=== PATIENT | male | born 1985 | race Caucasian/White ===

== ENCOUNTER 2020-06-20 20:59 | Emergency (ER) | payer SELFPAY ==
--- NOTE | 2020-06-20 21:01 | XR_ITS ---
WS: [id number] CHEST XRAY TECHNIQUE: Portable chest. CLINICAL INFORMATION: cough COMPARISON: FINDINGS: Heart: Normal cardiac silhouette. Lungs: Lungs are clear. No consolidation or pleural effusion. Bones: Normal visualized bony structures. XR/XR chest 1V portable [id number] IMPRESSION: Normal chest
[2020-06-20 21:07] VITALS: BP 110/68; PULSE 74; RESP 18; TEMP 36.8; O2SAT 99; BMI 20.3
--- NOTE | 2020-06-20 21:31 | W.ED.FEVER ---
HPI - Fever General: Chief Complaint: Fever Stated Complaint: covid symptoms Time Seen by Provider: 06/20/20 21:15 History of Present Illness: HPI Narrative: Patient started with fever and chills and muscle aches today. No known COVID exposure. Does have a nonproductive cough MD elicited complaint: fever Onset (ago): hour(s) Measured temperature: 100.2 F Exacerbating factors: nothing Relieving factors: nothing Associated symptoms: Reports chills, cough and nasal congestion; Deny abdominal pain, chest pain, extremity pain, headache(s), nausea or vomiting Review of Systems Const: Reports: fever(s), chills and body aches Eyes: Denies: change in vision or blurry vision ENMT: Reports: nasal congestion Card: Denies: chest pain or dyspnea on exertion Resp: Reports: non-productive cough; Denies: dyspnea or productive cough GI: Denies: abdominal pain, nausea or vomiting : Denies: difficulty urinating Musc: Denies: extremity pain Skin/Breast: Denies: rash Neuro: Denies: headache(s) Psych: Denies: anxiety or depression Rogerio/Lymph: Denies: easy bruising Physical Exam Const: COMMON NORMALS: no acute distress, average body habitus and patient oriented x3 HENMT: COMMON NORMALS: normocephalic HEAD & SCALP: normal to inspection and normocephalic FACE & SINUS: normal facial exam Eye: COMMON NORMALS: conjunctivae normal GENERAL EYE: appearance normal, both eyes and all related structures CONJUNCTIVA: Yes conjunctivae normal Neck/C-Spine: COMMON NORMALS: no JVD Chest: COMMONS NORMALS: normal inspection of the chest Resp: COMMON NORMALS: normal respiratory effort Cardio: COMMON NORMALS: no JVD, regular rate and regular rhythm RATE: regular rate RHYTHM: regular rhythm Extremity: COMMON NORMALS: normal to inspection and full ROM Neuro: COMMON NORMALS: patient oriented x3 Course Vital Signs: Vital signs: Vital Signs Temperature 98.3 F 06/20/20 21:07 Pulse Rate 73 06/20/20 22:06 Respiratory Rate 18 06/20/20 22:06 Blood Pressure 113/65 06/20/20 22:06 Pulse Oximetry 98 06/20/20 22:06 Discharge Plan Discharge Patient Disposition: Home Clinical Impression: Viral infection Condition: Stable Discharge Orders: Discharge Order (Routine); Ordered 06/20/20 Ordered By: Donnie Neal Discharge Diet: Usual diet Discharge Activity: Increase activity as tolerated Patient Instructions: Viral Syndrome (ED) Activity Restrictions/Additional Instructions: Follow-up with medical provider as directed. Take Tylenol and/or ibuprofen for discomfort and fever. Return to the ER or your medical provider if condition worsens. Please read and understand discharge instructions. If any questions ask please. Self quarantine until test results are back which should be about 3 to 4 days Discharge Date/Time: 06/20/20 22:08 Coding Level of Care Code ED Sales Service Executive for Maria L Fwd Exam Comprehensive
[2020-06-20 22:06] VITALS: BP 113/65; PULSE 73; RESP 18; O2SAT 98
[2020-06-22 15:28] LABS: Quest SARS-CoV-2 RNA NOT DETECTED (NOT DETECTED)
--- NOTE | 2020-06-22 16:42 | PC.NURSE ---
PT CONTACTED AND INFORMED OF HIS NEG COVID RESULTS.
== END 2020-06-20 22:08 | disposition home or self-care (01) ==
PROVIDERS: Emergency Provider Nurse Practitioner Family
DX: R50.9 Fever, unspecified (principal)
CPT/HCPCS: 12345; 71045; 87635; 99281; 99283

== ENCOUNTER 2020-09-06 11:56 | Emergency (ER) | payer SELFPAY ==
[2020-09-06 12:04] VITALS: BP 135/99; PULSE 102; RESP 18; TEMP 36.6; O2SAT 100; BMI 20.9
--- NOTE | 2020-09-06 12:19 | XRR_ITS ---
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 COMPARISON: [place] wo [place]* [id number] 11/05/2013 1:15 PM FINDINGS: Bones/joints: Normal. No acute fracture. Normal alignment. Soft tissues: Unremarkable. XR/XR thoracic spine 3V* [id number] IMPRESSION: No acute findings.
--- NOTE | 2020-09-06 12:23 | W.ED.BACK ---
HPI - Back Pain/Injury General: Chief Complaint: Back Pain/Injury Stated Complaint: BACK PAIN/SOB Time Seen by Provider: 09/06/20 12:18 Source: patient Mode of arrival: ambulatory Limitations: no limitations History of Present Illness: HPI Narrative: Pleasant 35-year-old male patient presents to the emergency department with 2-day history of thoracic back pain. He reports lifting cross ties yesterday, reports pain started with activity, worsened throughout the day and is much worse this morning. He reports pain is located between his shoulder blades, medicated with Tylenol and ibuprofen without much relief. He reports pain when taking a deep breath, pain reproduced to the back. Denies fever chills or weakness of the upper or lower extremities. MD elicited complaint: back pain and back injury Onset (ago): day(s) (2) Timing: constant and progressively worsening Severity: moderate Quality: sharp and aching Location: thoracic spine Radiation: none Exacerbating factors: movement and deep breaths Relieving factors: immobilization and supine Context: while lifting Associated symptoms: Reports no associated symptoms; Deny abdominal pain, chills, dysuria, fatigue, fever(s), nausea, urinary urgency or vomiting Treatments prior to arrival: NSAIDS and acetaminophen Review of Systems General: Reports: 10 or more systems reviewed and unremarkable except in HPI and below Const: Denies: fever(s), chills, body aches, fatigue, malaise or diaphoresis Eyes: Denies: blurry vision, eye discomfort or eye redness ENMT: Denies: throat pain, uvular edema, hoarseness, dental pain, disequilibrium or nasal discharge Card: Denies: chest pain, palpitations, irregular heart rhythm or dyspnea on exertion Resp: Denies: dyspnea, productive cough, non-productive cough or wheezing GI: Denies: abdominal pain, nausea or vomiting : Denies: dysuria, urinary urgency, difficulty starting urination or urinary incontinence Musc: Reports: back pain and limited range of motion (upper back); Denies: neck pain, joint stiffness, muscle cramps or muscle weakness Skin/Breast: Denies: rash or pruritus Neuro: Denies: headache(s), weakness in extremities or behavioral changes Rogerio/Lymph: Denies: easy bruising Physical Exam Const: COMMON NORMALS: no acute distress, patient oriented x3, healthy appearing and alert GENERAL APPEARANCE: cooperative, comfortable, well kempt and well hydrated ORIENTATION/CONSCIOUSNESS: Yes awake, Yes oriented to person, Yes oriented to place and Yes oriented to time HENMT: COMMON NORMALS: normocephalic, atraumatic, Normal external nose present and moist oral mucous membranes HEAD & SCALP: normal to inspection, normocephalic and atraumatic FACE & SINUS: normal facial exam NOSE: Normal external nose present MOUTH: Normal oral and palatal mucosa present THROAT: no uvular edema Eye: COMMON NORMALS: Equal, round and reactive pupils present and EOMs intact bilaterally GENERAL EYE: appearance normal, both eyes and all related structures PUPIL: Yes Equal, round and reactive pupils present Neck/C-Spine: COMMON NORMALS: full ROM and no lymphadenopathy GENERAL: Yes normal visual inspection, Yes trachea midline and No anterior neck swelling CERVICAL SPINE: Yes cervical ROM normal, No pain with cervical ROM, No Cervical spine tenderness, No Paracervical muscle tenderness, No Paracervical spasm and No Trapezius muscle tenderness Lymph: LYMPHATIC: no lymphadenopathy noted Chest: COMMONS NORMALS: normal inspection of the chest and normal palpation of entire chest wall CHEST: Yes localized rib tenderness with anteroposterior compression Resp: COMMON NORMALS: normal respiratory effort, No retractions, No use of accessory muscles and clear to auscultation bilaterally EFFORT & INSPECTION: Yes able to speak in complete sentences AUSCULTATION: clear to auscultation bilaterally Cardio: COMMON NORMALS: regular rhythm, S1 normal heart sound present, S2 normal heart sound present and Peripheral pulses 2+ throughout RHYTHM: regular rhythm HEART SOUNDS: S1 normal heart sound present and S2 normal heart sound present PERIPHERAL PULSES: Peripheral pulses 2+ throughout GI: COMMON NORMALS: Soft to palpation and non-tender INSPECTION: Yes normal to inspection PALPATION: Yes Soft to palpation : COMMON NORMALS: Yes no CVA tenderness BLADDER/KIDNEY EXAM: Yes no CVA tenderness and No CVA tenderness Back/Pelvis: COMMON NORMALS: no CVA tenderness and thoracic and lumbar spine normal to inspection GENERAL BACK: No CVA tenderness THORACIC SPINE/UPPER BACK: Yes ROM limited, Yes pain with ROM, Yes thoracic spinal tenderness T-spine tenderness location: T5, T6, T7 and T8, No paraspinal muscle tenderness and No paraspinal muscle spasm LUMBAR SPINE/LOWER BACK: Yes normal to inspection, Yes lumbar ROM normal, No pain with ROM, No lumbar spinal tenderness, No paraspinal muscle tenderness and No paraspinal muscle spasm PELVIS: Yes buttocks normal SACROILIAC JOINTS: Yes SI joints normal SACRUM: no ecchymosis COCCYX: no swelling Extremity: COMMON NORMALS: normal to inspection and capillary refill normal Neuro: JCARLOS COMA SCALE: document GCS findings Jcarlos coma scale eye opening: Spontaneous Jcarlos coma scale verbal response: Orientated [place] coma scale motor response: Obey commands Jcarlos coma scale total score: 15 COMMON NORMALS: patient oriented x3 and no focal motor deficits SENSORIUM/ORIENTATION: Yes alert, Yes oriented to person, Yes oriented to place and Yes oriented to time SPEECH: speech normal GAIT: Yes Normal gait present MOTOR EXAM: 5/5 motor strength present throughout Psych: COMMON NORMALS: mental status grossly normal, Normal thought process present and cooperative APPEARANCE: Yes well kempt ACTIVITY/MOTOR BEHAVIOR: Yes appropriate eye contact THOUGHT PROCESS: Normal thought process present Skin: COMMON NORMALS: no rashes or lesions noted and turgor normal GENERAL SKIN EXAM: no rashes or lesions noted and turgor normal Course Vital Signs: Vital signs: Vital Signs Temperature 97.8 F 09/06/20 12:04 Pulse Rate 102 H 09/06/20 12:04 Respiratory Rate 18 09/06/20 12:04 Blood Pressure 135/99 09/06/20 12:04 Pulse Oximetry 100 09/06/20 12:04 MDM - Back Pain/Injury Imaging Data^: Xray Ortho: Radiologist's impression: [address] [address] XRay Report Signed Patient: Rinku Mora Unit #: [id number] : 1985 Age/Sex: 35 / M ADM Date: 09/06/20 Loc: ER Room/Bed: Attending Dr: Ordering Provider/Ordering MD: Sandra Sylvester Date of Service: 09/06/20 Procedure(s): XR thoracic spine 3V* [id number] Accession Number(s): [id number] Report Number: [id number] PROCEDURE INFORMATION: Exam: XR Thoracic Spine, 3 Views Exam date and time: 09/06/2020 12:30 PM Age: 35 years old Clinical indication: Pain in thoracic spine; Patient HX: 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 COMPARISON: [place]* [id number] 11/05/2013 1:15 PM FINDINGS: Bones/joints: Normal. No acute fracture. Normal alignment. Soft tissues: Unremarkable. XR/XR thoracic spine 3V* [id number] IMPRESSION: No acute findings. Dictated By: Robin eBavers Signed By: Robin Beavers Signed Date/Time: 09/06/201357 DD/ 56 Discharge Plan Discharge Patient Disposition: Home Clinical Impression: Thoracic back sprain Qualifiers: Encounter type: initial encounter Qualified Code(s): S23.9XXA - Sprain of unspecified parts of thorax, initial encounter Thoracic back pain Qualifiers: Chronicity: acute Back pain laterality: midline Qualified Code(s): M54.6 - Pain in thoracic spine Condition: Stable Prescriptions: New cyclobenzaprine 10 mg tablet 10 mg PO TID PRN (Reason: muscle spasm) Qty: 15 RF: 0 IBU 800 mg tablet 800 mg PO TID PRN (Reason: pain) Qty: 30 RF: 0 Discharge Orders: Discharge Order (Routine); Ordered 09/06/20 Ordered By: Sandra Sylvester Discharge Diet: Usual diet Discharge Activity: Limit activity as instructed Patient Instructions: Muscle Strain (ED), Back Pain (ED) Activity Restrictions/Additional Instructions: Do not drive while taking cyclobenzaprine, do not operate heavy machinery as medication will cause drowsiness Do not take [id number] ibuprofen Aleve or naproxen as duplication of therapy can occur with use of prescribed ibuprofen Warm compresses alternate with cool compresses, apply to area as needed for pain Return to the emergency department if you develop upper extremity weakness, difficulty walking or fever/chills No heavy lifting for the next 48 to 72 hours Follow up with your PCP next week if not improved Stand Alone Forms: Work/School Release Coding Level of Care Code ED Gas Furnace Installer for Maria L Fwghazala Exam Comprehensive
[2020-09-06] MEDS: acetaminophen 500 mg Tablet 1000 MG PO (14:20)
== END 2020-09-06 14:23 | disposition home or self-care (01) ==
PROVIDERS: Emergency Provider Nurse Practitioner Family
DX: S23.9XXA Sprain of unspecified parts of thorax, initial encounter (principal); X50.0XXA Overexertion from strenuous movement or load, initial encounter
CPT/HCPCS: 12345; 72072; 99281; 99283

== ENCOUNTER 2022-01-10 11:36 | Emergency (ER) | payer SELFPAY ==
[2022-01-10 12:11] VITALS: BP 104/63; PULSE 67; RESP 15; TEMP 36.6; O2SAT 96; BMI 20.3
--- NOTE | 2022-01-10 13:02 | ED_ITS ---
HPI - Ear Problem General: Chief complaint: Ear Stated complaint: right ear pain Time Seen by Provider: 01/10/22 12:26 History of Present Illness: Patient is a 36-year-old male comes to the ED with right ear pain. Symptoms started yesterday. denies any injury to head. Denies any clear, bloody or purulent drainage from right ear. He says the ear feels full and he has trouble hearing out of the right ear. He rates the pain a 7 out of 10. Denies getting any water in ear recently. Associated symptoms: Reports ear or mastoid pain (right ear pain); Denies fever(s), headache(s) or neck pain Review of Systems Const: Denies: fever(s), chills or fatigue Eyes: Denies: change in vision or eye discomfort ENMT: Reports: ear or mastoid pain (right ear pain); Denies: throat pain, odynophagia, nasal discharge or nasal congestion Card: Denies: chest pain, palpitations, edema, swelling of feet/ankles, dyspnea on exertion or orthopnea Resp: Denies: dyspnea, productive cough or non-productive cough GI: Denies: abdominal pain, nausea, vomiting, diarrhea, constipation or hematochezia : Denies: flank pain, difficulty urinating, dysuria or hematuria Musc: Denies: neck pain, back pain or extremity swelling Skin/Breast: Denies: rash or new lesions Neuro: Denies: headache(s), numbness in extremities or weakness in extremities PFS ED PFSH: Medical History No pertinent family history Surgical History No pertinent past surgical history Physical Exam Const: COMMON NORMALS: no acute distress, patient oriented x3 and alert GENERAL APPEARANCE: cooperative and comfortable HENMT: COMMON NORMALS: normocephalic HEAD & SCALP: normocephalic EXTERNAL AUDITORY CANAL: Abnormal EAC present EAC laterality: right Details: erythema, edema and EAC tenderness TYMPANIC MEMBRANE: TM normal on the left and unable to visualize TM (Could not see left TM due to EAC swelling) MOUTH: Normal oral and palatal mucosa present THROAT: posterior oropharynx normal a nd uvula midline Neck/C-Spine: COMMON NORMALS: supple GENERAL: Yes normal visual inspection Resp: COMMON NORMALS: normal respiratory effort, No retractions, No use of accessory muscles and clear to auscultation bilaterally AUSCULTATION: clear to auscultation bilaterally Cardio: COMMON NORMALS: regular rate, regular rhythm, S1 normal heart sound present, S2 normal heart sound present, No gallops present (Cardio), No clicks present (Cardio), No murmurs present (Cardio) and Peripheral pulses 2+ throughout RATE: regular rate RHYTHM: regular rhythm HEART SOUNDS: S1 normal heart sound present and S2 normal heart sound present PERIPHERAL PULSES: Peripheral pulses 2+ throughout GI: COMMON NORMALS: Normal to inspection, nondistended, normoactive bowel sounds present, Soft to palpation, non-tender and no masses PALPATION: Yes Soft to palpation : COMMON NORMALS: Yes no CVA tenderness BLADDER/KIDNEY EXAM: Yes no CVA tenderness Back/Pelvis: COMMON NORMALS: no CVA tenderness Extremity: COMMON NORMALS: normal to inspection Neuro: COMMON NORMALS: patient oriented x3 SENSORIUM/ORIENTATION: Yes alert Skin: GENERAL SKIN EXAM: dry skin Course Vital Signs: Vital signs: Vital Signs Temperature 97.8 F 01/10/22 12:11 Pulse Rate 67 01/10/22 12:11 Respiratory Rate 15 01/10/22 12:11 Blood Pressure 104/63 01/10/22 12:11 Pulse Oximetry 96 01/10/22 12:11 MDM - Ear Medical Decision Making Patient is a 36-year-old male comes to the ED with right ear pain. Vitals are stable. Exam of right ear shows a swollen erythemic and tender external auditory canal. I was unable to visualize TM due to EAC swelling. Patient diagnosed with otitis externa and was discharged home with Ciprodex and some cefdinir to cover possible inner ear infection since I was unable to visualize TM. He was told to follow-up with PCP in the next 5 to 7 days reevaluation. Return ED precautions given. Patient understood agree with plan. Discharge Plan Discharge Patient Disposition: Home Clinical Impression: Otitis externa Qualifiers: Otitis externa type: unspecified type Chronicity: acute Laterality: right Qualified Code(s): H60.501 - Unspecified acute noninfective otitis externa, right ear Condition: Stable Prescriptions: New Ciprodex 0.3-0.1 % drops,suspension 4 drp otic (ear) BID 7 Days Qty: 7.5 0RF cefdinir 300 mg capsule 300 mg PO BID 10 Days Qty: 20 0RF No Action cyclobenzaprine 10 mg tablet 10 mg PO TID PRN (Reason: muscle spasm) Qty: 15 0RF IBU 800 mg tablet 800 mg PO TID PRN (Reason: pain) Qty: 30 0RF Rx Instructions: take 1 PO TID PRN pain - take with food to avoid stomach upset Discharge Orders: Discharge ED (Routine); Ordered 01/10/22 Ordered By: Priyank Ledezma Discharge Diet: Regular Discharge Activity: Increase activity as tolerated Activity Restrictions/Additional Instructions: Follow-up with medical provider as directed in the next 5 to 7 days for reevaluation. Take medications as prescribed. Return to the ER or your medical provider if condition worsens. Please read and understand discharge instructions. Thank you for choosing [facility] for your healthcare needs today. Please realize this is an emergency room and that we are providing you with a medical screening exam and this may not be complete and all inclusive of all the testing and or work up that you may need to determine your ailment or severity of your illness. It is very important that you follow up as instructed or that you return to the Emergency Department should you have concerns or if your condition changes or worsens in any way. Coding Level of Care Code ED Market Research Associate for Maria L Bradshaw Exam Comprehensive
[2022-01-10] MEDS: carbamide peroxide Otic 15 mL Btl 5 DROP EAR-RIGHT (14:07)
== END 2022-01-10 15:00 | disposition home or self-care (01) ==
PROVIDERS: Emergency Provider Physician Assistant
DX: H60.501 Unspecified acute noninfective otitis externa, right ear (principal)
CPT/HCPCS: 99282

== ENCOUNTER 2022-01-17 08:54 | Emergency (ER) | payer SELFPAY ==
[2022-01-17 09:04] VITALS: BP 112/54; PULSE 73; RESP 15; TEMP 36.5; O2SAT 100; BMI 20.3
--- NOTE | 2022-01-17 09:25 | ED_ITS ---
HPI - Ear Problem General: Chief complaint: Ear Stated complaint: R Ear pain Time Seen by Provider: 01/17/22 09:05 History of Present Illness: Patient is a 36-year-old male comes to the ED with right ear pain. Patient was seen here in the ED for same complaint back on January 10 and he was diagnosed with otitis externa. Patient has been using his Ciprodex eardrops as prescribed daily along with taking the oral antibiotic. He is still having a lot of pain in right ear. Denies any ear discharge or drainage. Pain is rated a 10 out of 10. Associated symptoms: Reports ear or mastoid pain; Denies fever(s), headache(s) or neck pain Review of Systems Const: Denies: fever(s), chills or fatigue Eyes: Denies: change in vision or eye discomfort ENMT: Reports: ear or mastoid pain; Denies: throat pain, odynophagia, nasal discharge or nasal congestion Card: Denies: chest pain, palpitations, edema, swelling of feet/ankles, dyspnea on exertion or orthopnea Resp: Denies: dyspnea, productive cough or non-productive cough GI: Denies: abdominal pain, nausea, vomiting, diarrhea, constipation or hematochezia : Denies: flank pain, difficulty urinating, dysuria or hematuria Musc: Denies: neck pain, back pain or extremity swelling Skin/Breast: Denies: rash or new lesions Neuro: Denies: headache(s), numbness in extremities or weakness in extremities PFS ED PFSH: Medical History No pertinent family history Surgical History No pertinent past surgical history Physical Exam Const: COMMON NORMALS: patient oriented x3 and alert GENERAL APPEARANCE: cooperative and comfortable HENMT: COMMON NORMALS: normocephalic HEAD & SCALP: normocephalic EXTERNAL AUDITORY CANAL: Abnormal EAC present EAC laterality: right Details: erythema, edema and EAC tenderness MOUTH: Normal oral and palatal mucosa present THROAT: posterior oropharynx normal and uvula midline Neck/C-Spine: COMMON NORMALS: supple GENERAL: Yes normal visual inspection Resp: COMMON NORMALS: normal respiratory effort, No retractions, No use of accessory muscles and clear to auscultation bilaterally AUSCULTATION: clear to auscultation bilaterally Cardio: COMMON NORMALS: regular rate, regular rhythm, S1 normal heart sound present, S2 normal heart sound present, No gallops present (Cardio), No clicks present (Cardio), No murmurs present (Cardio) and Peripheral pulses 2+ throughout RATE: regular rate RHYTHM: regular rhythm HEART SOUNDS: S1 normal heart sound present and S2 normal heart sound present PERIPHERAL PULSES: Peripheral pulses 2+ throughout GI: COMMON NORMALS: Normal to inspection, nondistended, normoactive bowel sounds present, Soft to palpation, non-tender and no masses PALPATION: Yes Soft to palpation : COMMON NORMALS: Yes no CVA tenderness BLADDER/KIDNEY EXAM: Yes no CVA tenderness Back/Pelvis: COMMON NORMALS: no CVA tenderness Extremity: COMMON NORMALS: normal to inspection Neuro: COMMON NORMALS: patient oriented x3 and moves all extremities SENSORIUM/ORIENTATION: Yes alert Skin: GENERAL SKIN EXAM: dry skin Course Vital Signs: Vital signs: Vital Signs Temperature 97.7 F 01/17/22 09:04 Pulse Rate 73 01/17/22 09:04 Respiratory Rate 15 01/17/22 09:04 Blood Pressure 112/54 01/17/22 09:04 Pulse Oximetry 100 01/17/22 09:04 MDM - Ear Medical Decision Making Patient is a 36-year-old male comes to the ED with right ear pain. He was seen here in the ED for same complaint back on January 10 and was given an oral antibiotic and Ciprodex eardrops. He has been using those and does not have any improvement. Patient's right external auditory canal has tenderness, swelling and erythema. Since patient's right otitis externa does not seem to be improving much I am referring him to ENT for follow-up. I placed order with case management for patient to be set up with an appointment with ENT specialist. He was sent home with a prescription for tramadol for pain and told to continue using his eardrops as previously prescribed. Patient understood and agreed with plan. Discharge Plan Discharge Patient Disposition: Home Clinical Impression: Otitis externa Condition: Stable Prescriptions: No Action cyclobenzaprine 10 mg tablet 10 mg PO TID PRN (Reason: muscle spasm) Qty: 15 0RF IBU 800 mg tablet 800 mg PO TID PRN (Reason: pain) Qty: 30 0RF Rx Instructions: take 1 PO TID PRN pain - take with food to avoid stomach upset cefdinir 300 mg capsule 300 mg PO BID 10 Days Qty: 20 0RF Discharge Orders: Discharge ED (Routine); Ordered 01/17/22 Ordered By: Priyank Ledezma Discharge Diet: Regular Discharge Activity: Increase activity as tolerated Patient Instructions: Otitis Externa - Adult Activity Restrictions/Additional Instructions: Follow-up with medical provider as directed. Case management should be contacting you in the next of days set up an appointment with ENT doctor. Continue using eardrops and taking oral antibiotic as prescribed. Take medications as prescribed.Return to the ER or your medical provider if condition worsens. Please read and understand discharge instructions. Thank you for choosing [facility] for your healthcare needs today. Please realize this is an emergency room and that we are providing you with a medical screening exam and this may not be complete and all inclusive of all the testing and or work up that you may need to determine your ailment or severity of your illness. It is very important that you follow up as instructed or that you return to the Emergency Department should you have concerns or if your condition changes or worsens in any way. Coding Level of Care Code ED Collections Attorney for Maria L Fwd Exam Comprehensive
[2022-01-17] MEDS: TRAMadol 50 mg Tablet 100 MG PO (10:00)
--- NOTE | 2022-01-18 13:14 | DCPLANNER ---
Addendum entered by Tere Huang 02/01/22 12:38: Patient had a follow up appointment scheduled for 01.22.22 with ENT - patient did attend appointment. Addendum entered by Tere Huang 01/19/22 06:56: Patient has a follow up appointment scheduled for Saturday, January 22, 2022 at 3:[address] Celis at ENT. Clinic will call patient with appointment information. Original Note: manager books had message to schedule a follow up appointment for patient with ENT. manager books sent patients information to the front office staff at ENT for review. Patients information will be printed and reviewed. Clinic will call patient with appointment information.
== END 2022-01-17 10:15 | disposition home or self-care (01) ==
PROVIDERS: Emergency Provider Physician Assistant
DX: H60.91 Unspecified otitis externa, right ear (principal)
CPT/HCPCS: 99283

== ENCOUNTER 2022-05-29 11:11 | Emergency (ER) | payer SELFPAY ==
[2022-05-29 12:16] VITALS: BP 108/67; PULSE 69; RESP 16; TEMP 37.1; O2SAT 99; BMI 20.9
--- NOTE | 2022-05-29 12:21 | ED_ITS ---
HPI - Dental/Oral General: Chief complaint: Dental/Oral Stated complaint: sore throat Time Seen by Provider: 05/29/22 11:14 [facility] ED PFSH: Medical History Hepatitis C No pertinent family history Surgical History History of appendectomy History of cholecystectomy History of tonsillectomy No pertinent past surgical history Family History Other Diabetes Hypertension Social History Smoking and tobacco status: current every day smoker (.5 half a pack a day for 20 yrs) cigarettes Packs smoked per day: 0.5 Years cigarettes smoked: 20 Course Vital Signs: Vital signs: Vital Signs Temperature 98.7 F 05/29/22 12:16 Pulse Rate 69 05/29/22 12:16 Respiratory Rate 16 05/29/22 12:16 Blood Pressure 108/67 05/29/22 12:16 Pulse Oximetry 99 05/29/22 12:16 Discharge Plan Discharge Condition: Stable Prescriptions: No Action cyclobenzaprine 10 mg tablet 10 mg PO TID PRN (Reason: muscle spasm) Qty: 15 0RF IBU 800 mg tablet 800 mg PO TID PRN (Reason: pain) Qty: 30 0RF Rx Instructions: take 1 PO TID PRN pain - take with food to avoid stomach upset Coding Level of Care Code ED Information And Referral Director for Maria L Bradshaw
--- NOTE | 2022-05-29 12:26 | ED_ITS ---
HPI - General Adult General: Chief complaint: Dental/Oral Stated complaint: sore throat Time Seen by Provider: 05/29/22 11:14 Source: patient Mode of arrival: ambulatory Limitations: no limitations History of Present Illness: Patient is a 37-year-old male who presents to ED today with complaint of sore throat that started yesterday. He feels like he is swallowing razor blades . States he is eating and drinking normally. He is not having any difficulty breathing. He is controlling saliva. He states he has no other symptoms apart from the throat pain. No fevers. Onset (ago): day(s) (yesterday) Severity: moderate Quality: sharp Pain Consistency: constant Relieving factors: other (cough drops) Exacerbating factors: other (swallowing) Associated symptoms: Reports no associated symptoms; Deny chest pain, dyspnea, headache(s), malaise, nausea or vomiting Review of Systems Const: Denies: fever(s), chills, body aches, fatigue or malaise Eyes: Denies: change in vision, blurry vision, photophobia, floaters or seeing flashes ENMT: Reports: throat pain and odynophagia; Denies: uvular edema, enlarged tonsils, hoarseness, mouth pain, swelling of lips/tongue, oral sores, bleeding gums, dental pain, ear or mastoid pain, nasal discharge, nasal congestion, post nasal drip or sinus pain Card: Denies: chest pain Resp: Denies: dyspnea GI: Denies: abdominal pain, nausea or vomiting Musc: Denies: neck pain Neuro: Denies: headache(s) PFS ED PFSH: Medical History Hepatitis C No pertinent family history Surgical History History of appendectomy History of cholecystectomy History of tonsillectomy No pertinent past surgical history Family History Other Diabetes Hypertension Social History Smoking and tobacco status: current every day smoker (.5 half a pack a day for 20 yrs) cigarettes Packs smoked per day: 0.5 Years cigarettes smoked: 20 Physical Exam Const: COMMON NORMALS: no acute distress, average body habitus, patient or iented x3, no limitations, healthy appearing, alert and well nourished GENERAL APPEARANCE: cooperative ORIENTATION/CONSCIOUSNESS: Yes awake, Yes o riented to person, Yes oriented to place and Yes oriented to time HENMT: COMMON NORMALS: normocephalic, atraumatic, Normal nasal mucous membranes and turbinates present and moist oral mucous membranes HEAD & SCALP: normal to inspection, normocephalic and atraumatic FACE & SINUS: normal facial exam NOSE: Normal nasal mucous membranes and turbinates present MOUTH: Normal oral and palatal mucosa present, lip normal and tongue normal TEETH & GINGIVA: Yes poor dentition THROAT: uvula midline and other (maybe slight oropharyngeal erythema; s/p tonsillectomy); no uvular edema Eye: GENERAL EYE: appearance normal, both eyes and all related structures Neck/C-Spine: COMMON NORMALS: full ROM, no lymphadenopathy and no meningeal signs GENERAL: Yes normal visual inspection, No anterior neck swelling and No submandibular swelling Resp: COMMON NORMALS: normal respiratory effort and clear to auscultation bilaterally AUSCULTATION: clear to auscultation bilaterally Neuro: COMMON NORMALS: patient oriented x3 and CN's II-XII intact bilaterally SENSORIUM/ORIENTATION: Yes alert, Yes oriented to person, Yes oriented to place and Yes oriented to time MENINGEAL SIGNS: Yes no meningeal signs Skin: COMMON NORMALS: no rashes or lesions noted GENERAL SKIN EXAM: no rashes or lesions noted Course Vital Signs: Vital signs: Vital Signs Temperature 98.7 F 05/29/22 12:16 Pulse Rate 69 05/29/22 12:16 Respiratory Rate 16 05/29/22 12:16 Blood Pressure 108/67 05/29/22 12:16 Pulse Oximetry 99 05/29/22 12:16 [facility] - General Adult Medical Decision Making Strep is negative. Vital signs are normal. There is no need for antibiotic therapy at this time. Discussed conservative treatments at home. Will prescribe viscous lidocaine that he can use temporarily for relief. Return to ED precautions given. Otherwise he can follow-up with PCP in 3 to 5 days if symptoms do not seem to be improving. Lab Data Laboratory Results Group A Strep Rapid Negative (Negative) 05/29/22 12:27 Discharge Plan Discharge Patient Disposition: Home Clinical Impression: Acute pharyngitis Condition: Stable Prescriptions: New Lidocaine Viscous 2 % solution 15 ml MUCOUS MEM QID Qty: 100 0RF Rx Instructions: Mix with water and gargle for 30-60 seconds, then spit No Action cyclobenzaprine 10 mg tablet 10 mg PO TID PRN (Reason: muscle spasm) Qty: 15 0RF IBU 800 mg tablet 800 mg PO TID PRN (Reason: pain) Qty: 30 0RF Rx Instructions: take 1 PO TID PRN pain - take with food to avoid stomach upset Discharge Orders: Discharge ED (Routine); Ordered 05/29/22 Ordered By: Odalis Carcamo Coding Level of Care Code ED Employment Representative for Maria L Bradshaw
[2022-05-29 12:48] LABS: Rapid Strep A Test Negative (Negative)
== END 2022-05-29 13:36 | disposition home or self-care (01) ==
PROVIDERS: Emergency Provider Physician Assistant
DX: J02.9 Acute pharyngitis, unspecified (principal); Z86.19 Personal history of other infectious and parasitic diseases; F17.210 Nicotine dependence, cigarettes, uncomplicated
CPT/HCPCS: 87081; 87880; 99283

== ENCOUNTER 2022-10-09 09:03 | Emergency (ER) | payer SELFPAY ==
[2022-10-09 09:37] VITALS: BP 117/69; PULSE 77; TEMP 36.6; O2SAT 96; BMI 20.9
--- NOTE | 2022-10-09 10:01 | XR_ITS ---
WS: [id number] Right ankle, 3 views, 10/09/2022 Clinical Data: Pain Comparison: None. Findings: No fractures or dislocations are seen. The ankle mortise is normal. The talus and calcaneus are unrem arkable. No soft tissue swelling over the medial or lateral malleolus is seen. XR/XR ankle RT min 3V* [id number] Impression: Negative right ankle.
--- NOTE | 2022-10-09 10:20 | ED_ITS ---
HPI - Extremity Problem General: Chief complaint: Extremity Problem,Nontraumatic Stated complaint: Right leg and feet are swelling Time Seen by Provider: 10/09/22 10:01 Source: patient Mode of arrival: ambulatory History of Present Illness: 37-year-old male presents emergency room complaining of right leg pain and swelling in the distal tibia laterally. He cannot recall any trauma that began 2 days ago and is persisted he perceives her to be some swelling there he is not recall any direct blow or injury he is able to ambulate on it no fever sweats chills no chest pain or shortness of breath MD Complaint: extremity pain and extremity swelling Onset (ago): day(s) (2) Pain Consistency: constant Location: right Quality: aching Radiation: distal Relieving factors: nothing Exacerbating factors: nothing Associated symptoms: Deny arthralgias, chest pain, fever(s), myalgias, rash, short of breath or other Review of Systems Const: Denies: fever(s), chills, fatigue or malaise ENMT: Denies: throat pain, ear or mastoid pain, nasal discharge or nasal congestion Card: Denies: chest pain Resp: Denies: dyspnea, productive cough or non-productive cough GI: Denies: abdominal pain, nausea, vomiting, hematemesis, coffee ground emesis, diarrhea, constipation, bloating, hematochezia or melena : Denies: flank pain, dysuria, urinary frequency or urinary urgency Skin/Breast: Denies: rash PFSH ED PFSH: Medical History Hepatitis C No pertinent family history Surgical History History of appendectomy History of cholecystectomy History of tonsillectomy No pertinent past surgical history Family History Other Diabetes Hypertension Social History Smoking and tobacco status: current every day smoker (.5 half a pack a day for 20 yrs) cigarettes Packs smoked per day: 0.5 Years cigarettes smoked: 20 Physical Exam Const: GENERAL APPEARANCE: cooperative and comfortable ORIENTATION/CONSCIOUSNESS: Yes awake, Yes oriented to person, Yes oriented to place and Yes oriented to time HENMT: COMMON NORMALS: normocephalic, atraumatic and hearing grossly normal bilaterally HEAD & SCALP: normocephalic and atraumatic Resp: COMMON NORMALS: normal respiratory effort, No retractions, No use of accessory muscles and clear to auscultation bilaterally AUSCULTATION: clear to auscultation bilaterally Cardio: COMMON NORMALS: regular rate, regular rhythm and No murmurs present (Cardio) RATE: regular rate RHYTHM: regular rhythm GI: COMMON NORMALS: Soft to palpation and No hepatosplenomegaly present AUSCULTATION: Yes normoactive bowel sounds PALPATION: Yes Soft to palpation, No Tenderness to palpation present (GI), No Guarding due to palpation present (GI) and Yes No hepatosplenomegaly present Extremity: COMMON NORMALS: normal to inspection, capillary refill normal, no clubbing, cyanosis or edema, no calf tenderness and no pedal edema OTHER: Tenderness distal lateral tibia on the right no deformity no edema no ecchymosis no laceration Neuro: SENSORIUM/ORIENTATION: Yes oriented to person, Yes oriented to place and Yes oriented to time Skin: COMMON NORMALS: no rashes or lesions noted GENERAL SKIN EXAM: no rashes or lesions noted Course Vital Signs: Vital signs: Vital Signs Temperature 97.8 F 10/09/22 09:37 Pulse Rate 77 10/09/22 09:37 Blood Pressure 117/69 10/09/22 09:37 Pulse Oximetry 96 10/09/22 09:37 Oxygen Delivery Me thod 10/09/22 09:37 MDM - Extremity (Nontraumatic) Medical Decision Making No acute fracture supportive care follow-up as needed Medical Records I reviewed the patient's medical records. Lab Data I reviewed the patient's lab results. Radiology Impressions Ankle X-Ray 10/09/22 10:01 Impression: Negative right ankle. Tibia/Fibula X-Ray 10/09/22 10:26 Impression: Negative for fracture. Discharge Plan Discharge Patient Disposition: Home Clinical Impression: Leg pain, right Condition: Stable Prescriptions: New diclofenac sodium 75 mg tablet,delayed release (DR/EC) 75 mg PO Q12H PRN (Reason: pain) Qty: 20 0RF No Action cyclobenzaprine 10 mg tablet 10 mg PO TID PRN (Reason: muscle spasm) Qty: 15 0RF IBU 800 mg tablet 800 mg PO TID PRN (Reason: pain) Qty: 30 0RF Rx Instructions: take 1 PO TID PRN pain - take with food to avoid stomach upset Lidocaine Viscous 2 % solution 15 ml MUCOUS MEM QID Qty: 100 0RF Rx Instructions: Mix with water and gargle for 30-60 seconds, then spit Discharge Orders: Discharge ED (Routine); Ordered 10/09/22 Ordered By: Micky Lindquist Discharge Diet: Usual diet Discharge Activity: Resume usual activity Patient Instructions: Opioid Safety, Pain Management Activity Restrictions/Additional Instructions: You were seen in the emergency room for right lower leg pain your x-ray and your exam were normal. Ice elevate use anti-inflammatories if persisting with discomfort follow-up with your primary care doctor. Coding Level of Care Code ED Alarm Signaler for Maria L Fwd Exam Detailed
--- NOTE | 2022-10-09 10:26 | XR_ITS ---
WS: [id number] Right leg including the tibia and fibula, AP and lateral views, 10/09/2022 Clinical Data: pain Comparison: None. Findings: No fractures or dislocations are seen. The tibia and fibula are intact. The soft tissues are normal. XR/XR tibia fibula RT 2V 10023 Impression: Negative for fracture.
== END 2022-10-09 12:45 | disposition home or self-care (01) ==
PROVIDERS: Emergency Provider Family Medicine
DX: M79.604 Pain in right leg (principal); Z86.19 Personal history of other infectious and parasitic diseases; F17.210 Nicotine dependence, cigarettes, uncomplicated
CPT/HCPCS: 73590; 73610; 99283

== ENCOUNTER 2023-02-10 21:33 | Emergency (ER) | payer SELFPAY ==
[2023-02-10 21:44] VITALS: BP 119/76; PULSE 55; RESP 16; TEMP 36.4; O2SAT 100
--- NOTE | 2023-02-10 21:48 | W.ED.DENTAL ---
HPI - Dental/Oral General: Chief complaint: Dental/Oral Stated complaint: Tooth Ache Time Seen by Provider: 02/10/23 21:47 History of Present Illness: 37-year-old male patient comes in today with right upper molar pain radiating into his sinuses. Patient reports symptoms for about 2 days now. Patient feels he needs some antibiotics to treat the infection. Patient appears nontoxic. Patient appears in mild pain. Associated symptoms: Denies fever(s) Review of Systems General: Reports: 10 or more systems reviewed and unremarkable except in HPI and below Const: Denies: fever(s) ENMT: Reports: dental pain Card: Denies: chest pain Resp: Denies: dyspnea GI: Denies: nausea or vomiting : Denies: difficulty urinating Musc: Denies: neck pain or back pain Skin/Breast: Denies: rash PFSH ED PFSH: Medical History Hepatitis C No pertinent family history Surgical History History of appendectomy History of cholecystectomy History of tonsillectomy No pertinent past surgical history Family History Other Diabetes Hypertension Social History Smoking and tobacco status: current every day smoker (.5 half a pack a day for 20 yrs) cigarettes Packs smoked per day: 0.5 Years cigarettes smoked: 20 Physical Exam Const: COMMON NORMALS: alert HENMT: COMMON NORMALS: Normal external nose present FACE & SINUS: Facial tenderness on exam of face and sinuses on the right (Right facial cheek) NOSE: Normal external nose present TEETH & GINGIVA: Yes abnormal tooth and associated gingiva and Yes other (Tenderness to percussion to single molar right upper jaw) Neck/C-Spine: COMMON NORMALS: full ROM Resp: COMMON NORMALS: normal respiratory effort and clear to auscultation bilaterally AUSCULTATION: clear to auscultation bilaterally Cardio: COMMON NORMALS: regular rate RATE: regular rate Back/Pelvis: COMMON NORMALS: thoracic and lumbar spine normal to inspection Extremity: COMMON NORMALS: no pedal edema Neuro: SENSORIUM/ORIENTATION: Yes alert Skin: COMMON NORMALS: turgor normal GENERAL SKIN EXAM: turgor normal Course Vital Signs: Vital signs: Vital Signs Temperature 97.5 F L 02/10/23 21:44 Pulse Rate 55 L 02/10/23 21:44 Respiratory Rate 16 02/10/23 21:44 Blood Pressure 119/76 02/10/23 21:44 Pulse Oximetry 100 02/10/23 21:44 Oxygen Delivery Me thod Room Air 02/10/23 21:44 MDM - Dental/Oral Medical Decision Making 37-year-old male patient comes in today for complaints of right upper jaw pain. On exam patient has a single molar in his right upper plate. There are some mild erythema to the gingiva surrounding the molar. Molar is tender to percussion. Differential diagnosis includes but not limited to dental abscess, dental pain, dental caries. No symmetry is noted in the pharynx. No signs of significant swelling to the face is noted. Believe the patient probably has a dental abscess going into the sinus on the right side. Patient be started on clindamycin 300 mg 4 times a day for the next 7 days. Encourage patient to follow-up with dentist for definitive care. Patient reported understanding. Discharge Plan Discharge Patient Disposition: Home Clinical Impression: Dental abscess Condition: Stable Prescriptions: New Cleocin HCl 300 mg capsule 300 mg PO QID 7 Days Qty: 28 0RF No Action cyclobenzaprine 10 mg tablet 10 mg PO TID PRN (Reason: muscle spasm) Qty: 15 0RF IBU 800 mg tablet 800 mg PO TID PRN (Reason: pain) Qty: 30 0RF Rx Instructions: take 1 PO TID PRN pain - take with food to avoid stomach upset Lidocaine Viscous 2 % solution 15 ml MUCOUS MEM QID Qty: 100 0RF Rx Instructions: Mix with water and gargle for 30-60 seconds, then spit diclofenac sodium 75 mg tablet,delayed release (DR/EC) 75 mg PO Q12H PRN (Reason: pain) Qty: 20 0RF Discharge Orders: Discharge ED (Routine); Ordered 02/10/23 Ordered By: Pan Santiago Discharge Diet: Usual diet Discharge Activity: Increase activity as tolerated Patient Instructions: Dental Abscess (ED) Activity Restrictions/Additional Instructions: Take antibiotics as directed. Use ice or heat to help with pain. Use acetaminophen ibuprofen for further pain control. Follow-up with dentist for definitive care. Return to ED for new concerns. Coding Level of Care Code ED Production Engine Repairer for Maria L Bradshaw
[2023-02-10] MEDS: clindamycin 150 mg Capsule 300 MG PO (22:04)
--- NOTE | 2023-02-13 15:16 | DCPLANNER ---
farm facility manager called patient due to no primary care physician - catalytic case operator unable to speak with patient at this time.
== END 2023-02-10 22:05 | disposition home or self-care (01) ==
PROVIDERS: Emergency Provider Nurse Practitioner Family
DX: K04.7 Periapical abscess without sinus (principal)
CPT/HCPCS: 99283

== ENCOUNTER 2023-09-25 09:24 | Emergency (ER) | payer SELFPAY ==
[2023-09-25 09:30] VITALS: BP 125/61; PULSE 52; RESP 18; TEMP 36.6; O2SAT 99; BMI 19.5
[2023-09-25 09:34] VITALS: O2SAT 95
--- NOTE | 2023-09-25 09:43 | XR_ITS ---
WS: [id number] Exam: XR chest 1V portable [id number] Date/Time of Exam: 09/25/2023 9:45 AM Reason For Exam: dyspnea/cough Comparison 06/20/2020. The lungs are fully expanded and clear. Normal cardiomediastinal silhouette and regional bony element s. No pleural effusions. IMPRESSION: 1. Negative chest.
--- NOTE | 2023-09-25 10:04 | ED_ITS ---
HPI - COVID General: Chief Complaint: COVID symptoms Stated Complaint: sob,fever Time Seen by Provider: 09/25/23 09:42 Source: patient Mode of arrival: ambulatory Limitations: no limitations Triage information: Has fever, cough or shortness of breath . Exposure to COVID + person last 14 days History of Present Illness: 38-year-old male states over the last 2 days he had cough congestion states he had a fever 101 yesterday is afebrile here. States he had body aches he denies any abdominal pain denies any vomiting or diarrhea denies any worsening improving factors. COVID 19 common symptoms: positive chills, non-productive cough, body aches and nasal congestion; negative fever(s), dyspnea, headache(s), throat pain, nausea, vomiting or diarrhea COVID 19 other sytmptoms: negative chest pain COVID Results: SARS-CoV-2 RNA (RT-PCR) Not detected (NOT DETECTED) 06/20/20 2 1:50 SARS-CoV-2 (PCR) Pending 09/25/23 09:52 Coronavirus Type 229E (PCR) Pending 09/25/23 09:52 Review of Systems Const: Reports: chills and body aches; Denies: fever(s) or change in appetite ENMT: Reports: nasal congestion; Denies: throat pain or dental pain Card: Denies: chest pain Resp: Reports: non-productive cough; Denies: dyspnea GI: Denies: abdominal pain, nausea, vomiting or diarrhea Musc: Denies: neck pain or back pain Skin/Breast: Denies: rash Neuro: Denies: headache(s) PFSH ED PFSH: Medical History Hepatitis C No pertinent family history Surgical History History of cholecystectomy History of appendectomy History of tonsillectomy No pertinent past surgical history Family History Other Diabetes Hypertension Social History Smoking and tobacco/nicotine status: current every day tobacco/nicotine user (.5 half a pack a day for 20 yrs) cigarettes Packs smoked per day: 0.5 Years cigarettes smoked: 20 Physical Exam Const: COMMON NORMALS: no acute distress, patient oriented x3 and healthy appearing HENMT: COMMON NORMALS: normocephalic and atraumatic HEAD & SCALP: normocephalic and atraumatic MOUTH: Normal oral and palatal mucosa present THROAT: posterior oropharynx normal Eye: COMMON NORMALS: conjunctivae normal CONJUNCTIVA: Yes conjunctivae normal Neck/C-Spine: COMMON NORMALS: full ROM and supple Chest: COMMONS NORMALS: normal inspection of the chest Resp: COMMON NORMALS: normal respiratory effort, No retractions, No use of accessory muscles and clear to auscultation bilaterally AUSCULTATION: clear to auscultation bilaterally Cardio: COMMON NORMALS: regular rate, regular rhythm and No murmurs present (Cardio) RATE: regular rate RHYTHM: regular rhythm GI: COMMON NORMALS: Normal to inspection, nondistended, normoactive bowel sounds present, Soft to palpation, non-tender and no masses PALPATION: Yes Soft to palpation Extremity: COMMON NORMALS: normal to inspection and full ROM Neuro: COMMON NORMALS: patient oriented x3, moves all extremities and no focal motor deficits Psych: COMMON NORMALS: mental status grossly normal, Normal thought process present and cooperative THOUGHT PROCESS: Normal thought process present Skin: COMMON NORMALS: no rashes or lesions noted and no wounds GENERAL SKIN EXAM: no rashes or lesions noted Course Vital Signs: Vital signs: Vital Signs Temperature 97.8 F 09/25/23 09:30 Pulse Rate 52 L 09/25/23 09:30 Respiratory Rate 18 09/25/23 09:30 Blood Pressure 125/61 09/25/23 09:30 Pulse Oximetry 95 09/25/23 09:34 Oxygen Delivery Me thod Room Air 09/25/23 09:34 MDM - COVID Medical Decision Making Patient presents with cough congestion fever likely upper respiratory infection he is well-appearing here in no distress x-ray shows no pneumonia he is stable for discharge flu is negative COVID is still pending we will call him with results. He is to follow-up with PCP and return if worsening. Medical Records I reviewed the patient's medical records. Lab Data I reviewed the patient's lab results. Laboratory Results Influenza Type A Ag negative (Negative) 09/25/23 10:07 Influenza Type B Ag negative (Negative) 09/25/23 10:07 SARS-CoV-2 RNA (RT-PCR) Not detected (NOT DETECTED) 06/20/20 2 1:50 SARS-CoV-2 (PCR) Pending 09/25/23 09:52 Coronavirus Type 229E (PCR) Pending 09/25/23 09:52 All radiology interpretation(s) finalized by discharge Discharge Plan Discharge Patient Disposition: Home Clinical Impression: Upper respiratory infection Qualifiers: URI type: unspecified URI Qualified Code(s): J06.9 - Acute upper respiratory infection, unspecified Condition: Stable Prescriptions: No Action cyclobenzaprine 10 mg tablet 10 mg PO TID PRN (Reason: muscle spasm) Qty: 15 0RF IBU 800 mg tablet 800 mg PO TID PRN (Reason: pain) Qty: 30 0RF Rx Instructions: take 1 PO TID PRN pain - take with food to avoid stomach upset Lidocaine Viscous 2 % solution 15 ml MUCOUS MEM QID Qty: 100 0RF Rx Instructions: Mix with water and gargle for 30-60 seconds, then spit diclofenac sodium 75 mg tablet,delayed release (DR/EC) 75 mg PO Q12H PRN (Reason: pain) Qty: 20 0RF Discharge Orders: Discharge ED (Routine); Ordered 09/25/23 Ordered By: Pina Key Discharge Diet: Advance as tolerated Discharge Activity: Resume usual activity Patient Instructions: Upper Respiratory Infection (ED) Coding Level of Care Code ED Cessation Systems Outreach Specialist for Maria L Bradshaw
[2023-09-25 10:33] LABS: Influenza A by IFA negative (Negative); Influenza B by IFA negative (Negative)
[2023-09-25 13:44] LABS: Adenovirus Not Detected (NOT DETECT); Chlamydia Pneumoniae Not Detected (NOT DETECT); Human Metapneumovirus Not Detected (NOT DETECT); Human Rhinovirus/Enterovirus Not Detected (NOT DETECT); Influenza A Not Detected (NOT DETECT); Influenza A H1 Not Detected (NOT DETECT); Influenza A H1-2009 Not Detected (NOT DETECT); Influenza A H3 Not Detected (NOT DETECT); Influenza B Not Detected (NOT DETECT); Mycoplasma Pneumoniae Not Detected (NOT DETECT); Parainfluenza Virus Type 1 Not Detected (NOT DETECT); Parainfluenza Virus Type 2 Not Detected (NOT DETECT); Parainfluenza Virus Type 3 Not Detected (NOT DETECT); Parainfluenza Virus Type 4 Not Detected (NOT DETECT); Respiratory Syncytial Virus A Not Detected (NOT DETECT); Respiratory Syncytial Virus B Not Detected (NOT DETECT); SARS-COV-2 Not Detected (NOT DETECT)
[2023-09-25 13:47] LABS: Coronavirus 229E,HKU1,NL63,OC4 Detected (NOT DETECT)
== END 2023-09-25 10:45 | disposition home or self-care (01) ==
PROVIDERS: Family Medicine; Emergency Provider Emergency Medicine
DX: J06.9 Acute upper respiratory infection, unspecified (principal); F17.210 Nicotine dependence, cigarettes, uncomplicated; Z86.19 Personal history of other infectious and parasitic diseases; Z11.52 Encounter for screening for COVID-19
CPT/HCPCS: 71045; 87635; 87804; 99284

== ENCOUNTER 2024-07-28 11:28 | Emergency (ER) | payer SELFPAY ==
[2024-07-28 11:46] VITALS: BP 115/65; PULSE 67; RESP 20; TEMP 36.6; O2SAT 98
--- NOTE | 2024-07-28 11:50 | ED_ITS ---
HPI - Dental/Oral 2 General: Chief complaint: Dental/Oral Stated complaint: mouth pain Time Seen by Provider: 07/28/24 11:40 Source: patient Mode of arrival: ambulatory Limitations: no limitations History of Present Illness: Patient is a 39-year-old male who presents to ED today with complaint of dental pain. He states he has a longstanding history of dental issues and poor dental care. Dates he cannot afford a dentist. Patient feels like he might be developing an infection to his left lower teeth. He has not noticed any facial or neck swelling. He is eating and drinking normally. No difficulty swallowing, breathing or speaking. Teeth map: 1. significant decay Duration: constant Severity: moderate Relieving factors: nothing Exacerbating factors: nothing Context: poor dental care Associated symptoms: Reports no associated symptoms; Denies fever(s) or odynophagia Treatment prior to arrival: none Related Data Previous Rx's Medication Instructions Recorded cyclobenzaprine 10 mg tablet 10 mg PO TID PRN muscle spasm #15 09/06/20 tabs ibuprofen 800 mg tablet (IBU) 800 mg PO TID PRN pain #30 tabs 09/06/20 lidocaine HCl 2 % mucosal solution 15 ml mucous membrane QID #100 mL 05/29/22 (Lidocaine Viscous) diclofenac sodium 75 mg 75 mg PO Q12H PRN pain #20 tabs 10/09/22 tablet,delayed release chlorhexidine gluconate 0.12 % 15 ml buccal BID #473 mL 07/28/24 mouthwash (Peridex) clindamycin HCl 300 mg capsule 300 mg PO Q6H 7 days #28 caps 07/28/24 Allergies Allergy/AdvReac Type Severity Reaction Status Date / Time Penicillins Allergy Intermediate ALGY-Hives Verified 02/10/23 21:47 Review of Systems 2 Const: Denies: fever(s), chills, body aches, fatigue or malaise ENMT: Reports: dental pain; Denies: throat pain, uvular edema, enlarged tonsils, odynophagia, swelling of lips/tongue, oral sores or sinus pain Card: Denies: chest pain Resp: Denies: dyspnea GI: Denies: nausea or vomiting Musc: Denies: neck pain Neuro: Denies: headache(s) PFSH ED 2 PFSH: Medical History Hepatitis C No pertinent family history Surgical History History of cholecystectomy History of appendectomy History of tonsillectomy No pertinent past surgical history Family History Other Diabetes Hypertension Social History Smoking and tobacco/nicotine status: current every day tobacco/nicotine user (.5 half a pack a day for 20 yrs) cigarettes Packs smoked per day: 0.5 Years cigarettes smoked: 20 Physical Exam 2 Const: COMMON NORMALS: no acute distress, patient oriented x3, no limitations, alert and well nourished GENERAL APPEARANCE: cooperative HENMT: FACE & SINUS: normal facial exam; no sinus tenderness and no edema MOUTH: Normal oral and palatal mucosa present and lip normal TEETH & GINGIVA: Yes caries, Yes poor dentition and Yes other (significant widespread dental disease; no drainable abscess) T HROAT: posterior oropharynx normal and tonsils normal; no uvular edema Neck/C-Spine: COMMON NORMALS: no lymphadenopathy GENERAL: No anterior neck swelling and No submandibular swelling Neuro: COMMON NORMALS: patient oriented x3 SENSORIUM/ORIENTATION: Yes alert Course 2 Vital Signs: Vital signs: Vital Signs Temperature 97.8 F 07/28/24 11:46 Pulse Rate 67 07/28/24 11:46 Respiratory Rate 20 H 07/28/24 11:46 Blood Pressure 115/65 07/28/24 11:46 Pulse Oximetry 98 07/28/24 11:46 Oxygen Delivery Me thod Room Air 07/28/24 11:46 MDM - Dental/Oral Medical Decision Making Patient will be placed on antibiotics and given Peridex mouth rinse. Was given dental follow-up resources. Recommend follow-up with a dentist to soon as possible. Return ED precautions given. Medical Records I reviewed the patient's medical records. No radiology studies performed this visit Discharge Plan Discharge Patient Disposition: Home Clinical Impression: Toothache, Dental caries Condition: Stable Prescriptions: New clindamycin HCl 300 mg capsule 300 mg PO Q6H 7 Days Qty: 28 0RF chlorhexidine gluconate [Peridex] 0.12 % mouthwash 15 ml BUCCAL BID Qty: 473 0RF Rx Instructions: Swish in mouth for 1-2 mins then spit. Can use BID. No Action cyclobenzaprine 10 mg tablet 10 mg PO TID PRN (Reason: muscle spasm) Qty: 15 0RF IBU 800 mg tablet 800 mg PO TID PRN (Reason: pain) Qty: 30 0RF Rx Instructions: take 1 PO TID PRN pain - take with food to avoid stomach upset Lidocaine Viscous 2 % solution 15 ml MUCOUS MEM QID Qty: 100 0RF Rx Instructions: Mix with water and gargle for 30-60 seconds, then spit diclofenac sodium 75 mg tablet,delayed release (DR/EC) 75 mg PO Q12H PRN (Reason: pain) Qty: 20 0RF Discharge Orders: Discharge ED (Routine); Ordered 07/28/24 Ordered By: Odalis Carcamo Patient Instructions: Toothache (ED), Mouth Care (ED), Dental Abscess Coding Level of Care Code ED Wireline Operator for Maria L Bradshaw
[2024-07-28 12:08] VITALS: BP 109/68; PULSE 64; RESP 16; O2SAT 95
== END 2024-07-28 12:09 | disposition home or self-care (01) ==
PROVIDERS: Emergency Provider Physician Assistant
DX: K08.89 Other specified disorders of teeth and supporting structures (principal); K02.9 Dental caries, unspecified; F17.210 Nicotine dependence, cigarettes, uncomplicated; Z86.19 Personal history of other infectious and parasitic diseases
CPT/HCPCS: 99283

== ENCOUNTER 2025-05-05 14:20 | Emergency (ER) | payer MEDICAID, SELFPAY ==
--- OUTSIDE RECORDS SUMMARY | 2019-04-30 07:49 | XMS_ITS | Continuity of Care Document ---
Author Organization [facility] Address [id number] [address] Phone Care Team Providers Care Police Commissioner Name Role Phone Coordinator, Care Unavailable Unavailable Allergies, Adverse Reactions, Alerts Substance Reaction Status Criticality hydrocodone Active No Information PENICILLIN Active No Information Medications Medication Instructions Dosage Effective Dates (start - stop) Status Comments Keflex 500 mg capsule take 1 capsule by oral route every 6 hours - Active [place] 5 mg-325 mg tablet take 1 tablet [...] Diagnoses Date Provider Providers Copied on Encounter [facility], [id number]- [place], [place], [address], [place] tel:[phone] [facility] No Information Coordinator Care. [address], [place], [address], [place]. tel:[phone] [facility], [id number]- [place], [place], [address], [place] tel:[phone] [facility] Encounter for dental exam and cleaning w/o abnormal findings 9 Leia Hall. [address], [place], [address], [place]. tel:[phone] Referring Provider: Rafael Dupree, [address] [place], [address]. tel:[phone] [facility], [id number]- [place], [address], [place] tel:[phone] [facility] Encounter for dental exam and cleaning w/o abnormal findings 6 Severino Katz. [address] [place], [address], [place]. tel:[phone] Referring Provider: Sterling Fine, [address] [place], [address]. tel:[phone] [facility], [id number]- [facility], [facility], [place], [id number], [place] tel:[phone] [facility] Encounter for dental exam and cleaning w/o abnormal findings 2201 6 Bobby Garibay. [address] [place], [address], [place]. tel:[phone] Referring Provider: Phoenix Bustamante, [address] [place], [address]. tel:[phone] Family History Family Member Type Diagnosis Age At Onset Mother Problem (finding) Father Problem (finding) Payers Payer name Insurance type Covered libertarian ID Authoriza tion(s) No Information Social History [...]
[2025-05-05 14:22] VITALS: BP 95/52; PULSE 50; TEMP 36.4; O2SAT 100
[2025-05-05 14:45] LABS: Glucose Urine UA Negative (Normal); Nitrate Urine Negative (Negative); Specific Gravity, Urine 1.022 (1.005-1.030)
[2025-05-05 14:49] LABS: Add Urine Microscopic? YES
--- NOTE | 2025-05-05 14:54 | ED_ITS ---
HPI - Male Genitourinary General: Chief complaint: Urogenital-Male Stated complaint: trouble urinating Time Seen by Provider: 05/05/25 14:37 Source: patient Mode of arrival: ambulatory Limitations: no limitations History of Present Illness: Patient is a 40-year-old male that presents to the emergency department with urinary frequency that began yesterday. He states he has had some intermittent burning with urination as well. He states he stopped drinking soda and started drinking plain water. He denies any flank pain. He does have a history of kidney stones. He denies any abdominal pain. He denies any known exposure to sexually transmitted infections and states he and his are faithful to each other and he is not concerned about that. He presents to the emergency department for further evaluation and treatment. Associated symptoms: Reports dysuria (Mild burning with urination); Deny hematuria, nausea, urinary incontinence or vomiting Related Data Previous Rx's ?Medication ?Instructions ?Recorded cyclobenzaprine 10 mg tablet 10 mg PO TID PRN muscle s pasm #15 09/06/20 tabs ibuprofen 800 mg tablet (IBU) 800 mg PO TID PRN pain # 30 tabs 09/06/20 lidocaine HCl 2 % mucosal solution 15 ml mucous membra ne QID #100 mL 05/29/22 (Lidocaine Viscous) diclofenac sodium 75 mg 75 mg PO Q12H PRN pain #20 t abs 10/09/22 tablet,delayed release chlorhexidine gluconate 0.12 % 15 ml buccal BID #473 m L 07/28/24 mouthwash (Peridex) phenazopyridine 100 mg tablet 100 - 200 mg (1 - 2 x 10 0 mg) PO 05/05/25 (Pyridium) Q8H 6 doses #12 tabs Allergies Allergy/AdvReac Type Severity Reaction Status Date / Time Penicillins Allergy Intermediate ALGY-Hives Verified 05/05/25 14:28 Review of Systems General: Reports: 10 or more systems reviewed and unremarkable except in HPI and below Const: Denies: fever(s) or chills Eyes: Denies: eye redness ENMT: Denies: throat pain or swelling of lips/tongue Card: Denies: chest pain, palpitations, irregular heart rhythm or edema Resp: Denies: dyspnea, productive cough, non-productive cough or wheezing GI: Denies: abdominal pain, nausea or vomiting : Reports: dysuria (Mild burning with urination) and urinary frequency; Denies: urinary incontinence, hematuria, penile discharge, testicular pain or scrotal swelling Musc: Reports: neck pain; Denies: back pain Skin/Breast: Denies: rash, pruritus or erythema Neuro: Denies: headache(s) Psych: Denies: anxiety Endo: Denies: polyuria, polydipsia or tired all the time Rogerio/Lymph: Denies: easy bruising or petechiae All/Imm: Denies: urticaria, throat swelling or tongue swelling PFSH ED PFSH: Medical History Hepatitis C No pertinent family history Surgical History History of cholecystectomy History of appendectomy History of tonsillectomy No pertinent past surgical history Family History Other Diabetes Hypertension Social History Smoking and tobacco/nicotine status: current every day tobacco/nicotine user (.5 half a pack a day for 20 yrs) cigarettes Packs smoked per day: 0.5 Years cigarettes smoked: 20 Physical Exam Const: COMMON NORMALS: no acute distress and alert GENERAL APPEARANCE: cooperative ORIENTATION/CONSCIOUSNESS: Yes awake HENMT: COMMON NORMALS: normocephalic, atraumatic and Normal external nose present HEAD & SCALP: normocephalic and atraumatic NOSE: Normal external nose present MOUTH: Normal oral and palatal mucosa present Eye: COMMON NORMALS: conjunctivae normal CONJUNCTIVA: Yes conjunctivae normal Neck/C-Spine: COMMON NORMALS: full ROM CERVICAL SPINE: Yes cervical ROM normal Resp: COMMON NORMALS: clear to auscultation bilaterally EFFORT & INSPECTION: Yes able to speak in complete sentences AUSCULTATION: clear to auscultation bilaterally, no crackles, no rales, no rhonchi and no wheezes Cardio: COMMON NORMALS: regular rhythm RATE: bradycardic RHYTHM: regular rhythm GI: COMMON NORMALS: Soft to palpation and non-tender PALPATION: Yes Soft to palpation RECTAL EXAM: Yes deferred : COMMON NORMALS: Yes no CVA tenderness BLADDER/KIDNEY EXAM: Yes no CVA tenderness Back/Pelvis: COMMON NORMALS: no CVA tenderness Extremity: COMMON NORMALS: full ROM, no calf tenderness and no pedal edema Neuro: SENSORIUM/ORIENTATION: Yes alert Psych: COMMON NORMALS: mental status grossly normal, cooperative and speech normal SPEECH: Yes normal speech Skin: COMMON NORMALS: no rashes or lesions noted GENERAL SKIN EXAM: no rashes or lesions noted Course Vital Signs: Vital signs: Vital Signs Temperature 97.6 F 05/05/25 14:22 Pulse Rate 51 L 05/05/25 15:14 Blood Pressure 95/52 05/05/25 14:22 Pulse Oximetry 99 05/05/25 15:14 Oxygen Delivery Me thod Room Air 05/05/25 14:22 [facility] - Male Medical Decision Making Patient was advised of the exam and lab findings. Thankfully the patient does not appear to have signs of urinary tract infection or kidney stone.. He does not have any blood in the urine. Patient denies any known exposure to sexually transmitted infection and states his symptoms are doing better today than they were yesterday after increasing clear fluids. He declines STD testing. He was advised to follow-up with local doctor for further evaluation and treatment. The patient was advised to rest, increase fluids, avoid caffeinated drinks and return to the emergency department with any worsening symptoms. The patient expressed understanding. Medical Records I reviewed the patient's medical records. Lab Data I reviewed the patient's lab results. Laboratory Results Urine Color Yellow (Yellow) 05/05/25 14:30 Urine Appearance Clear (CLEAR) 05/05/25 14:30 Urine pH 7.5 (5-7) 05/05/25 14:30 Ur Specific Barre 1.022 (1.005-1.030) 05/05/25 14:30 Urine Protein Negative (Negative) 05/05/25 14:30 Urine Glucose (UA) Negative (Normal) 05/05/25 14:30 Urine Ketones Negative (Negative) 05/05/25 14:30 Urine Blood Negative (Negative) 05/05/25 14:30 Urine Nitrate Negative (Negative) 05/05/25 14:30 Urine Bilirubin Negative (Negative) 05/05/25 14:30 Urine Urobilinogen 1.0 mg/dL (Negative) 05/05/25 14:30 Ur Leukocyte Esterase Negative (Negative) 05/05/25 14:30 Urine RBC 0-2 /hpf (0-2) 05/05/25 14:30 Urine WBC 0-5 /hpf (0-5) 05/05/25 14:30 Ur Squamous Epith Cells 0-5 /hpf (0-5) 05/05/25 14:30 Amorphous Sediment Not Reportable 05/05/25 14:30 Urine Bacteria None seen /hpf (NONE) 05/05/25 14:30 Hyaline Casts 0-4 /lpf H 05/05/25 14:30 No radiology studies performed this visit Critical Care Time Critical Care Time: Critical Care Time: No Discharge Plan Discharge Patient Disposition: Home Clinical Impression: Increased urinary frequency, Dysuria Condition: Stable Prescriptions: New phenazopyridine [Pyridium] 100 mg tablet 100 - 200 mg PO Q8H Qty: 12 0RF No Action cyclobenzaprine 10 mg tablet 10 mg PO TID PRN (Reason: muscle spasm) Qty: 15 0RF IBU 800 mg tablet 800 mg PO TID PRN (Reason: pain) Qty: 30 0RF Rx Instructions: take 1 PO TID PRN pain - take with food to avoid stomach upset Lidocaine Viscous 2 % solution 15 ml MUCOUS MEM QID Qty: 100 0RF Rx Instructions: Mix with water and gargle for 30-60 seconds, then spit diclofenac sodium 75 mg tablet,delayed release (DR/EC) 75 mg PO Q12H PRN (Reason: pain) Qty: 20 0RF chlorhexidine gluconate [Peridex] 0.12 % mouthwash 15 ml BUCCAL BID Qty: 473 0RF Rx Instructions: Swish in mouth for 1-2 mins then spit. Can use BID. Discharge Orders: Discharge ED (Routine); Ordered 05/05/25 Ordered By: Tao Romero Discharge Diet: Usual diet Discharge Activity: Resume usual activity Patient Instructions: Dysuria - Male, Opioid Safety, Pain Management, Patient Portal & Brenda Instructions Activity Restrictions/Additional Instructions: Take medications as directed. This medication will turn your urine orange and so be aware of that side effect. Your prescription was sent electronically to the [facility] pharmacy in [place]. Rest, increase clear fluids. Avoid caffeinated drinks. Follow-up with a local doctor over the next week or 2 for recheck. Return to the emergency department with any worsening symptoms such as increased pain, fever, blood in your urine or any other worsening symptoms. Print Language: French Coding Level of Care Code ED Cripple Worker for Maria L Bradshaw
[2025-05-05 15:14] VITALS: PULSE 51; O2SAT 99
== END 2025-05-05 15:17 | disposition home or self-care (01) ==
PROVIDERS: Emergency Provider Physician Assistant
DX: R35.0 Frequency of micturition (principal); R30.0 Dysuria; F17.210 Nicotine dependence, cigarettes, uncomplicated
CPT/HCPCS: 81001; 99283

== ENCOUNTER 2025-05-17 09:04 | Emergency (ER) | payer MEDICAID, SELFPAY ==
--- OUTSIDE RECORDS SUMMARY | 2019-04-30 07:49 | XMS_ITS | Continuity of Care Document ---
Author Organization [facility] Address [id number] [address] Phone Care Team Providers Care Battery Technician Name Role Phone Coordinator, Care Unavailable Unavailable Allergies, Adverse Reactions, Alerts Substance Reaction Status Criticality hydrocodone Active No Information PENICILLIN Active No Information Medications Medication Instructions Dosage Effective Dates (start - stop) Status Comments Keflex 500 mg capsule take 1 capsule by oral route every 6 hours - Active [place] 5 mg-325 mg tablet take 1 tablet by oral route every 6 hours as needed for pain - Active clindamycin 150 mg capsule take 2 capsule by oral route every 6 hours for dental infection 300 MG - No Longer Active Ultram 50 mg tablet take 1 tablet by oral route every 6 hours as needed for post op pain - No Longer Active Procedures Procedure Date Limited Oral Evaluation Problem Focused Intraoral Periapical First Film Intraoral Periapical Each Additional Film Intraoral Periapical Each Additional Film Extraction, Erupted Tooth Or Exposed Piper t (Elevati Extraction, Erupted Tooth Or Exposed Piper t (Elevati Extraction, Erupted Tooth Or Exposed Piper t (Elevati Extraction, Erupted Tooth Or Exposed Piper t (Elevati Extraction, Erupted Tooth Or Exposed Piper t (Elevati Limited oral eval, x-ray & 1st extractio n Urgent Each Additional Extraction Urgent Each Additional Extraction Urgent Each Additional Extraction Urgent Each Additional Extraction EDR Approval Note Post Op No Charge EDR Approval Note EDR Approval Note EDR Approval Note Limited Oral Evaluation Problem Focused Intraoral Periapical First Film Extraction, Erupted Tooth Or Exposed Piper t (Elevati EDR Approval Note Limited oral eval, x-ray & 1st extractio n Slide 1 Advance Directives Directive Yes / No Effective Date File Name No Information Encounters Encounter Description Practice Location Reason(s) For Visit Diagnoses Date Provider Providers Copied on Encounter [facility], [id number]- [place], [place], [id number], [place] tel:[phone] [facility] No Information Coordinator Care. [address], [place], [address], [place]. tel:[phone] [facility], [id number]- [place], [place], [address], [place] tel:[phone] [facility] Encounter for dental exam and cleaning w/o abnormal findings 9 Leia Hall. [address], [place], [address], [place]. tel:[phone] Referring Provider: Rafael Dupree, [address] [place], [address]. tel:[phone] [facility], [id number]- [place], [id number], [place] tel:[phone] [facility] Encounter for dental exam and cleaning w/o abnormal findings 6 Severino Katz. [address] [place], [address], [place]. tel:[phone] Referring Provider: Sterling Fine, [address] [place], [address]. tel:[phone] [facility], [id number]- [facility], [facility], [place], [id number], [place] tel:[phone] [facility] Encounter for dental exam and cleaning w/o abnormal findings [phone] Bobby Garibay. [address] [place], [address], [place]. tel:[phone] Referring Provider: Phoenix Bustamante, [address] [place], [address]. tel:[phone] Family History Family Member Type Diagnosis Age At Onset Mother Problem (finding) Father Problem (finding) Payers Payer name Insurance type Covered democrat ID Authoriza tion(s) No Information Social History Type Description Quantity Date Captured Comments Alcohol Use Details Unknown Caffeine Use Details Unknown Tobacco Use Status No Information Smoking Status No Information Sex Male Gender Identity Male Chief Complaint And Reason For Visit No Information Reason For Referral Reason For Referral No Information Plan Of Treatment Date Type Action Status Goal Tobacco cessation counseling completed Goal Tobacco cessation counseling completed Goal Tobacco cessation counseling completed History Of Present Illness Encounter Date Complaint History Of Prese nt Illness No Information Functional Status Date Functional Assessmen t No Information Instructions Date Instruction Additional Infor tristanion Lifestyle education Related to D ental Examination Lifestyle education Related to D ental Examination Lifestyle education Related to D ental Examination Assessments Type Assessment Date No Information Patient Care Teams Name Effective Dates (start - stop) Status Members No Information
[2025-05-17] VITALS (8 sets, daily range): BP systolic 103–125; BP diastolic 58–79; PULSE 51–67; RESP 16–18; TEMP 37; O2SAT 92–99; BMI 20.9
--- NOTE | 2025-05-17 09:14 | XR_ITS ---
WS: [id number] XR chest 1V portable [id number] REASON FOR EXAM: dyspnea/cough FINDINGS: Chest is unchanged compared to 09/25/2023. The heart and mediastinum are within normal limits. Calcified granulomatous disease bilaterally. No acute pulmonary parenchymal or pleural abnormality is identified. Bony thorax is intact without significant abnormality. XR/XR chest 1V portable [id number] IMPRESSION: Stable chest without acute abnormality.
--- NOTE | 2025-05-17 09:27 | W.ED.GENADLT ---
HPI - General Adult General: Chief complaint: Nausea/Vomiting/Diarrhea Stated complaint: n,v,fever Time Seen by Provider: 05/17/25 09:05 History of Present Illness: 40-year-old male presents emergency room planing nausea vomiting and fever. He denies any hematochezia melena hematemesis or coffee-ground emesis. He does states had some dysuria and frequency. No hematuria. Family member was recently noted to have COVID. He does have a slight cough as well Associated symptoms: Reports nausea and vomiting; Deny chest pain, dyspnea or rash Related Data Previous Rx's ?Medication ?Instructions ?Recorded promethazine 25 mg tablet 25 mg PO Q6H PRN nausea and 05/17/25 vomiting #20 tabs Allergies Allergy/AdvReac Type Severity Reaction Status Date / Time Penicillins Allergy Intermediate ALGY-Hives Verified 05/05/25 14:28 Review of Systems Const: Denies: fever(s) or chills Card: Denies: chest pain Resp: Reports: non-productive cough, wheezing and chest congestion; Denies: dyspnea GI: Reports: nausea and vomiting; Denies: abdominal pain or diarrhea : Denies: dysuria, urinary frequency or urinary urgency Musc: Denies: neck pain or back pain Skin/Breast: Denies: rash PFSH ED PFSH: Medical History Hepatitis C No pertinent family history Surgical History History of cholecystectomy History of appendectomy History of tonsillectomy Family History Other Diabetes Hypertension Social History Smoking and tobacco/nicotine status: current every day tobacco/nicotine user (.5 half a pack a day for 20 yrs) cigarettes Packs smoked per day: 0.5 Years cigarettes smoked: 20 Physical Exam Const: GENERAL APPEARANCE: cooperative ORIENTATION/CONSCIOUSNESS: Yes awake, Yes oriented to person, Yes oriented to place and Yes oriented to time HENMT: COMMON NORMALS: normocephalic, atraumatic and hearing grossly normal bilaterally HEAD & SCALP: normocephalic and atraumatic Resp: COMMON NORMALS: normal respiratory effort, No retractions, No use of accessory muscles and clear to auscultation bilaterally AUSCULTATION: clear to auscultation bilaterally Cardio: COMMON NORMALS: regular rate, regular rhythm and No murmurs present (Cardio) RATE: regular rate RHYTHM: regular rhythm GI: COMMON NORMALS: Soft to palpation and No hepatosplenomegaly present AUSCULTATION: Yes normoactive bowel sounds PALPATION: Yes Soft to palpation, No Tenderness to palpation present (GI), No Guarding due to palpation present (GI) and Yes No hepatosplenomegaly present Extremity: COMMON NORMALS: normal to inspection, capillary refill normal, no clubbing, cyanosis or edema, no calf tenderness and no pedal edema Neuro: SENSORIUM/ORIENTATION: Yes oriented to person, Yes oriented to place and Yes oriented to time Skin: COMMON NORMALS: no rashes or lesions noted GENERAL SKIN EXAM: no rashes or lesions noted Course Vital Signs: Vital signs: Vital Signs Temperature 98.6 F 05/17/25 09:26 Pulse Rate 60 05/17/25 14:00 Respiratory Rate 18 05/17/25 10:44 Blood Pressure 116/68 05/17/25 14:00 Pulse Oximetry 95 05/17/25 14:00 Oxygen Delivery Me thod Room Air 05/17/25 12:05 [facility] - General Adult Medical Decision Making Laboratory test unremarkable COVID did later come back positive after the patient left we contacted and reported the results to him. IV fluids she did feel somewhat better discharged home. There was fluid in the CT of the abdomen suspect this is ascites from his hepatitis reviewed and discussed with Dr. Jacobs who read the fellow. He has no signs of acute cholecystitis at this time. Discharge home clear liquid diet advance as tolerated recheck if not improving or worsens Medical Records I reviewed the patient's medical records. Lab Data I reviewed the patient's lab results. 05/17/25 09:36 05/17/25 09:36 Radiology Impressions Chest X-Ray 05/17/25 09:14 IMPRESSION: Stable chest without acute abnormality. Abdomen/Pelvis CT 05/17/25 11:33 IMPRESSION: 1. No renal obstruction or perinephric stranding. 2. Variable attenuation and enhancement of each kidney. This is probably related to the poor IV contrast bolus and timing of the bolus. Early changes of pyelonephritis may appear similar. 3. Small amount of free fluid in the pelvis. Abnormal in a male patient. Fluid is indicating there is an acute inflammatory process. 4. Prior appendectomy. 5. Sigmoid diverticulosis without acute diverticulitis. Laboratory Results WBC 3.97 10^3/uL (3.29-11.43) 05/17/25 09:36 RBC 4.42 10^6/uL (3.85-5.65) 05/17/25 09:36 Hgb 13.80 g/dL (11.27-16.99) 05/17/25 09:36 Hct 40.5 % (37-53) 05/17/25 09:36 MCV 91.6 fl (82-101) 05/17/25 09:36 MCH 31.2 pg (27-33) 05/17/25 09:36 MCHC 34.1 g/dL (30-55) 05/17/25 09:36 RDW 11.9 % (12.1-15.1) L 05/17/25 09:36 Plt Count 160 10^3/cmm (157-399) 05/17/25 09:36 MPV 10.7 fL (7.4-10.4) H 05/17/25 09:36 Neut % (Auto) 76.1 % 05/17/25 09:36 Lymph % (Auto) 9.8 % 05/17/25 09:36 [place] % (Auto) 12.3 % 05/17/25 09:36 Eos % (Auto) 1.3 % 05/17/25 09:36 Baso % (Auto) 0.5 % 05/17/25 09:36 Neut # (Auto) 3.02 10^3/uL (1.8-7.7) 05/17/25 09:36 Lymph # (Auto) 0.4 10^3/uL (0.8-4.8) L 05/17/25 09:36 [place] # (Auto) 0.5 10^3/uL (0.2-0.9) 05/17/25 09:36 Eos # (Auto) 0.1 10^3/uL (0.0-0.8) 05/17/25 09:36 Baso # (Auto) 0.0 10^3/uL (0.0-0.1) 05/17/25 09:36 Nucleated RBC % (auto) 0 % 05/17/25 09:36 Nucleated RBCs # 0.0 /100WBC 05/17/25 09:36 Sodium 140 mmol/L (136-145) 05/17/25 09:36 Potassium 3.8 mmol/L (3.5-5.1) 05/17/25 09:36 Chloride 101 mmol/L (98-107) 05/17/25 09:36 Carbon Dioxide 29 mmol/L (22-29) 05/17/25 09:36 Anion Gap 13.8 (5-19) 05/17/25 09:36 BUN 14 mg/dL (6-20) 05/17/25 09:36 Creatinine 1.0 mg/dL (0.7-1.2) 05/17/25 09:36 GFR Calculation 83.6 mL/min (90-130) L 05/17/25 09:36 Glucose 121 mg/dL (65-115) H 05/17/25 09:36 Calculated Osmolality 292 mOsm/kg (285-295) 05/17/25 09:36 Calcium 9.7 mg/dL (8.5-10.5) 05/17/25 09:36 Total Bilirubin 0.8 mg/dL (0.15-1.2) 05/17/25 09:36 AST 373 U/L (0-40) H 05/17/25 09:36 ALT 313 U/L (0-41) H 05/17/25 09:36 Alkaline Phosphatase 221 U/L (40-130) H 05/17/25 09:36 Total Protein 7.2 g/dL (6.6-8.7) 05/17/25 09:36 Albumin 4.4 g/dL (3.5-5.2) 05/17/25 09:36 Globulin 2.8 g/dL (1.3-4.6) 05/17/25 09:36 Lipase 20 U/L (13-60) 05/17/25 09:36 Urine Color Yellow (Yellow) 05/17/25 09:56 Urine Appearance Clear (CLEAR) 05/17/25 09:56 Urine pH 8.0 (5-7) A 05/17/25 09:56 Ur Specific Arnold 1.018 (1.005-1.030) 05/17/25 09:56 Urine Protein Negative (Negative) 05/17/25 09:56 Urine Glucose (UA) Negative (Normal) 05/17/25 09:56 Urine Ketones 1+ (Negative) H 05/17/25 09:56 Urine Blood Negative (Negative) 05/17/25 09:56 Urine Nitrate Negative (Negative) 05/17/25 09:56 Urine Bilirubin Negative (Negative) 05/17/25 09:56 Urine Urobilinogen 1.0 mg/dL (Negative) 05/17/25 09:56 Ur Leukocyte Esterase Negative (Negative) 05/17/25 09:56 Urine RBC 0-2 /hpf (0-2) 05/17/25 09:56 Urine WBC 0-5 /hpf (0-5) 05/17/25 09:56 Ur Squamous Epith Cells 0-5 /hpf (0-5) 05/17/25 09:56 Amorphous Sediment Not Reportable 05/17/25 09:56 Urine Bacteria None seen /hpf (NONE) 05/17/25 09:56 Hyaline Casts 0-4 /lpf H 05/17/25 09:56 Influenza A (PCR) Negative (Negative) 05/17/25 13:06 Influenza Type B (PCR) Negative (Negative) 05/17/25 13:06 RSV (PCR) Negative (Negative) 05/17/25 13:06 SARS-CoV-2 (PCR) Positive (Negative) A 05/17/25 13:06 All radiology interpretation(s) finalized by discharge Discharge Plan Discharge Patient Disposition: Home Clinical Impression: Gastroenteritis, Hepatitis C, Ascites Condition: Stable Prescriptions: New promethazine 25 mg tablet 25 mg PO Q6H PRN (Reason: nausea and vomiting) Qty: 20 0RF Discharge Orders: Discharge ED (Routine); Ordered 05/17/25 Ordered By: Micky Lindquist Discharge Diet: Clear Liquid Discharge Activity: Resume usual activity Patient Instructions: Opioid Safety, Pain Management, Patient Portal & Brenda Instructions Activity Restrictions/Additional Instructions: Thank you for choosing [facility] for your healthcare needs today. It is very important that you follow up as instructed or that you return to the Emergency Department should you have concerns or if your condition changes or worsens in any way. You are seen in the emergency room complaint of abdominal pain your CT was unremarkable there was some fluid in your abdomen suspect this is due to your history of hepatitis C. Your lipase and liver enzymes were elevated. Recommend clear liquid diet for next 24 to 48 hours and advance as tolerated use antiemetics that were prescribed as needed Print Language: Djiboutian Coding Level of Care Code ED Tandem Operator for Maria L Bradshaw
[2025-05-17 09:44] LABS: Hematocrit 40.5 % (37-53); Hemoglobin 13.80 g/dL (11.27-16.99); Mean Corpuscular HGB Conc 34.1 g/dL (30-55); Mean Corpuscular Hemoglobin 31.2 pg (27-33); Mean Corpuscular Volume 91.6 fl (82-101); Nucleated Red Blood Cells % 0 %; Platelet Count 160 10^3/cmm (157-399); Red Blood Count 4.42 10^6/uL (3.85-5.65); White Blood Count 3.97 10^3/uL (3.29-11.43)
[2025-05-17] MEDS: ondansetron 2 mg/ML SDV 2 mL 4 MG IVP (09:50)
[2025-05-17 10:00] LABS: Alanine Aminotransferase 313 U/L (0-41); Albumin Level 4.4 g/dL (3.5-5.2); Alkaline Phosphatase 221 U/L (40-130); Anion Gap 13.8 (5-19); Aspartate Amino Transferase 373 U/L (0-40); Blood Urea Nitrogen 14 mg/dL (6-20); Calcium 9.7 mg/dL (8.5-10.5); Carbon Dioxide 29 mmol/L (22-29); Chloride 101 mmol/L (98-107); Creatinine Clr Calc Pharmacy 105.8006; Globulin 2.8 g/dL (1.3-4.6); Glucose 121 mg/dL (65-115); Osmolality Calculated 292 mOsm/kg (285-295); Potassium 3.8 mmol/L (3.5-5.1); Sodium 140 mmol/L (136-145); Total Protein 7.2 g/dL (6.6-8.7)
[2025-05-17 10:26] LABS: Glucose Urine UA Negative (Normal); Nitrate Urine Negative (Negative); Specific Gravity, Urine 1.018 (1.005-1.030)
[2025-05-17 10:32] LABS: Add Urine Microscopic? YES
--- NOTE | 2025-05-17 11:33 | CT_ITS ---
WS: [id number] CT ABDOMEN AND PELVIS WITH CONTRAST HISTORY: Left-sided abdominal pain with nausea and vomiting. Fever. TECHNIQUE: Imaging performed of the abdomen and pelvis with IV contrast. Single phase imaging of the abdomen. Coronal and sagittal reformats are submitted. All CT scans at [facility] use at least one of these dose optimization techniques: automated exposure control; mA and/or kV adjustment per patient size (includes targeted exams where dose is matched to clinical indication); or iterative reconstruction. IV CONTRAST: Omnipaque 350; 100 mL IV. Oral contrast: No DLP: 333.93 mGy.cm COMPARISON: 10/08/2013 Lower thorax: Severe emphysema. Breathing motion artifact at the lung bases. Heart is normal size. No hiatal hernia. Liver/biliary system: Normal size with no intrahepatic dilatation. Gallbladder: Cholecystectomy. Pancreas: Mild pancreatic atrophy. Poorly visualized pancreas due to motion. Spleen: Normal size spleen. No mass or infarct. Adrenal glands: Normal. Right kidney: Normal size kidney. No obstruction. Variable attenuation and enhancement of the kidneys probably due to the poor injection RIGHT and limited contrast. No perinephric stranding or obstruction. Left kidney: Normal size kidney. Heterogeneous enhancement is probably due to the poor contrast bolus and limited contrast. No perinephric stranding. There is very slight enhancement of the LEFT extrarenal pelvis suggesting a mild inflammation. Aorta: Normal. Lymphadenopathy: None. Free fluid: Small amount of free fluid in the pelvis. GI tract: No obstruction. Prior appendectomy. Mild sigmoid diverticulosis. Abdominal wall: Unremarkable abdominal wall. No hernia. Pelvis: Small amount of free fluid. Negative urinary bladder. Bones: Unremarkable. CT/CT abdomen pelvis w con* [id number] IMPRESSION: 1. No renal obstruction or perinephric stranding. 2. Variable attenuation and enhancement of each kidney. This is probably relat ed to the poor IV contrast bolus and timing of the bolus. Early changes of pyel onephritis may appear similar. 3. Small amount of free fluid in the pelvis. Abnormal in a male patient. Fluid is indicating there is an acute inflammatory process. 4. Prior appendectomy. 5. Sigmoid diverticulosis without acute diverticulitis.
[2025-05-17] MEDS: iohexol 350 mg/mL 500 mL Btl (per mL) IV (11:41)
--- NOTE | 2025-05-17 12:15 | PC.PHAR ---
Medications listed on pts' profile were all old. Pt states he takes no medications.
--- NOTE | 2025-05-17 12:48 | PC.NURSE ---
called lab about still pending lipase - spoke to praful [id number]
[2025-05-17 13:04] LABS: Lipase 20 U/L (13-60)
[2025-05-17 14:09] LABS: Respiratory Syncytial Virus Ce NEGATIVE (Negative)
[2025-05-17 14:11] LABS: SARS-CoV-2 PCR Positive (Negative)
== END 2025-05-17 14:02 | disposition home or self-care (01) ==
PROVIDERS: Emergency Provider Family Medicine
DX: K52.9 Noninfective gastroenteritis and colitis, unspecified (principal); B19.20 Unspecified viral hepatitis C without hepatic coma; R18.8 Other ascites; Z11.52 Encounter for screening for COVID-19; F17.210 Nicotine dependence, cigarettes, uncomplicated
CPT/HCPCS: 71045; 74177; 80053; 81001; 83690; 85025; 87637; 96361; 96374; 99285; J2405; J7030

== ENCOUNTER 2025-09-08 09:06 | Emergency (ER) | payer MEDICAID, SELFPAY ==
--- OUTSIDE RECORDS SUMMARY | 2025-09-03 11:30 | XMS_ITS | Encounter Summary ---
Author Organization [facility] Address [address] [place] [address] Care Team Providers Care Senior Clinical Project Manager Name Role Phone Unavailable Primary Care Provider Unavailabl e Reason for Visit * Reason Comments Establish Care Chronic prostatitis * Eval and Treat (Routine) - Closed Specialty Diagnoses / Procedures Referred By Freddy ibarra Referred To Contact Urology Diagnoses Chronic prostatitis Elkin Roberts MD [address] [place] [address] Phone: tel: fax: [address] [place] [address] Phone: tel: fax: Referral ID Status Reason Start Date Expiration Date Visits Re quested Visits Authorized [id number] Closed 07/28/2025 08/28/2026 1 1 Encounter Details Date Type Department Care Team ([facility] Contact Info) Description 09/03/2025 11:30 AM SPORTS ADMINISTRATOR Office Visit [facility] Urology [address] [place] [address] Vasquez Garcia MD [address] [facility] [address] [place] [address] Frequency of micturition (Primary Dx) Social History Tobacco Use Types Packs/Day Years Used Date Smoking Tobacco: Every Day Cigarettes Smokeless Tobacco: Former Alcohol Use Standard Drinks/Week Comments No 0 (1 standard drink = 0.6 oz pur e alcohol) Sex and Gender Information Value Date Recorded Sex Assigned at Not on file Legal Sex Male 3:02 AM SPORTS ADMINISTRATOR Gender Identity Not on file Sexual Orientation Not on file documented as of this encounter Progress Notes * Vasquez Garcia MD - 09/03/2025 11:34 AM CST Rinku is a 40-year-old male referred from in [place] for a chief complaint of urinating too often He has had appropriate testing to rule out sexually transmitted disease and UTI and he has had a low normal PSA less than 1 No family history of prostate cancer UA today negative Residual urine 0 Abdomen soft nontender. External genitalia exam unremarkable. He is circumcised. Glans penis and meatus normal. Both testes normal. Rectal exam reveals a small prostate smooth and nontender The computer identified him as having a diagnosis of chronic prostatitis which is not what I think he has and he is not right now. I am going to start out with a simple plan of Ditropan 5 mg twice a day and have him call in a progress report in 2 weeks. If he has not improved then we will get a renal bladder ultrasound done at the hospital there in [place] so he does not have to drive here and contemplate switching him to Flomax A copy of this report should be sent to TS ADMINISTRATOR * Lita Oviedo - 09/03/2025 11:19 AM CST TOBACCO COUNSELING He was counseled to discontinue tobacco/nicotine use. Post Void Residual Date/Time: 09/03/25 11:19 AM Performed by: Lita Oviedo Authorized by: Vasquez Garcia MD Patient tolerance: patient tolerated the procedure well with no immediate complications Comments: Patient's abdomen and suprapubic area palpated to identify the pubic bone. Ultrasound jelly was then applied to the suprapubic area. The suprapubic area was scanned in the usual fashion. The jelly was then cleaned off the patient's suprapubic area. The post void residual was measured to be 1 Ml. TS ADMINISTRATOR documented in this encounter Plan of Treatment Not on file documented as of this encounter Procedures Procedure Name Priority Date/Time Associated Diagnosis Comments POC URINALYSIS DIPSTICK AUTOMATED Routine 09/03/2025 11:27 AM SPORTS ADMINISTRATOR documented in this encounter Results * POC URINALYSIS DIPSTICK AUTOMATED (09/03/2025 11:27 AM SPORTS ADMINISTRATOR) COLOR UA Yellow Pale to Dark Yellow 09/03/2025 11:27 AM SPORTS ADMINISTRATOR [facility] [place] CLARITY UA Clear Clear 09/03/2025 11:27 AM SPORTS ADMINISTRATOR [facility] GLUCOSE UA Negative Negative 09/03/2025 11:27 AM SPORTS ADMINISTRATOR [facility] BILIRUBIN UA Negative Negative 09/03/2025 11:27 AM SPORTS ADMINISTRATOR [facility] UA Negative Negative 09/03/2025 11:27 AM SPORTS ADMINISTRATOR [facility] [place] BLOOD UA Negative Negative 09/03/2025 11:27 AM SPORTS ADMINISTRATOR [facility] PH UA 7.0 5.0 - 8.0 09/03/2025 11:27 AM SPORTS ADMINISTRATOR [facility] PROTEIN UA Negative Negative 09/03/2025 11:27 AM SPORTS ADMINISTRATOR [facility] UROBILINOGEN UA 0.2 <2.0 mg/dL 11:27 AM SPORTS ADMINISTRATOR [facility] NITRITE UA Negative Negative 09/03/2025 11:27 AM SPORTS ADMINISTRATOR [facility] LEUKOCYTE ESTERASE UA Negative Negative 09/03/2025 11:27 AM SPORTS ADMINISTRATOR [facility] SPECIFIC GRAVITY UA POC 1.020 1.000 - 1.030 09/03/2025 11:27 AM SPORTS ADMINISTRATOR [facility] Urine 09/03/2025 11:2 7 AM SPORTS ADMINISTRATOR 09/03/2025 11:29 AM SPORTS ADMINISTRATOR us Vasquez Garcia MD POINT OF CARE TESTING Final Result [facility] CLIA# [id number] [address] [place] [id number] [place] [address] documented in this encounter Visit Diagnoses Diagnosis Frequency of micturition- Primary Urinary frequency documented in this encounter
[2025-09-08 09:14] VITALS: BP 147/80; PULSE 92; TEMP 36.8; O2SAT 98; BMI 17.2
--- OUTSIDE RECORDS SUMMARY | 2025-09-08 09:15 | XMS_ITS | Continuity of Care Document ---
Author Organization JAIR Frazier [facility] Nik Sanabria, [facility] ([facility]) Address [address] [place] [address] Care Team Providers Care Social Insurance Adviser Name Role Phone GEO ROBERTS Primary Care Provider [phone] Assessment Encounter Date Assessment Date Assessment LastModified by Organization Details LastModified Time 06/28/2025 06/28/2025 Reviewed labs with the patient. Patient is testing positive for antibody but there is no active viral replication. The patient has been exposed to hepatitis C but is not actively have chronic infection. It appears that the patient has cleared infection. This was explained to the patient and the patient expressed understanding . [email or web address] Not available 07/04/2025 09:41:48 Plan of Treatment Reminders Order Date Submit Date Provider Last Modified By Organization Details Last Modified Time Details Appointments None recorded. Lab CT + NG + TV, DNA, urine/swab 2024 025 Apsalar [facility], [address] [place] [address], [address], [place], [address], 23:42:16 urinalysis , complete 2024 025 ELLA [facility], [address], [address], [place], [address], 11:05:40 culture, urine 2024 025 Apsalar [facility], [address] [place] [address] 248, [address], [place], [address], 23:42:17 PSA, serum or plasma 2024 025 A[facility]alar [facility], [address], [address] [place], [address], 23:42:16 hepatic function panel, serum 2024 025 ELLA [facility], [address], [address], [place], [address], 10:50:17 Referral None recorded. Procedures None recorded. Surgeries None recorded. Imaging None recorded. Medication Orders None recorded. Patient TargetsNo targets recorded. Patient InstructionsNo instructions recorded. Reason for Referral None Reported. Results Created Date Observation Date Name Description Value Unit Range Abnormal Flag Note LastModifiedBy Organization Detail LastModifiedTime 06/28/2006/28/2025 LIVER PANEL (MALE ) total protein 7.2 g/dL 6.0-8. 5 Not Available [facility] [address], [place], [address], 06/28/2025 10:50:17 06/28/20 25 06/28/2025 LIVER PANEL (MALE ) total bilirubin 0.7 mg/dL 0.2-1. 3 Not Available [facility] [address], [place], [address], 06/28/2025 10:50:17 06/28/20 25 06/28/2025 LIVER PANEL (MALE ) conj. bilirubin (direct) 0.00 mg/dL 0.00-0 .40 Not Available [facility] [address] [facility] [address], [place], [address], 06/28/2025 10:50:17 06/28/20 25 06/28/2025 LIVER PANEL (MALE ) albumin 4.4 g/dL 3.5-5. 5 Not Available [facility] [address] [facility] [address] [address], [place], [address], 06/28/2025 10:50:17 06/28/20 25 06/28/2025 LIVER PANEL (MALE ) AST (SGOT) 38.0 U/L 0.0-46 .0 Not Available [facility] [address] [facility] [address] 1, [place], [address], 06/28/2025 10:50:17 06/28/20 25 06/28/2025 LIVER PANEL (MALE ) altv (SGPT) 41.0 U/L 13.0-6 9.0 normal Not Available [facility] [address] [facility] 1, [place], [address], 06/28/2025 10:50:17 06/28/20 25 06/28/2025 LIVER PANEL (MALE ) ALP phos 104.0 U/L 30.0-1 40.0 normal Not Available [facility] [address] [facility], [place], [address], 06/28/2025 10:50:17 06/28/20 25 06/28/2025 URINA LYSIS WITH MICRO color YELLOW Not Available [facility] [address] [facility], [place], [address], 06/28/2025 11:05:39 06/28/20 25 06/28/2025 URINA LYSIS WITH MICRO clarity CLOUDY Not Available [facility] [address] [facility] 1, [place], [address], 06/28/2025 11:05:39 06/28/20 25 06/28/2025 URINA LYSIS WITH MICRO glu NEGATI VE Not Available [facility] [address] [facility] 1, [place], [address], 06/28/2025 11:05:39 06/28/20 25 06/28/2025 URINA LYSIS WITH MICRO bili NEGATI VE Not Available [facility] [address], [place], [address], 06/28/2025 11:05:39 06/28/20 25 06/28/2025 URINA LYSIS WITH MICRO ket NEGATI VE Not Available [facility] [address], [place], [address], 06/28/2025 11:05:39 06/28/20 25 06/28/2025 URINA LYSIS WITH MICRO S.g 1.015 1.005- 1.025 Not Available [facility] [address], [place], [address], 06/28/2025 11:05:39 06/28/20 25 06/28/2025 URINA LYSIS WITH MICRO pH 7.5 5.0-7. 0 high Not Available [facility] [address] [facility] [address], [place], [address], 06/28/2025 11:05:39 06/28/20 25 06/28/2025 URINA LYSIS WITH MICRO pro NEGATI VE Not Available [facility] [address], [place], [address], 06/28/2025 11:05:39 06/28/20 25 06/28/2025 URINA LYSIS WITH MICRO uro 1.0 E.U./D L Not Available [facility] [address] [facility] [address], [place], [address], 06/28/2025 11:05:39 06/28/20 25 06/28/2025 URINA LYSIS WITH MICRO nit NEGATI VE Not Available [facility] [address], [place], [address], 06/28/2025 11:05:39 06/28/20 25 06/28/2025 URINA LYSIS WITH MICRO blo NEGATI VE Not Available [facility] [address] [facility] [address], [place], [address], 06/28/2025 11:05:39 06/28/20 25 06/28/2025 URINA LYSIS WITH MICRO tino NEGATI VE Not Available [facility] [address], [place], [address], 06/28/2025 11:05:39 06/28/20 25 06/28/2025 URINA LYSIS WITH MICRO WBC 0 Not Available [facility] [address], [place], [address], 06/28/2025 11:05:39 06/28/20 25 06/28/2025 URINA LYSIS WITH MICRO RBC 0 Not Available [facility] [address] [facility] 1, [place], [address], 06/28/2025 11:05:39 06/28/20 25 06/28/2025 URINA LYSIS WITH MICRO epi cells 0 Not Available [facility] [address] [facility] 1, [place], [address], 06/28/2025 11:05:39 06/28/20 25 06/28/2025 URINA LYSIS WITH MICRO bacteria 2+ AMORPH OUS Not Available [facility] [address] [facility] 1, [place], [address], 06/28/2025 11:05:39 06/28/20 25 06/28/2025 URINA LYSIS WITH MICRO other NEGATI VE Not Available [facility] [address] [facility] 1, [place], [address], 06/28/2025 11:05:39 06/28/20 25 06/29/2025 PSA, TOTAL PSA, total 0.27 NG/mL < or = 4.00 normal The total PSA value from this assay lilyari leonel is stand ardiz ed again st the WHO stand marilou. The test resul t will be appro ximat bart 20% lower when kevin red to the equim olar- stand ardiz ed total PSA (Kinney man Coult er). Kevin rison of seria l PSA resul ts shoul d be inter prete d with this fact in mind. This test was perfo rmed using the Sieme ns chemi lumin escen t metho d. Value s obtai kitty from diffe rent assay metho ds canno t be used inter hamilton eably . PSA level s, regar dless of value , shoul d not be inter prete d as absol los coyotes evide nce of the prese nce or absen ce of disea se. Not Available [facility] [address], [address], 06/29/2025 23:42:16 06/28/20 25 06/29/2025 CHLAM YDIA/ N.CLYDE ORRHO EAE AND T. VAGIN FLORENCIO RNA, QL TMA chlamydia trachomatis RNA, tma, urogenital NOT DETECT ED not detect ed normal Not Available [employer] [address], [address], 06/29/2025 23:42:16 06/28/20 25 06/29/2025 CHLAM YDIA/ N.CLYDE ORRHO EAE AND T. VAGIN FLORENCIO RNA, QL TMA neisseria gonorrhoeae RNA, tma, urogenital NOT DETECT ED not detect ed normal Not Available [employer] [address], [address], 06/29/2025 23:42:16 06/28/2006/29/2025 CHLAM YDIA/ N.CLYDE ORRHO EAE AND T. VAGIN FLORENCIO RNA, QL TMA comment The judy tical perfo rmanc e geraldine cteri stics of this assay , when used to test SureP ath(T M) speci mens have been deter mined by [facility]. The modif icati ons have not been clear ed or appro brandon by the FDA. This assay has been valid ated pursu ant to the CLIA regul ation s and is used for clini evelia purpo ses. For addit ional infor morro pedraza e refer to https ://ed ucati on.qu devan mclaughlinPhosphate Therapeutics. com/f aq/FA Q154 (This link is being provi ded for infor tristanio n/ educa jeremy l purpo ses only. ) Not Available [facility] [address] [place], [address], 06/29/2025 23:42:16 06/28/2006/29/2025 CHLAM YDIA/ N.CLYDE ORRHO EAE AND T. VAGIN FLORENCIO RNA, QL TMA trichomonas vaginalis RNA, ql tma NOT DETECT ED not detect ed normal For addit ional infor morro pedraza e refer to http: //[facility] rima napier.que stdia gnost ics.c om/ faq/T maría elena ellington tma (This link is being provi ded for infor tristanio nal/ educa jeremy l purpo ses only. ) Not Available [facility] [address], [address], 06/29/2025 23:42:16 06/28/2006/29/2025 CULTU RE, URINE , ROUTI NE culture, urine, routine SEE NOTE CULTU RE, URINE , ROUTI NE Micro Numbe r: [id number] Test Statu s: Final Speci men Sourc e: Urine , clean catch Speci men Quali ty: Adequ ate Resul t: No Growt h Not Available [facility] [place] [address] [place], [address], 06/29/2025 23:42:17 06/22/2006/21/2025 US, liver No observ ation record ed. [facility] [address] [place], [address], 06/23/2025 16:32:23 Result Notes None recorded. Problems Name Problem SNOMED Code Status Onset Date Resolution Date Notes Provider Name and Address Organization Details Recorded Time Chronic hepatitis C 386087902 Active 2024 Geo Roberts MD [address] [place] [address], [address] [place] [address] 5, [facility] 11:12:41 Gastroesophage al reflux disease without esophagitis 051193200 Active 2024 Geo Roberts MD [address] [place] [address] 5, [facility] 11:13:38 Nocturia 316021342 Active 2024 Geo Roberts MD [address] [place] [address] 5, [facility] 09:34:46 Increased frequency of urination 146688012 Active 2024 Geo Roberts MD [address] [place] [address] 5, [facility] 5 09:34:58 Liver function test above reference range 190319282 Active 2024 Geo Roberts MD [address] [place] [address], [address] [place] [address] 5, [facility] 09:38:57 Chronic prostatitis 60672242 Active 2024 Geo Roberts MD [address] [place] [address], [address] [place] [address] 5, [facility] 11:20:06 Loss of appetite 53161631 Active 2024 Geo Roberts MD [address] [place] [address] 5, [facility] 11:11:12 Problem Notes None recorded. Medical Equipment None Reported. Allergies No known drug allergies Medications Name Sig Start Date Stop Date Status Note LastModified by Organization Details LastModified Time clindamyc in HCl 300 mg capsule TAKE 1 CAPSULE BY MOUTH EVERY 6 HOURS FOR 7 DAYS 05/26 completed Not Available Not Available Not Available omeprazol e 40 mg capsule,d elayed release TAKE 1 CAPSULE BY MOUTH ONCE DAILY active Not Available Not Available No t Available phenazopy ridine 100 mg tablet TAKE 1 TO 2 TABLETS BY MOUTH EVERY 8 HOURS FOR 6 DOSES 05/26 completed Not Available Not Available Not Available pantopraz ole 40 mg tablet,de layed release TAKE 1 TABLET BY MOUTH ONCE DAILY 07/19 completed Not Available Not Available Not Available promethaz ine 25 mg tablet TAKE 1 TABLET BY MOUTH EVERY 6 HOURS NEEDED FOR NAUSEA AND VOMITING 06/28 completed Not Available Not Available Not Available levofloxa magaly 500 mg tablet TAKE 1 TABLET BY MOUTH EVERY 24 HOURS FOR 28 DAYS active Not Available Not Available No t Available Bactrim DS 800 mg-160 mg tablet Take 1 tablet every 12 hours by oral route for 14 days. 07/19 completed Not Available Not Available Not Available chlorhexi dine gluconate 0.12 % mouthwash SWISH 15ML IN MOUTH 1-2 MINUTES TWICE A DAY THEN SPIT 05/26 completed Not Available Not Available Not Available methadone daily active Takes 75mg total daily; 0; Recorded 12/03/19 23 2:05PM by Julissa Dumont, Office Visit; Not Available Not Available Not Available Vitals Date Recorded Body height Body mass index (BMI) Body weight Body temperature Oxygen saturation Heart rate Systolic And Diastolic Provider Name and Address Organization Details Last Updated DateTime 5 182.88 cm 18.7 kg/m2 87685.7 5 g 98.4 [degF] 99 % 56 /min 108/80 mm[Hg] [facility] LRebekahLRebekahCRebekah 09:06:09 Social History Question Answer Notes LastModified by Organizat ion Details LastModified Time Tobacco Smoking Status Current Every Day Smoker vape [facility] 05/26/2025 11:02:26 What Is Your Level Of Caffeine Consumption? Moderate [email or web address] Information not available 07/19/2025 Which Illicit Or Recreational Drugs Have You Used? Marijuana [email or web address] Information not available 05/26/2025 What Type Of Marijuana Have You Used? Smoke [email or web address] Information not available 07/19/2025 Do You Or Have You Ever Used Marijuana? Current Some Days User [email or web address] Information not available 07/19/2025 What Was The Date Of Your Most Recent Tobacco Screening? 06/28/2025 [email or web address] Information not available 06/28/2025 Was Your Marijuana Use Recreational Or Medical? Recreational [email or web address] Information not available 07/19/2025 At What Age Did You Start Smoking Tobacco? 15 [email or web address] Information not available 07/19/2025 Have You Used IV Drugs? Yes [email or web address] Information not available 07/19/2025 Sex: Unknown Functional Status Question Answer Note LastModified by Organizat ion Details LastModified Time Do you use any illicit or recreational drugs? Yes [email or web address] Information not available 05/26/2025 What is your level of alcohol consumption? None [email or web address] Information not available 05/26/2025 Mental Status None recorded. Family History Nothing Reported. Medical History No medical history recorded. Immunizations Vaccine Type Date Status Note Provider Nam e and Address Organization Details Recorded Time DTaP 7 completed Not Available [facility] 07/19/2025 10:39:47 DTaP 7 completed Not Available [facility] 07/19/2025 10:39:47 IPV 7 completed Not Available [facility] 07/19/2025 10:39:47 DTaP 8 completed Not Available [facility] 07/19/2025 10:39:47 IPV 8 completed Not Available [facility] 07/19/2025 10:39:47 DTaP 0 completed Not Available [facility] 07/19/2025 10:39:47 IPV 0 completed Not Available [facility] 07/19/2025 10:39:47 MMR 0 completed Not Available [facility] 07/19/2025 10:39:47 DTaP 2 completed Not Available [facility] 07/19/2025 10:39:47 MMR 2 completed Not Available [facility] 07/19/2025 10:39:47 Hep B, adolescent or pediatric 7 completed Not Available [facility] 07/19/2025 10:39:47 Hep B, adolescent or pediatric 7 completed Not Available [facility] 07/19/2025 10:39:47 IPV 7 completed Not Available [facility] 07/19/2025 10:39:47 Hep B, adolescent or pediatric 7 completed Not Available [facility] 07/19/2025 10:39:47 Td (adult), 2 Lf tetanus toxoid, preservative free, adsorbed 2 completed Not Available [facility] 07/19/2025 10:39:47 Tdap 7 completed Not Available [facility] 07/19/2025 10:39:47 Influenza, split virus, quadrivalent, PF 7 completed Not Available [facility] 07/19/2025 10:39:47 Past Encounters Encounter ID Performer Location Encounter Start Date Encounter Closed Date Diagnosis/Indication Diagnosis SNOMED-CT Code Diagnosis ICD10 Code Diagnosis IMO Codes Diagnosis Note [id number] Geo Roberts MD [facility] ([facility]) [address] [place] [address] 06/21/2025 08:57:46 06/22/2025 14:34:08 [id number] Geo Roberts MD [facility] ([facility]) [address] [place], [place] [address] 06/28/2025 08:59:34 06/28/2025 10:04:00 Nocturia 486544965 R35.1 [id number] Will check a PSA given his changes in urination. Increased frequency of urination 788450454 R35.0 [id number] Will rule out infection with UA and culture and testing for STDs. Concerned that this could also be possible prostate-i tis given the increased nocturia. We will base treatment of results. Liver func tion test above reference range 200306601 R79.89 [id number] Patient did have elevated LFTs so we recheck them today. Health Concerns Section Related Observation LastModified by Organization Detai ls LastModified Time None Recorded Concern Status LastModified by Organization Details LastModified Time None Recorded Payers Encounter Date Sequence Insurance Name Policy Number Policy Colmenares Covered Member ID Colmenares Member ID Guarantor Name 06/28/2025 1 [facility] (MEDICAID REPLACEMENT - HMO) [facility] Rinku Mora [id number] Rinku Mora Notes Date Note Type Note Provider Name and Address Organization Details Recorded Time 06/28/2025 text/html Pt here today to understand why he has always been told he has tested positive for Hep C, our clinic states he does not. Pt has documentation. He has never been treated for Hep C. He also states in the last year his bladder is changing. In the night he was getting up once a night and now her gets up every hour. The last few days he states his bladder is not emptying out. Right aftering voiding, he still had feeling of full bladder with burning sensation. He states his urine is fairly dark in color. Geo Roberts MD [address] [place] [address], [phone], [facility] 07/04/2025 09:42:00
--- OUTSIDE RECORDS SUMMARY | 2025-09-08 09:15 | XMS_ITS | Encounter Summary ---
Author Organization [facility] Address [address] [place] [address] Care Team Providers Care Equal Opportunity Representative Name Role Phone Unavailable Primary Care Provider Unavailabl e Encounter Details Date Type Department Care Team (Late st Contact Info) Description 09/07/2025 External Device Data [place] ABSTRACTION Provider, Abstract NO ADDRESS ON FILE Social History Tobacco Use Types Packs/Day Years Used Date Smoking Tobacco: Every Day Cigarettes Smokeless Tobacco: Former Alcohol Use Standard Drinks/Week Comments No 0 (1 standard drink = 0.6 oz pur e alcohol) Sex and Gender Information Value Date Recorded Sex Assigned at Not on file Legal Sex Male 3:02 AM [employer]UST[employer] Gender Identity Not on file Sexual Orientation Not on file documented as of this encounter Plan of Treatment Not on file documented as of this encounter Visit Diagnoses Not on filedocumented in this encounter
--- OUTSIDE RECORDS SUMMARY | 2025-09-08 09:15 | XMS_ITS | Continuity of Care Document ---
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 The evaluation suggests a potential aggravation of gastritis alongside possible chronic prostatitis, requiring further investigation and management through adjusted medication and potential endoscopic intervention. [email or web address] Not available 07/19/2025 11:17:39 Plan of Treatment Reminders Order Date Submit Date Provider Last Modified By Organization Details Last Modified Time Details Appointments None recorded. Lab None recorded. Referral urologist referral 2024 [email or web address] 2 [facility], [address] [place], [address], 17:44:22 Procedures None recorded. Surgeries None recorded. Imaging None recorded. Medication Orders omeprazole 40 mg capsule,del ayed release 2024 [facility], [address], [place], [address], 11:18:36 levofloxaci n 500 mg tablet 2024 [facility], [address], [place], [address], 11:19:33 Patient TargetsNo targets recorded. Patient Instructions Encounter Date Encounter Id Patient Instructions Last Modified By Organization Details Last Modified Time 07/19/2025 [id number] - Start taking o meprazole, as directed, for stomach symptoms. - Begin the course of levofloxacin and complete the 14-day course. - Follow up with the recommended EGD consultation appointment. - Keep your appointment with the urologist to assess urinary symptoms. - Use meal replacement shakes to help maintain proper nutrition. - Monitor your symptoms, and any concerns should be reported, especially if symptoms worsen or do not improve. - Schedule follow-up appointments as directed and keep track of any noticeable weight changes. [email or web address] Not available 07/19/2025 11:17:41 We discussed the patient's symptoms of loss of appetite and urinary frequency, focusing on his adverse reaction to pantoprazole and subsequent trial of corn silk. I proposed switching to omeprazole, given its similar benefits with potentially fewer side effects. I informed the patient of the need for an esophagogastroduodenoscopy (EGD) to assess ongoing gastrointestinal symptoms, emphasizing that this procedure is a straightforward means to clarify potential concerns such as gastritis or other abnormalities. Additionally, in light of urinary concerns, chronic prostatitis was considered, and treatment with levofloxacin was initiated. The importance of completing the antibiotic course and following up with a urologist was stressed. We discussed potential lifestyle adjustments, emphasizing meeting nutritional needs through meal replacement shakes and monitoring weight changes moving forward. The patient verbalized his understanding and agreed with the management plan. [email or web address] Not available 07/19/2025 11:17:41 Reason for Referral Urologist Referral for Chron ic prostatitis Referring Physician: Geo Roberts, Family Medicine, Encounter Date: 07/19/2025 Results Created Date Observation Date Name Description Value Unit Range Abnormal Flag Note LastModifiedBy Organization Detail LastModifiedTime 06/28/2006/28/2025 LIVER PANEL (MALE ) total protein 7.2 g/dL 6.0-8. 5 Not Available [facility] [address] [facility] [address], [place], [address], 06/28/2025 10:50:17 06/28/2006/28/2025 LIVER PANEL (MALE ) total bilirubin 0.7 mg/dL 0.2-1. 3 Not Available [facility] [address] [facility], [place], [address], 06/28/2025 10:50:17 06/28/2006/28/2025 LIVER PANEL (MALE ) conj. bilirubin (direct) 0.00 mg/dL 0.00-0 .40 Not Available [facility] [address] [facility], [place], [address], 06/28/2025 10:50:17 06/28/2006/28/2025 LIVER PANEL (MALE ) albumin 4.4 g/dL 3.5-5. 5 Not Available [facility] [address] [facility], [place], [address], 06/28/2025 10:50:17 06/28/2006/28/2025 LIVER PANEL (MALE ) AST (SGOT) 38.0 U/L 0.0-46 .0 Not Available [place] [address] [facility], [place], [address], 06/28/2025 10:50:17 06/28/2006/28/2025 LIVER PANEL (MALE ) altv (SGPT) 41.0 U/L 13.0-6 9.0 normal Not Available [facility] [address] [facility], [place], [address], 06/28/2025 10:50:17 06/28/2006/28/2025 LIVER PANEL (MALE ) ALP phos 104.0 U/L 30.0-1 40.0 normal Not Available [facility] [address] [facility], [place], [address], 06/28/2025 10:50:17 06/28/2006/28/2025 URINA LYSIS WITH MICRO color YELLOW Not Available [facility] [address], [place], [address], 06/28/2025 11:05:39 06/28/20 25 06/28/2025 URINA LYSIS WITH MICRO clarity CLOUDY Not Available [facility] [address], [place], [address], 06/28/2025 11:05:39 06/28/20 25 06/28/2025 URINA LYSIS WITH MICRO glu NEGATI VE Not Available [facility] [address], [place], [address], 06/28/2025 11:05:39 06/28/20 25 06/28/2025 URINA LYSIS WITH MICRO bili NEGATI VE Not Available [facility] [address], [place], [address], 06/28/2025 11:05:39 06/28/20 25 06/28/2025 URINA LYSIS WITH MICRO ket NEGATI VE Not Available [facility] [address], [place], [address], 06/28/2025 11:05:39 06/28/20 25 06/28/2025 URINA LYSIS WITH MICRO S.g 1.015 1.005- 1.025 Not Available [facility] [address], [place], [address], 06/28/2025 11:05:39 06/28/20 25 06/28/2025 URINA LYSIS WITH MICRO pH 7.5 5.0-7. 0 high Not Available [facility] [address], [place], [address], 06/28/2025 11:05:39 06/28/20 25 06/28/2025 URINA LYSIS WITH MICRO pro NEGATI VE Not Available [facility] [address], [place], [address], 06/28/2025 11:05:39 06/28/20 25 06/28/2025 URINA LYSIS WITH MICRO uro 1.0 E.U./D L Not Available [facility] [address] [facility] [address], [place], [address], 06/28/2025 11:05:39 06/28/20 25 06/28/2025 URINA LYSIS WITH MICRO nit NEGATI VE Not Available [facility] [address] [facility] [address], [place], [address], 06/28/2025 11:05:39 06/28/20 25 06/28/2025 URINA LYSIS WITH MICRO blo NEGATI VE Not Available [facility] [address] [facility] [address], [place], [address], 06/28/2025 11:05:39 06/28/20 25 06/28/2025 URINA LYSIS WITH MICRO tino NEGATI VE Not Available [facility] [address] [facility] [address], [place], [address], 06/28/2025 11:05:39 06/28/20 25 06/28/2025 URINA LYSIS WITH MICRO WBC 0 Not Available [facility] [address] [facility] [address], [place], [address], 06/28/2025 11:05:39 06/28/20 25 06/28/2025 URINA LYSIS WITH MICRO RBC 0 Not Available [facility] [address] [facility] [address], [place], [address], 06/28/2025 11:05:39 06/28/20 25 06/28/2025 URINA LYSIS WITH MICRO epi cells 0 Not Available [facility] [address] [facility] [address], [place], [address], 06/28/2025 11:05:39 06/28/20 25 06/28/2025 URINA LYSIS WITH MICRO bacteria 2+ AMORPH OUS Not Available [facility] [address], [place], [address], 06/28/2025 11:05:39 06/28/20 25 06/28/2025 URINA LYSIS WITH MICRO other NEGATI VE Not Available [facility] [address], [place], [address], 06/28/2025 11:05:39 06/28/20 25 06/29/2025 PSA, TOTAL PSA, total 0.27 NG/mL < or = 4.00 normal The total PSA value from this assay syste m is stand ardiz ed again st the WHO stand marilou. The test resul t will be appro ximat bart 20% lower when kevin red to the equim olar- stand ardiz ed total PSA (Kinney man Coult er). Kevin rison of seria l PSA resul ts shoul d be inter prete d with this fact in mind. This test was perfo rmed using the [employer] ns chemi lumin escen t metho d. Value s obtai kitty from diffe rent assay metho ds canno t be used inter hamilton eay . PSA level s, regar dless of value , shoul d not be inter prete d as absol boogie evide nce of the prese nce or absen ce of disea se. Not Available [facility] [address] [place], [address], 06/29/2025 23:42:16 06/28/2006/29/2025 CHLAM YDIA/ N.CLYDE ORRHO EAE AND T. VAGIN FLORENCIO RNA, QL TMA chlamydia trachomatis RNA, tma, urogenital NOT DETECT ED not detect ed normal Not Available [employer] [facility] [address] [place], [address], 06/29/2025 23:42:16 06/28/20 25 06/29/2025 CHLAM YDIA/ N.CLYDE ORRHO EAE AND T. VAGIN FLORENCIO RNA, QL TMA neisseria gonorrhoeae RNA, tma, urogenital NOT DETECT ED not detect ed normal Not Available [place] [address] [place], [address], 06/29/2025 23:42:16 06/28/20 25 06/29/2025 CHLAM YDIA/ N.CLYDE ORRHO EAE AND T. VAGIN FLORENCIO RNA, QL TMA comment The judy tical perfo rmanc e geraldine cteri stics of this assay , when used to test SureP ath(T M) speci mens have been deter mined by [facility]. The modif icati ons have not been clear ed or appro brandon by the FDA. This assay has been valid ated pursu ant to the CLIA regul ation s and is used for clini evelia purpo ses. For addit ional infor morro pedraza e refer to https ://ed ucati on.qu estdi [employer] Black Raven and Stag/f aq/FA Q154 (This link is being provi ded for infor caroline napier/ educa jeremy l purpo ses only. ) Not Available [employer] [facility] [place] [address] [address], [place], [address], 06/29/2025 23:42:16 06/28/2006/29/2025 CHLAM YDIA/ N.CLYDE ORRHO EAE AND T. VAGIN FLORENCIO RNA, QL TMA trichomonas vaginalis RNA, ql tma NOT DETECT ED not detect ed normal For addit ional infor morro pedraza e refer to http: //ella watson stdia gnost ics.c om/ faq/T maría elena ellington tma (This link is being provi ded for infor matio nal/ educa jeremy l purpo ses only. ) Not Available [employer] [place] [address] [place], [address], 06/29/2025 23:42:16 06/28/20 25 06/29/2025 CULTU RE, URINE , ROUTI NE culture, urine, routine SEE NOTE CULTU RE, URINE , ROUTI NE Micro Numbe r: [id number] Test Statu s: Final Speci men Sourc e: Urine , clean catch Speci men Quali ty: Adequ ate Resul t: No Growt h Not Available [employer] [facility] [address] [place], [address], 06/29/2025 23:42:17 06/22/20 25 06/21/2025 US, liver No observ ation record ed. [facility] [address] [place], [address], 06/23/2025 16:32:23 Result Notes None recorded. Problems Name Problem SNOMED Code Status Onset Date Resolution Date Notes Provider Name and Address Organization Details Recorded Time Chronic hepatitis C 585374317 Active 2024 Geo Roberts MD [address] [place] [address], [address], [facility], L.LRebekahCRebekah 11:12:41 Gastroesophage al reflux disease without esophagitis 518286675 Active 2024 Geo Roberts MD [address] [place] [address], [address], [facility], L.LRebekahCRebekah 11:13:38 Nocturia 456455368 Active 2024 Geo Roberts MD [address] [place] [address], [address], [facility], L.LRebekahCRebekah 09:34:46 Increased frequency of urination 061452381 Active 2024 Geo Roberts MD [address] [place] [address], [address], [facility], LRebekahLSanjay 09:34:58 Liver function test above reference range 501436197 Active 2024 Geo Roberts MD [address] [place], [address], [facility], Nik 09:38:57 Chronic prostatitis 69906655 Active 2024 Geo Roberts MD [address] [place], [address], [facility], Nik 11:20:06 Loss of appetite 52528964 Active 2024 Geo Roberts MD [address] [place], [address], [facility], Nik 11:11:12 Problem Notes None recorded. Medical Equipment [...] height Body mass index (BMI) Body weight Oxygen saturation Heart rate Respiratory rate Body temperature Systolic And Diastolic Provider Name and Address Organization Details Last Updated DateTime 182.88 cm 17.7 kg/m2 03160.8 8 g 99 % 75 /min 20 /min 97.6 [degF] 124/72 mm[Hg] Farrah Moshe [facility] 10:55:12 Social History Question Answer Notes LastModified by Organizat ion Details LastModified Time Tobacco Smoking Status Current Every Day [facility] 05/26/2025 11:02:26 What Is Your Level Of Caffeine Consumption? Moderate [email or web address] Information not available 07/19/2025 Which Illicit Or Recreational Drugs Have You Used? Marijuana [email or web address] Information not available 05/26/2025 What Type Of Marijuana Have You Used? Smoke [email or web address] Information not available 07/19/2025 Do You Or Have You Ever Used Marijuana? Current Some Days User [email or web address] Information not available 07/19/2025 What Was The Date Of Your Most Recent Tobacco Screening? 06/28/2025 Information not available 06/28/2025 Was Your Marijuana Use Recreational Or Medical? Recreational Information not available 07/19/2025 At What Age Did You Start Smoking Tobacco? 15 [email or web address] Information not available 07/19/2025 Have You Used IV Drugs? Yes [email or web address] Information not available 07/19/2025 Sex: Unknown Functional Status Question Answer Note LastModified by Organizat ion Details LastModified Time Do you use any illicit or recreational drugs? Yes [email or web address] Information not available 05/26/2025 What is your level of alcohol consumption? None [email or web address] Information not available 05/26/2025 Mental Status None [...] adolescent or pediatric 7 completed Not Available [facility] 07/19/2025 10:39:47 Hep B, adolescent or pediatric 7 completed Not Available [facility] 07/19/2025 10:39:47 IPV 7 completed Not Available [facility] 07/19/2025 10:39:47 Hep B, adolescent or pediatric 7 completed Not Available [facility] 07/19/2025 10:39:47 Td (adult), 2 Lf tetanus toxoid, preservative free, adsorbed 2 completed Not Available [facility] 07/19/2025 10:39:47 Tdap 7 completed Not Available [facility] 07/19/2025 10:39:47 Influenza, split virus, quadrivalent, PF 7 completed [facility] 10:39:47 Past Encounters Encounter ID Performer Location Encounter Start Date Encounter Closed Date Diagnosis/Indication Diagnosis SNOMED-CT Code Diagnosis ICD10 Code Diagnosis IMO Codes Diagnosis Note [id number] Geo Roberts MD [facility] ([facility]) [address] [place] [address] 06/21/2025 08:57:46 06/22/2025 14:34:08 [id number] Geo Roberts MD [facility] ([facility]) [address] [place] [address] 06/28/2025 08:59:34 06/28/2025 10:04:00 Nocturia 357672892 R35.1 [id number] Will check a PSA given his changes in urination. Increased frequency of urination 945536808 R35.0 292644 Will rule out infection with UA and culture and testing for STDs. Concerned that this could also be possible prostate-i tis given the increased nocturia. We will base treatment of results. Liver func tion test above reference range 773897150 R79.89 670365 Patient did have elevated LFTs so we recheck them today. [id number] Geo Robrets MD [facility] ([facility]) [address] [place] [phone] 07/19/2025 10:39:12 07/19/2025 11:21:17 Loss of appetite 01245278 R63.0 73636 - Omeprazole initiated as an alternativ e treatment option. - EGD consult recommende d for further evaluation of gastrointe stinal issues. - Advised dietary modificati ons including meal replacemen t shakes to ensure nutritiona l support. Chronic prostatitis 1989 5009 N41.1 - Levofloxac in prescribed for 28 days.- Referral to a urologist commenced for potential chronic prostatiti s assessment and further management . Health Concerns Section Related Observation LastModified by Organization Detai ls LastModified Time None Recorded Concern Status LastModified by Organization Details LastModified Time None Recorded Payers Encounter Date Sequence Insurance Name Policy Number Policy Colmenares Covered Member ID Colmenares Member ID Guarantor Name 07/19/2025 1 [facility] ([facility]ICAID REPLAC[facility] - HMO) [facility] Rinku Mora [id number] Rinku Mora Notes Date Note Type Note Provider Name and Address Organization Details Recorded Time 07/19/2025 text/html Weight LossRepor ray by PatientHPIFor associated symptoms, patient reportsabdominal pain,nausea, andbloating(he is unable to eat very much at one time). For severity, patient reportsamount of weight loss 8, weight loss over __ months(over the last 3 weeks). For quality, patient reportsworsening. For duration, patient reportsabrupt onset. The patient is a 40-year-old male presenting with loss of appetite and urinary frequency. He experienced adverse effects from pantoprazole and switched to corn silk, which moderately alleviated the symptoms. Persistent urinary frequency and a notable lack of appetite have led to significant weight loss. His condition worsened after sharlene COVID-19, indicating an ongoing challenge with eating regular meals, predominantly consuming candy or meal replacement shakes. Geo Roberts MD [address] [place] [address], [phone], [facility], Nik 07/19/2025 11:20:58
--- OUTSIDE RECORDS SUMMARY | 2025-09-08 09:15 | XMS_ITS | Encounter Summary ---
Author Organization [facility] Address 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
--- OUTSIDE RECORDS SUMMARY | 2025-09-08 09:15 | XMS_ITS | Data Portability ---
Author Organization JAIR Frazier [facility] Address [address] [place] [address] Care Team Providers Care Magnetic Resonance Technologist Name Role Phone GEO ROBERTS Primary Care [...] to the patient and the patient expressed understanding. [email or web address] Not available 07/04/2025 09:41:48 07/19/2025 07/19/2025 40-year-old male with a history [...] NG + TV, DNA, urine/swab 2024 025 [facility], [address], [address] [place], [address], 23:42:16 urinalysis, complete 2024 025 ELLA [facility], [address], [address], [place], [address], 5 11:05:40 culture, urine 2024 025 [facility], [address] [place] [address], [address], [place], [address], 5 23:42:17 PSA, serum or plasma 2024 025 [facility], [address] [place] [address], [address], [place], [address], 5 23:42:16 hepatic function panel, serum 2024 025 [facility], [address], [address], [place], [address], 5 10:50:17 hepatitis C virus RNA, quant, PCR, serum or plasma 2024 025 [place] [facility], [address] [place] [address], [address], [place], [address], 5 02:30:44 hepatitis C genotype, serum or plasma 2024 025 [facility], [address] [place] [address], [address], [place], [address], 5 02:30:43 CBC 2024 025 [facility], [address], [address], [place], [address], 5 11:51:19 CMP, serum or plasma 2024 025 [facility], [address], [address], [place], [address], 5 13:17:27 afp (alpha-feto protein) tumor marker, serum or plasma 2024 [facility], [address], [address], [place], [address], 5 02:30:42 HBsAg (hepatitis B surface Ag), serum 2024 [facility], [address], [address], [place], [address], 5 02:30:38 hepatitis B surface Ab, qualitative , serum 2024 [email or web address] 23 [facility], [address], [address], [place], [address], 5 07:28:29 hepatitis B virus core Ab, qualitative , serum 2024 [email or web address] 23 [facility], [address] [place] [address], [address], [place], [address], 5 07:28:29 Referral urologist referral 2024 [email or web address] 2 [facility], [address] [place], [address], 17:44:22 Procedures None recorded. Surgeries None recorded. Imaging US, liver - [id number] 2024 [facility], [address] [place], [address], 11:40:39 Medication Orders omeprazole 40 mg capsule,del ayed release 2024 [facility], [address], [place], [address], 11:18:36 levofloxaci n 500 mg tablet 2024 ELLA [facility], [address], [place], [address], 11:19:33 pantoprazol e 40 mg tablet,lisa yed release 2024 025 [facility], [address], [place], [address], 10:56:31 Patient TargetsNo targets recorded. Patient Instructions Encounter Date Encounter Id Patient Instructions Last Modified By Organization Details Last Modified Time 07/19/2025 [id number] - Start taking o meprazole, as directed, [...] Abnormal Flag Note LastModifiedBy Organization Detail LastModifiedTime 05/26/2005/26/2025 CBC WBC 4.1 x10 4.5-10 .5 low Not Available [facility] [address], [place], [address], 05/26/2025 11:51:19 05/26/2005/26/2025 CBC RBC 4.58 x10 4.30-5 .90 Not Available [facility] [address], [place], [address], 05/26/2025 11:51:19 05/26/2005/26/2025 CBC HGB 14.1 g/dL 13.5-1 8.0 Not Available [facility] [address] [facility] [[email or web address] 1, [place], [address], 05/26/2025 11:51:19 05/26/20 25 05/26/2025 CBC HCT 43.1 % 35.0-6 0.0 Not Available [facility] [address] [facility] [[email or web address] 1, [place], [address], 05/26/2025 11:51:19 05/26/20 25 05/26/2025 CBC MCV 94.1 fL 80.0-9 9.9 Not Available [facility] [address] [facility] [[email or web address] 1, [place], [address], 05/26/2025 11:51:19 05/26/20 25 05/26/2025 CBC MCH 30.8 pg 27.0-3 2.0 Not Available [facility] [address] [facility] [[email or web address] 1, [place], [address], 05/26/2025 11:51:19 05/26/20 25 05/26/2025 CBC MCHC 32.7 g/dL 32.0-3 6.0 Not Available [facility] [address], [place], [address], 05/26/2025 11:51:19 05/26/2005/26/2025 CBC RDW 13.5 % 11.5-1 4.5 Not Available [facility] [address] [facility] [address], [place], [address], 05/26/2025 11:51:19 05/26/2005/26/2025 CBC plt 235.9 x10 150.0- 451.0 Not Available [facility] [address] [facility] [address], [place], [address], 05/26/2025 11:51:19 05/26/2005/26/2025 CBC lymphocytes % 33.8 % 20.0-5 0.0 Not Available [facility] [address] [address], [place], [address], 05/26/2025 11:51:19 05/26/20 25 05/26/2025 CBC granulcytes % 52.3 % 30.0-7 0.0 Not Available [facility] [address] [address], [place], [address], 05/26/2025 11:51:19 05/26/20 25 05/26/2025 CBC monocytes % 9.4 % 2.0-16 .0 Not Available [facility] [address] [address], [place], [address], 05/26/2025 11:51:19 05/26/20 25 05/26/2025 CBC granulcytes# 2.2 x10 Not Radha ilable [facility] [address] [address], [place], [address], 05/26/2025 11:51:19 05/26/20 25 05/26/2025 CBC lymphocytes # 1.4 x10 Not Available [facility] [address] [facility] [[email or web address] 1, [place], [address], 05/26/2025 11:51:19 05/26/2005/26/2025 CBC monocytes # 0.4 x10 Not [facility] [address] [facility] [[email or web address] 1, [place], [address], 05/26/2025 11:51:19 05/26/20 25 05/27/2025 CMP (MALE ) glucose 87.0 mg/dL 60.0-9 9.0 Not Available [facility] [address] [facility], [place], [address], 05/27/2025 13:17:27 05/26/20 25 05/27/2025 CMP (MALE ) BUN (blood urea nitrogen) 21.0 mg/dL 10.0-2 6.0 Not Available [facility] [address] [facility], [place], [address], 05/27/2025 13:17:27 05/26/20 25 05/27/2025 CMP (MALE ) creatinine (serum) 1.0 mg/dL 0.4-1. 5 Not Available [facility] [address] [facility], [place], [address], 05/27/2025 13:17:27 05/26/20 25 05/27/2025 CMP (MALE ) BUN/creatini ne ratio 21.00 ratio Not Available [facility] [address] [facility], [place], [address], 05/27/2025 13:17:27 05/26/20 25 05/27/2025 CMP (MALE ) eGFR calculated 88.9 Not Available [facility] [address] [facility] [[email or web address] 1, [place], [address], 05/27/2025 13:17:27 05/26/20 25 05/27/2025 CMP (MALE ) total protein 7.2 g/dL 6.0-8. 5 Not Available [facility] [address] [facility] [[email or web address] 1, [place], [address], 05/27/2025 13:17:27 05/26/20 25 05/27/2025 CMP (MALE ) total bilirubin 0.8 mg/dL 0.2-1. 3 Not Available [facility] [address] [facility] [[email or web address] 1, [place], [address], 05/27/2025 13:17:27 05/26/20 25 05/27/2025 CMP (MALE ) albumin 4.6 g/dL 3.5-5. 5 Not Available [facility] [address] [facility] [[email or web address] 1, [place], [address], 05/27/2025 13:17:27 05/26/20 25 05/27/2025 CMP (MALE ) globulin 2.6 calc Not Available [facility] [address] [facility], [place], [address], 05/27/2025 13:17:27 05/26/20 25 05/27/2025 CMP (MALE ) AST (SGOT) 244.0 U/L 0.0-46 .0 high Not Available [facility] [address] [facility], [place], [address], 05/27/2025 13:17:27 05/26/20 25 05/27/2025 CMP (MALE ) altv (SGPT) 296.0 U/L 13.0-6 9.0 abnormal Not Available [facility] [address] [facility] [[email or web address] 1, [place], [address], 05/27/2025 13:17:27 05/26/20 25 05/27/2025 CMP (MALE ) A/G ratio 1.8 ratio Not Available [facility] [address] [facility] [address], [place], [address], 05/27/2025 13:17:27 05/26/2005/27/2025 CMP (MALE ) ALP phos 173.0 U/L 30.0-1 40.0 abnormal Not Available [facility] [address] [facility] [address], [place], [address], 05/27/2025 13:17:27 05/26/2005/27/2025 CMP (MALE ) calcium 9.5 mg/dL 8.4-10 .5 Not Available [facility] [address] [facility] [address], [place], [address], 05/27/2025 13:17:27 05/26/2005/27/2025 CMP (MALE ) sodium 140.0 mmol/ L 136.0- 145.0 Not Available [facility] [address] [facility] [address], [place], [address], 05/27/2025 13:17:27 05/26/2005/27/2025 CMP (MALE ) potassium 4.2 mmol/ L 3.5-5. 1 Not Available [facility] [address] [facility] [address], [place], [address], 05/27/2025 13:17:27 05/26/2005/27/2025 CMP (MALE ) chloride 99.0 mmol/ L 98.0-1 10.0 normal Not Available [facility] [address] [facility] [address], [place], [address], 05/27/2025 13:17:27 05/26/2005/27/2025 CMP (MALE ) C02 34.0 mmol/ L 22.0-3 1.0 high Not Available [facility] [address] [facility] [address], [place], [address], 05/27/2025 13:17:27 05/26/20 25 05/27/2025 CMP (MALE ) anion gap 7.0 calc Not Available [facility] [address] [facility] [[email or web address] 1, [place], [address], 05/27/2025 13:17:27 05/26/20 25 05/27/2025 CMP (MALE ) osmolality 291.4 calc Not Available [facility] [address] [facility], [place], [address], 05/27/2025 13:17:27 05/26/20 25 05/31/2025 HEPAT ITIS B SURFA CE ANTIG EN W/REF L CONFI RM hepatitis B surface antigen NON-RE ACTIVE non-re active normal For addit ional infor morro pedraza e refer to http: //[facility] catcatie n.que stdia gnost ics.c om/fa q/FAQ (This link is being provi ded for infor matio nal/ educa jeremy l purpo ses only. ) Not Available [facility] [address] [address] [place], [address], 05/31/2025 02:30:38 05/26/20 25 05/31/2025 HEPAT ITIS B CORE AB TOTAL hepatitis B core Ab total NON-RE ACTIVE non-re active normal For addit ional infor morro pedraza e refer to http: //[employer] catio n.que stdia gnost ics.c om/fa q/FAQ (This link is being provi ded for infor matio nal/ educa jeremy l purpo ses only. ) Not Available [facility] [address] [place], [address], 05/31/2025 02:30:41 05/26/20 25 05/31/2025 HEPAT ITIS B SURFA CE ANTIB ABEBA QL (REFL ) hepatitis B surface antibody ql (refl) NON-RE ACTIVE non-re active normal Our recor ds indic ate that you have order ed a clien t custo m refle x order code. Only the initi al test was perfo rmed becau se we do not have a clien t custo m refle x testi ng autho rizat ion reque st form on file for you. Pleas e conta ct a clien t servi ce repre senta tive if you would like addit ional testi ng done on this patie nt or conta ct your sales repre senta tive to obtai n a clien t custo m refle x testi ng autho rizat ion reque st form. Not Available [address] [address] [place], [address], 05/31/2025 02:30:42 05/26/2005/31/2025 ALPHA FETOP ROTEI N, TUMOR MARKE R alpha fetoprotein, tumor marker 1.4 NG/mL <6.1 This test was perfo rmed using the [employer] er chemi lumin escen t metho d. Value s obtai kitty from diffe rent assay metho ds canno t be used inter hamilton eably . AFP level s, regar dless of value , shoul d not be inter prete d as absol boogie evide nce of the prese nce or absen ce of disea se. Not Available [facility] [address] [address] [address] , [place], [address], 05/31/2025 02:30:42 05/26/2005/31/2025 HEPAT ITIS C VIRUS RNA GENOT YPE hepatitis C virus RNA genotype NOT DETECT ED normal Unabl e to obtai n a genot ype due to low or no viral load, mutat ions in viral genom e at assay primi ng sites , or prese nce of inhib itory subst ance. Viral load of >=200 0 IU/mL is requi red for testi ng. REFER ENCE RANGE : NOT DETEC KIM The metho ds used in this test are RT-PC R and DNA Seque ncing of the 5' UTR and core regio n of the HCV genom e. For addit ional infor morro pedraza e refer to http: //[facility] rima falconQue stDia gnost ics.c om/fa q/HCV Genot yping (This link is being provi ded for infor matio nal/ educa jeremy l purpo ses only. ) This test was devel oped and its judy tical perfo rmanc e geraldine cteri stics have been deter mined by [facility]. It has not been clear ed or appro brandon by the FDA. This assay has been valid ated pursu ant to the CLIA regul ation s and is used for clini evelia purpo ses. Not Available [facility] [address] [address] [place], [address], 05/31/2025 02:30:43 05/26/2005/31/2025 HCV RNA, QUANT ITATI VE REAL TIME PCR HCV RNA, quantitative real time PCR <15 NOT DETECT ED IU/mL normal Not Available [facility] [address] [address] [place], [address], 05/31/2025 02:30:44 05/26/20 25 05/31/2025 HCV RNA, QUANT ITATI VE REAL TIME PCR HCV RNA, quantitative real time PCR <1.18 NOT DETECT ED log_I U/mL normal REFER ENCE RANGE : NOT DETEC KIM IU/mL NOT DETEC KIM Log IU/mL For addit ional infor morro pedraza e refer to http: //[facility] rima watson stdia gnost ics.c om/fa q/FAQ 22v1 (This link is being provi ded for infor matio nal/ educa jeremy l purpo ses only. ) Not Available [facility] [address] [place], [address], 05/31/2025 02:30:44 06/28/2006/28/2025 LIVER PANEL (MALE ) total protein 7.2 g/dL 6.0-8. 5 Not Available [facility] [address] [address], [place], [address], 06/28/2025 10:50:17 06/28/2006/28/2025 LIVER PANEL (MALE ) total bilirubin 0.7 mg/dL 0.2-1. 3 Not Available [facility] [address] [facility] [[email or web address] 1, [place], [address], 06/28/2025 10:50:17 06/28/2006/28/2025 LIVER PANEL (MALE ) conj. bilirubin (direct) 0.00 mg/dL 0.00-0 .40 Not Available [facility] [address] [facility] [[email or web address] 1, [place], [address], 06/28/2025 10:50:17 06/28/2006/28/2025 LIVER PANEL (MALE ) albumin 4.4 g/dL 3.5-5. 5 Not Available [facility] [address] [facility] [[email or web address] 1, [place], [address], 06/28/2025 10:50:17 06/28/2006/28/2025 LIVER PANEL (MALE ) AST (SGOT) 38.0 U/L 0.0-46 .0 Not Available [facility] [address] [facility] [[email or web address] 1, [place], [address], 06/28/2025 10:50:17 06/28/2006/28/2025 LIVER PANEL (MALE ) altv (SGPT) 41.0 U/L 13.0-6 9.0 normal Not Available [facility] [address] [facility] [[email or web address] 1, [place], [address], 06/28/2025 10:50:17 06/28/2006/28/2025 LIVER PANEL (MALE ) ALP phos 104.0 U/L 30.0-1 40.0 normal Not Available [facility] [address] [facility] [[email or web address] 1, [place], [address], 06/28/2025 10:50:17 06/28/2008 0706/28/2025 URINA LYSIS WITH MICRO color YELLOW Not Available [facility] [address], [place], [address], 06/28/2025 11:05:39 06/28/20 25 06/28/2025 URINA LYSIS WITH MICRO clarity CLOUDY Not Available [facility] [address], [place], [address], 06/28/2025 11:05:39 06/28/20 25 06/28/2025 URINA LYSIS WITH MICRO glu NEGATI VE Not Available [facility] [address], [place], [address], 06/28/2025 11:05:39 06/28/20 25 06/28/2025 URINA LYSIS WITH MICRO bili NEGATI VE Not Available [facility] [address], [place], [address], 06/28/2025 11:05:39 06/28/20 25 06/28/2025 URINA LYSIS WITH MICRO ket NEGATI VE Not Available [facility] [address], [place], [address], 06/28/2025 11:05:39 06/28/2006/28/2025 URINA LYSIS WITH MICRO S.g 1.015 1.005- 1.025 Not Available [facility] [address], [place], [address], 06/28/2025 11:05:39 06/28/20 25 06/28/2025 URINA LYSIS WITH MICRO pH 7.5 5.0-7. 0 high Not Available [facility] [address], [place], [address], 06/28/2025 11:05:39 06/28/2006/28/2025 URINA LYSIS WITH MICRO pro NEGATI VE Not Available [facility] [address] [facility] [[email or web address] 1, [place], [address], 06/28/2025 11:05:39 06/28/20 25 06/28/2025 URINA LYSIS WITH MICRO uro 1.0 E.U./D L Not Available [facility] [address] [facility] 1, [place], [address], 06/28/2025 11:05:39 06/28/20 25 06/28/2025 URINA LYSIS WITH MICRO nit NEGATI VE Not Available [facility] [address] [facility] 1, [place], [address], 06/28/2025 11:05:39 06/28/20 25 06/28/2025 URINA LYSIS WITH MICRO blo NEGATI VE Not Available [facility] [address] [facility] [address], [place], [address], 06/28/2025 11:05:39 06/28/20 25 06/28/2025 URINA LYSIS WITH MICRO tino NEGATI VE Not Available [facility] [address] [facility] [address], [place], [address], 06/28/2025 11:05:39 06/28/20 25 06/28/2025 URINA LYSIS WITH MICRO WBC 0 Not Available [facility] [address] [facility] 1, [place], [address], 06/28/2025 11:05:39 06/28/20 25 06/28/2025 URINA LYSIS WITH MICRO RBC 0 Not Available [facility] [address] [facility] 1, [place], [address], 06/28/2025 11:05:39 06/28/20 25 06/28/2025 URINA LYSIS WITH MICRO epi cells 0 Not Available [facility] [address], [place], [address], 06/28/2025 11:05:39 06/28/2006/28/2025 URINA LYSIS WITH MICRO bacteria 2+ AMORPH OUS Not Available [facility] [address], [place], [address], 06/28/2025 11:05:39 06/28/20 25 06/28/2025 URINA LYSIS WITH MICRO other NEGATI VE Not Available [facility] [address], [place], [address], 06/28/2025 11:05:39 06/28/2006/29/2025 PSA, TOTAL PSA, total 0.27 NG/mL < [...] This test was perfo rmed using the [employer] ns chemi lumin escen t metho d. Value s obtai kitty from diffe rent assay metho ds canno t be used inter [place] . PSA level s, regar dless of value , shoul d not be inter prete d as absol boogie evide nce of the prese nce or absen ce of disea se. Not Available [facility] [address] [address] [place], [address], 06/29/2025 23:42:16 06/28/2006/29/2025 CHLAM YDIA/ N.CLYDE ORRHO EAE AND T. VAGIN FLORENCIO RNA, QL TMA chlamydia trachomatis RNA, tma, urogenital NOT DETECT ED not detect ed normal Not Available [facility] [place], [address], 06/29/2025 23:42:16 06/28/20 25 06/29/2025 CHLAM YDIA/ N.CLYDE ORRHO EAE AND T. VAGIN FLORENCIO RNA, QL TMA neisseria gonorrhoeae RNA, tma, urogenital NOT DETECT ED not detect ed normal Not Available [address], [address], 06/29/2025 23:42:16 06/28/2006/29/2025 CHLAM YDIA/ N.CLYDE ORRHO [...] refer to https ://ed ucati on.qu devan [employer]. Hitsbook/f aq/FA Q154 (This link is being provi ded for infor matcatie n/ educa jeremy l purpo ses only. ) Not Available [facility] [address], [address], 06/29/2025 23:42:16 06/28/2006/29/2025 CHLAM YDIA/ N.CLYDE ORRHO [...] l purpo ses only. ) Not Available [facility] [address], [address], 06/29/2025 23:42:16 06/28/20 25 06/29/2025 CULTU RE, URINE , ROUTI NE culture, urine, routine SEE NOTE CULTU RE, URINE , ROUTI NE Micro Numbe r: [id number] Test Statu s: Final Speci men Sourc e: Urine , clean catch Speci men Quali ty: Adequ ate Resul t: No Growt h Not Available [facility] [address] [address], [place], [address], 06/29/2025 23:42:17 06/22/20 25 06/21/2025 US, liver No observ ation record ed. [facility] [address] [place], [address], 06/23/2025 16:32:23 Result Notes None recorded. Problems Name Problem SNOMED Code Status Onset Date Resolution Date Notes Provider Name and Address Organization Details Recorded Time Chronic hepatitis C 206965554 Active 2024 Geo Roberts MD [address] [place] [address], [phone], [facility] L.LRebekahCRebekah 11:12:41 Gastroesophage al reflux disease without esophagitis 840344096 Active 2024 Geo Roberts MD [address] [place] [address], [phone], [facility] 11:13:38 Nocturia 983307459 Active 2024 Geo Roberts MD [address] [place] [address], [phone] 5, [facility] 09:34:46 Increased frequency of urination 358315352 Active 2024 Geo Roberts MD [address] [place] [address], [address] 5, [facility] 5 09:34:58 Liver function test above reference range 999791278 Active 2024 Geo Roberts MD [address] [place] [address], [phone] 5, [facility] 5 09:38:57 Chronic prostatitis 16476671 Active 2024 Geo Roberts MD [address] [place] [address], 22[address]670 5, [facility] 5 11:20:06 Loss of appetite 71511633 Active 2024 Geo Roberts MD [address] [place] [address], [address] 5, [facility] 11:11:12 Problem Notes None recorded. Medical [...] Available Not Available Vitals Date Recorded Body weight Body mass index (BMI) Body height Body temperature Oxygen saturation Heart rate Systolic And Diastolic Provider Name and Address Organization Details Last Updated DateTime 5 42886.3 8 g 18.2 kg/m2 182.88 cm 97.6 [degF] 96 % 72 /min 106/72 mm[Hg] [facility] 5 10:57:06 Date Recorded Body height Body mass index (BMI) Body weight Body temperature Oxygen saturation Heart rate Systolic And Diastolic Provider Name and Address Organization Details Last Updated DateTime 5 182.88 cm 18.7 kg/m2 13465.7 5 g 98.4 [degF] 99 % 56 /min 108/80 mm[Hg] [facility] 5 09:06:09 Date Recorded Body height Body mass index (BMI) Body weight Oxygen saturation Heart rate Respiratory rate Body temperature Systolic And Diastolic Provider Name and Address Organization Details Last Updated DateTime 5 182.88 cm 17.7 kg/m2 78579.8 8 g 99 % 75 /min 20 /min 97.6 [degF] 124/72 mm[Hg] [facility] 5 10:55:12 Social History Question Answer Notes LastModified by Organizat ion Details LastModified Time Tobacco Smoking Status Current Every Day Smoker vape [facility] 05/26/2025 11:02:26 What Is Your Level Of Caffeine Consumption? Moderate [email or web address] Information not available 07/19/2025 Which Illicit Or Recreational Drugs Have You Used? Marijuana [email or web address] Information not available 05/26/2025 What Type Of Marijuana Have You Used? Smoke Information not available 07/19/2025 Do You Or Have You Ever Used Marijuana? Current Some Days User [email or web address] Information not available 07/19/2025 What Was The Date Of Your Most Recent Tobacco Screening? 06/28/2025 [email or web address] Information not available 06/28/2025 Was Your Marijuana Use Recreational Or Medical? Recreational [email or web address] Information not available 07/19/2025 At What Age Did You Start Smoking Tobacco? 15 [email or web address] Information not available 07/19/2025 Have You Used IV Drugs? Yes Information not available 07/19/2025 Sex: Unknown Functional Status Question Answer Note LastModified by Organizat ion Details LastModified Time Do you use any illicit or recreational drugs? Yes Information not available 05/26/2025 What is your level of alcohol consumption? None [email or web address] Information not available 05/26/2025 Mental Status None [...] 07/19/2025 10:39:47 IPV 7 completed Not Available [facility] 07/19/2025 10:39:47 Hep B, adolescent or pediatric 7 completed Not Available [facility] 07/19/2025 10:39:47 Td (adult), 2 Lf tetanus toxoid, preservative free, adsorbed 2 completed Not Available [facility] 07/19/2025 10:39:47 Tdap 7 completed Not Available [facility] 07/19/2025 10:39:47 Influenza, split virus, quadrivalent, PF 7 completed Not Available [facility] 07/19/2025 10:39:47 Past Encounters Encounter ID Performer Location Encounter Start Date Encounter Closed Date Diagnosis/Indication Diagnosis SNOMED-CT Code Diagnosis ICD10 Code Diagnosis IMO Codes Diagnosis Note [id number] Geo Roberts MD [facility] ([facility] [address]) [address] [place] [phone] 05/26/2025 10:48:20 05/26/2025 11:55:20 Chronic hepatitis C 555362788 B18.2 [id number] Discussed workup to evaluate for hepatitis C treatment. Patient would like to go ahead and proceed. Will obtain lab work and ultrasound . Gastroesop hageal reflux disease without esophagitis [id number] K21.9 [id number] Concerned that the patient's symptoms are could be related to gastritis. Recommend starting pantoprazo le daily and follow-up if symptoms do not improve. [id number] Geo Roberts MD [facility] ([facility] [address]) [address] [place] [phone] 06/21/2025 08:57:46 06/22/2025 14:34:08 [id number] Geo Roberts MD [facility] ([facility] [address]) [address] [place] [phone] 06/28/2025 08:59:34 06/28/2025 10:04:00 Nocturia 258025408 R35.1 [id number] Will check a PSA given his changes in urination. Increased frequency of urination 384038187 R35.0 [id number] Will rule out infection with UA and culture and testing for STDs. Concerned that this could also be possible prostate-i tis given the increased nocturia. We will base treatment of results. Liver func tion test above reference range [id number] R79.89 [id number] Patient did have elevated LFTs so we recheck them today. [id number] Geo Roberts MD [facility] ([facility] [address]) [address] [place] [address] 07/19/2025 10:39:12 07/19/2025 11:21:17 Loss of appetite 24118122 R63.0 28436 - Omeprazole initiated as an alternativ e [...] by Organization Details LastModified Time None Recorded Advance Directives Directive None Recorded Payers Insurance Date Sequence Insurance Name Policy Number Policy Colmenares Covered Member ID Colmenares Member ID Guarantor Name 07/23/2025 1 [facility] ([facility] [facility]PLAC[facility] - [place]MO) [facility] Rinku Mora [id number] Rinku Mora 05/26/2025 1 *SELF PAY* Aa juliet Mora Notes Date Note Type Note Provider Name and Address Organization Details Recorded Time 05/26/2025 text/html Annual WellnessReported by PatientSocial/Behavior al HistoryFor fracture risk, patient reportshistory of fractures. For additional lifestyle factors, patient reportstobacco usebut reportsno alcohol intake. For physical activity, patient reportsexercises on a regular basisandgood physical condition. For diet and nutrition, (pt states he does not eat good amounts, has been sick lately).Mental Status:For depression risk, patient reportssleep disturbances or insomnia,agitated, andloss of energybut reportsnever feels sad, empty, or tearful,no loss of interest in activities,no significant changes in weight,no feelings of worthlessness or guilt,no thoughts of suicide,no history of depression, andno history of mood disorders.Functional AbilityFor hearing, patient reportsno loss of hearing. For vision, patient reportsno vision problems. Pt states he has been having aching pain on left abdomen. ER visit on 05/18/25.He states since last week he has a feeling of emptiness in his stomach.Eating causes nausea. Patient also has known chronic hepatitis C and would like to proceed with treatment at this time. Geo Roberts MD [address] [place] [address], [phone], [facility] 05/30/2025 21:58:46 06/28/2025 text/html Pt here today to understand [...] fairly dark in color. Geo Roberts MD [address] [place] [address], [phone], [facility] 07/04/2025 09:42:00 07/19/2025 text/html Weight LossRepor kim by PatientHPIFor associated symptoms, patient reportsabdominal pain,nausea, [...] or meal replacement shakes. Geo Roberts MD [address] [place] [address] [place], [phone], [facility] 07/19/2025 11:20:58
--- OUTSIDE RECORDS SUMMARY | 2025-09-08 09:15 | XMS_ITS | Clinical Summary ---
Author Organization [facility] Address [address] [place]: Epic Prelude ADT JAIR RAMIREZ [phone] Care Team Providers Care Form Raiser Name Role Phone Unavailable Primary Care Provider Unavailabl e Allergies Active Allergy Reactions Criticality Noted Date Comments Codeine Itching Low 04/29/2012 Tamsulosin Weakness Medium 09/18/2016 Medications traMADoL (ULTRAM) 50 mg tablet Take 1 Tablet (50 mg) by mouth every 8 hours as needed for Pain. 6 Tablet None 10/29/19 17 Active methadone in 0.9 % sod.chlorid (methadone in sodium chloride 0.9%) 1 mg/ml Syringe by See Admin Instructions route daily. Active oxyBUTYnin (DITROPAN) 5 mg tabletIndicati ons:Frequency of micturition Take 1 Tablet (5 mg) by mouth 3 times daily. 90 Tablet 11 09/03/20 Active oxyBUTYnin (DITROPAN) 5 mg tabletIndicati ons:Frequency of micturition Take 1 Tablet (5 mg) by mouth 3 times daily. 90 Tablet 09/03/20 025 Discontinued Active Problems Problem Noted Date Diagnosed Date Sciatica of left side 10/12/2011 Lumbar pain 10/02/2011 Fever 10/02/2011 Tobacco use disorder 10/02/2011 Encounters Date Type Department Care Team Description 09/07/2025 External Device Data [facility] ABSTRACTION Provider, Abstract 09/07/2025 External Device Data [facility] ABSTRACTION Provider, Abstract 09/07/2025 External Device Data [facility] ABSTRACTION Provider, Abstract 09/03/2025 11:30 AM [employer] Office Visit [facility] [address] [place] [address] Vasquez Garcia MD Frequency of micturition (Primary Dx) 07/28/2025 Abstract [facility] [address] [place] [phone] Provider, Abstract from Last 3 Months Social History Tobacco Use Types Packs/Day Years Used Date Smoking Tobacco: Every Day Cigarettes Smokeless Tobacco: Former Alcohol Use Standard Drinks/Week Comments No 0 (1 standard drink = 0.6 oz pur e alcohol) Sex and Gender Information Value Date Recorded Sex Assigned at Not on file Legal Sex Male 3:02 AM [employer] Gender Identity Not on file Sexual Orientation Not on file Last Filed Vital Signs Vital Sign Reading Time Taken Comments Blood Pressure 125/66 10/29/2016 1:15 PM [employer] Pulse - - Temperature 36.7 C (98 F) 10/29/2016 10:22 AM [employer] Respiratory Rate 20 10/29/2016 1:15 PM [employer] Oxygen Saturation - - Inhaled Oxygen Concentration - - Weight 72.6 kg (160 lb) 10/29/2016 10:33 AM [employer] Height 182.9 cm (6') 10/29/2016 10:33 AM [employer] Body Mass Index 21.7 10/29/2016 10:33 AM [employer] Plan of Treatment Health Maintenance Due Date Last Done Comments HPV VACCINES (1 - 3-dose SCD M series) 2014 INFLUENZA VACCINE (#1) 2025 11/01/2016 DTAP/TDAP/TD VACCINES (7 - T d or Tdap) 11/01/2026 11/01/2016, 07/24/2002, 04/29/1992, Additional history exists HEPATITIS B VACCINES Completed 08/21/1997, 03/23/1997, 02/18/1997 Abdominal Aortic Aneurysm (A AA) Screening Completed 05/13/2013, 04/29/2013 Procedures Procedure Name Priority Date/Time Associated Diagnosis Comments POC URINALYSIS DIPSTICK AUTOMATED Routine 09/03/2025 11:[address] [employer] [address] [address] [address] ABDOMEN PELVIS WO CONTRAST Stat 05/13/2013 3:28 PM CDT Right ureteral calculus from Last 3 Months or Most Recently Relevant to Health Maintenance Results * POC URINALYSIS DIPSTICK AUTOMATED (09/03/2025 11:27 AM [employer]) COLOR UA Yellow Pale to Dark Yellow 09/03/2025 11:27 AM [facility] UA Clear Clear 09/03/2025 11:27 AM [employer] GLUCOSE UA Negative Negative 09/03/2025 11:27 AM [employer] BILIRUBIN UA Negative Negative 09/03/2025 11:27 AM [employer] [facility] KETONES UA Negative Negative 09/03/2025 11:27 AM [facility] BLOOD UA Negative Negative 09/03/2025 11:27 AM [facility] PH UA 7.0 5.0 - 8.0 09/03/2025 11:27 AM [facility] PROTEIN UA Negative Negative 09/03/2025 11:27 AM [facility] UROBILINOGEN UA 0.2 <2.0 mg/dL 11:27 AM [employer] [facility] NITRITE UA Negative Negative 09/03/2025 11:27 AM [facility] LEUKOCYTE ESTERASE UA Negative Negative 09/03/2025 11:27 AM [facility] SPECIFIC GRAVITY UA POC 1.020 1.000 - 1.030 09/03/2025 11:27 AM [facility] Urine 09/03/2025 11:2 7 AM [employer] 09/03/2025 11:29 AM [employer] us Vasquez Garcia MD POINT OF CARE TESTING Final Result [facility] CLIA# [id number] [address] [place] [address], [place] * CT ABDOMEN PELVIS WO CONTRAST (05/13/2013 3:28 PM CDT) Anatomical Region Laterality Modality Abdomen Other Narrative 05/14/2013 9:[address] ABDOMEN and PELVIS, non-contrast 13 May 2013 TECHNIQUE With the patient supine in the scanning gantry, with no oral or IV contrast administered, helical axial imaging was obtained from above the diaphragm through the pelvis at 5 mm increments for 90 axial images. Sagittal and coronal reconstructions are also obtained. DESCRIPTION No significant interval change is appreciated since the study 29 April 2013. The heart and lung bases appear unremarkable to the extent visualized. Unenhanced liver appears unremarkable. Status post cholecystectomy with surgical clips present is noted. Spleen appears mildly enlarged, but cannot be accurately quantified due to respiratory motion artifact Pancreas and adrenal glands appear unremarkable. Kidneys appear unremarkable with no hydronephrosis or nephrolithiasis. There is some fluid present in the distal small bowel without significant fluid level or obstructive distention. The colon appears unremarkable with moderate gas and fecal artifact. Appendix is tentatively identified, due to lack of peritoneal fat. Urinary bladder and pelvic structures appear unremarkable. No free fluid, free air, or adenopathy are seen. IMPRESSION 1. mild ileus 2. negative for urinary tract calculi or obstruction 3. status post cholecystectomy 4. minimal interval change since 29 April 2013 Procedure Note Jerrell Morris MD - 12/16/[address] ABDOMEN and PELVIS, non-contrast 13 May 2013 TECHNIQUE With the patient supine in the scanning gantry, with no oral or IV contrast administered, helical axial imaging was obtained from above the diaphragm through the pelvis at 5 mm increments for 90 axial images. Sagittal and coronal reconstructions are also obtained. DESCRIPTION No significant interval change is appreciated since the study 29 April 2013. The heart and lung bases appear unremarkable to the extent visualized. Unenhanced liver appears unremarkable. Status post cholecystectomy with surgical clips present is noted. Spleen appears mildly enlarged, but cannot be accurately quantified due to respiratory motion artifact Pancreas and adrenal glands appear unremarkable. Kidneys appear unremarkable with no hydronephrosis or nephrolithiasis. There is some fluid present in the distal small bowel without significant fluid level or obstructive distention. The colon appears unremarkable with moderate gas and fecal artifact. Appendix is tentatively identified, due to lack of peritoneal fat. Urinary bladder and pelvic structures appear unremarkable. No free fluid, free air, or adenopathy are seen. IMPRESSION 1. mild ileus 2. negative for urinary tract calculi or obstruction 3. status post cholecystectomy 4. minimal interval change since 29 April 2013 us Eber Davenport MD CT ORDERABLES Final Result from Last 3 Months or Most Recently Relevant to Health Maintenance Insurance [facility] [id number]
--- OUTSIDE RECORDS SUMMARY | 2025-09-08 09:15 | XMS_ITS | Continuity of Care Document ---
Author Organization [facility] Martínez Frazier [facility] Nik Sanabria, [facility] ([facility]) Address [address] [place] [address] Care Team Providers Care Employee Relations Assistant Name Role Phone GEO ROBERTS Primary Care Provider Assessment No assessment recorded. Plan of Treatment Reminders Order Date Submit Date Provider Last Modified By Organization Details Last Modified Time Details Appointments None record ed. Lab None record ed. Referral None record ed. Procedures None record ed. Surgeries None record ed. Imaging None record ed. Medication Orders None record ed. Patient TargetsNo targets recorded. Patient InstructionsNo instructions recorded. Reason for Referral None Reported. Results Created Date Observation Date Name Description Value Unit Range Abnormal Flag Note LastModifiedBy Organization Detail LastModifiedTime 05/26/2005/26/2025 CBC WBC 4.1 x10 4.5-10 .5 low Not Available [facility] [address], [place], [address], 05/26/2025 11:51:19 05/26/2005/26/2025 CBC RBC 4.58 x10 4.30-5 .90 Not Available [facility] [address], [place], [address], 05/26/2025 11:51:19 05/26/20 25 05/26/2025 CBC HGB 14.1 g/dL 13.5-1 8.0 Not Available [facility] [address] [facility] [address], [place], [address], 05/26/2025 11:51:19 05/26/2005/26/2025 CBC HCT 43.1 % 35.0-6 0.0 Not Available [facility] [address] [facility], [place], [address], 05/26/2025 11:51:19 05/26/2005/26/2025 CBC MCV 94.1 fL 80.0-9 9.9 Not Available [facility] [address] [facility], [place], [address], 05/26/2025 11:51:19 05/26/2005/26/2025 CBC MCH 30.8 pg 27.0-3 2.0 Not Available [facility] [address] [facility], [place], [address], 05/26/2025 11:51:19 05/26/2005/26/2025 CBC MCHC 32.7 g/dL 32.0-3 6.0 Not Available [facility] [address] [facility], [place], [address], 05/26/2025 11:51:19 05/26/2005/26/2025 CBC RDW 13.5 % 11.5-1 4.5 Not Available [facility] [address] [facility] [address], [place], [address], 05/26/2025 11:51:19 05/26/2005/26/2025 CBC plt 235.9 x10 150.0- 451.0 Not Available [facility] [address] [facility], [place], [address], 05/26/2025 11:51:19 05/26/2005/26/2025 CBC lymphocytes % 33.8 % 20.0-5 0.0 Not Available [facility] [address] [facility], [place], [address], 05/26/2025 11:51:19 05/26/20 25 05/26/2025 CBC granulcytes % 52.3 % 30.0-7 0.0 Not Available [facility] [address] [facility], [place], [address], 05/26/2025 11:51:19 05/26/2005/26/2025 CBC monocytes % 9.4 % 2.0-16 .0 Not Available [facility] [address] [facility], [place], [address], 05/26/2025 11:51:19 05/26/2005/26/2025 CBC granulcytes# 2.2 x10 Not Radha ilable [facility] [address] [address], [place], [address], 05/26/2025 11:51:19 05/26/2005/26/2025 CBC lymphocytes # 1.4 x10 Not Available [facility] [address] [facility], [place], [address], 05/26/2025 11:51:19 05/26/2005/26/2025 CBC monocytes # 0.4 x10 Not Avai lable [facility] [address] [address], [place], [address], 05/26/2025 11:51:19 05/26/2005/27/2025 CMP (MALE ) glucose 87.0 mg/dL 60.0-9 9.0 Not Available [facility] [address] [address], [place], [address], 05/27/2025 13:17:27 05/26/2005/27/2025 CMP (MALE ) BUN (blood urea nitrogen) 21.0 mg/dL 10.0-2 6.0 Not Available [facility] [address] [facility] 1, [place], [address], 05/27/2025 13:17:27 05/26/20 25 05/27/2025 CMP (MALE ) creatinine (serum) 1.0 mg/dL 0.4-1. 5 Not Available [facility] [address] [facility], [place], [address], 05/27/2025 13:17:27 05/26/20 25 05/27/2025 CMP (MALE ) BUN/creatini ne ratio 21.00 ratio Not Available [facility] [address] [facility], [place], [address], 05/27/2025 13:17:27 05/26/20 25 05/27/2025 CMP (MALE ) eGFR calculated 88.9 Not Available [facility] [address] [facility] [facility], [place], [address], 05/27/2025 13:17:27 05/26/20 25 05/27/2025 CMP (MALE ) total protein 7.2 g/dL 6.0-8. 5 Not Available [facility] [address] [facility], [place], [address], 05/27/2025 13:17:27 05/26/20 25 05/27/2025 CMP (MALE ) total bilirubin 0.8 mg/dL 0.2-1. 3 Not Available [facility] [address] [facility], [place], [address], 05/27/2025 13:17:27 05/26/20 25 05/27/2025 CMP (MALE ) albumin 4.6 g/dL 3.5-5. 5 Not Available [facility] [address] [facility], [place], [address], 05/27/2025 13:17:27 0805/27/2025 CMP (MALE ) globulin 2.6 calc Not Available [facility] [address] [facility], [place], [address], 05/27/2025 13:17:27 05/26/2005/27/2025 CMP (MALE ) AST (SGOT) 244.0 U/L 0.0-46 .0 high Not Available [facility] [address] [facility], [place], [address], 05/27/2025 13:17:27 05/26/2005/27/2025 CMP (MALE ) altv (SGPT) 296.0 U/L 13.0-6 9.0 abnormal Not Available [facility] [address] [facility], [place], [address], 05/27/2025 13:17:27 05/26/20 25 05/27/2025 CMP (MALE ) A/G ratio 1.8 ratio Not Available [facility] [address] [facility], [place], [address], 05/27/2025 13:17:27 05/26/20 25 05/27/2025 CMP (MALE ) ALP phos 173.0 U/L 30.0-1 40.0 abnormal Not Available [facility] [address] [facility], [place], [address], 05/27/2025 13:17:27 05/26/20 25 05/27/2025 CMP (MALE ) calcium 9.5 mg/dL 8.4-10 .5 Not Available [facility] [address] [facility], [place], [address], 05/27/2025 13:17:27 05/26/20 25 05/27/2025 CMP (MALE ) sodium 140.0 mmol/ L 136.0- 145.0 Not Available [facility] [address] [facility], [place], [address], 05/27/2025 13:17:27 05/26/2005/27/2025 CMP (MALE ) potassium 4.2 mmol/ L 3.5-5. 1 Not Available [facility] [address] [facility], [place], [address], 05/27/2025 13:17:27 05/26/20 25 05/27/2025 CMP (MALE ) chloride 99.0 mmol/ L 98.0-1 10.0 normal Not Available [facility] [address] [facility], [place], [address], 05/27/2025 13:17:27 05/26/20 25 05/27/2025 CMP (MALE ) C02 34.0 mmol/ L 22.0-3 1.0 high Not Available [facility] [address] [facility], [place], [address], 05/27/2025 13:17:27 05/26/20 25 05/27/2025 CMP (MALE ) anion gap 7.0 calc Not Available [facility] [address] [facility], [place], [address], 05/27/2025 13:17:27 05/26/2005/27/2025 CMP (MALE ) osmolality 291.4 calc Not Available [facility] [address] [facility], [place], [address], 05/27/2025 13:17:27 05/26/2005/31/2025 HEPAT ITIS B SURFA CE ANTIG EN W/REF L CONFI RM hepatitis B surface antigen NON-RE ACTIVE non-re active normal For addit ional infor morro pedraza e refer to http: //ella napier.kamila stdia gnost ics.c om/fa q/FAQ (This link is being provi ded for infor matio nal/ educa jeremy l purpo ses only. ) Not Available [facility] [address] [place], [address], 05/31/2025 02:30:38 05/26/2005/31/2025 HEPAT ITIS B CORE AB TOTAL hepatitis B core Ab total NON-RE ACTIVE non-re active normal For addit ional infor morro pedraza e refer to http: //[facility] rima falconque stdia gnost ics.c om/fa q/FAQ (This link is being provi ded for infor matio nal/ educa jeremy l purpo ses only. ) Not Available [facility] [address], [place], [address], 05/31/2025 02:30:41 05/26/2005/31/2025 HEPAT ITIS B SURFA CE ANTIB ABEBA [...] rizat ion reque st form. Not Available [facility] [address] [place], [address], 05/31/2025 02:30:42 05/26/2005/31/2025 ALPHA FETOP ROTEI N, [...] not be inter prete d as absol lower brule evide nce of the prese nce or absen ce of disea se. Not Available [facility] [address] [address] [address], [place], [address], 05/31/2025 02:30:42 05/26/2005/31/2025 HEPAT ITIS C VIRUS [...] infor morro pedraza e refer to http: //[facility] catcatie n.Que stDia gnost ics.c om/fa q/HCV Genot yping (This link is being provi ded for infor caroline joaquin/ educa jeremy l purpo ses only. ) [...] for clini evelia purpo ses. Not Available [facility] [address] [address] [address], [place], [address], 05/31/2025 02:30:43 05/26/2005/31/2025 HCV RNA, QUANT ITATI VE REAL TIME PCR HCV RNA, quantitative real time PCR <15 NOT DETECT ED IU/mL normal Not Available [facility] [address] [address] [place], [address], 05/31/2025 02:30:44 05/26/20 25 05/31/2025 HCV RNA, QUANT ITATI VE REAL TIME PCR HCV RNA, quantitative real time PCR <1.18 NOT DETECT ED log_I U/mL normal REFER ENCE RANGE : NOT DETEC KIM IU/mL NOT DETEC KIM Log IU/mL For addit ional infor morro pedraza e refer to http: //[facility] rima napier.que stdia gnost ics.c om/fa q/FAQ 22v1 (This link is being provi ded for infor caroline nal/ educa jeremy l purpo ses only. ) Not Available [facility] [address] [place], [address], 05/31/2025 02:30:44 06/22/20 25 06/21/2025 US, liver No observ ation record ed. [facility] [address] [place], [address], 06/23/2025 16:32:23 Result Notes None recorded. Problems Name Problem SNOMED Code Status Onset Date Resolution Date Notes Provider Name and Address Organization Details Recorded Time Chronic hepatitis C 533842926 Active 2024 Geo Roberts MD [address] [place] [address], [phone], [facility] 11:12:41 Gastroesophage al reflux disease without esophagitis 700929067 Active 2024 Geo Roberts MD [address] [place] [address], [phone], [facility] 11:13:38 Nocturia 779981218 Active 2024 Geo Roberts MD [address] [place] [address], [address], [facility] 09:34:46 Increased frequency of urination 514629360 Active 2024 Geo Roberts MD [address] [place] [address], [phone], [facility] 5 09:34:58 Liver function test above reference range 336639740 Active 2024 Geo Roberts MD [address] [place] [address], [phone], [facility] 5 09:38:57 Chronic prostatitis 61171580 Active 2024 Geo Roberts MD [address] [place] [address], [address] 5, [facility] 5 11:20:06 Loss of appetite 90648987 Active 2024 Geo Roberts MD [address] [place] [address], [address], [facility] 5 11:11:12 Problem Notes None recorded. Medical Equipment [...] Not Available Not Available Not Available Vitals None Recorded Social History Question Answer Notes LastModified by Organizat ion Details LastModified Time Tobacco Smoking Status Current Every Day Smoker vape Minnie [facility], [facility] 05/26/2025 11:02:26 What Is Your Level Of Caffeine Consumption? Moderate Information not available 07/19/2025 Which Illicit Or Recreational Drugs Have You Used? Marijuana [email or web address] Information not available 05/26/2025 What Type Of Marijuana Have You Used? Smoke Information not available 07/19/2025 Do You Or Have You Ever Used Marijuana? Current Some Days User [email or web address] Information not available 07/19/2025 What Was The Date Of Your Most Recent Tobacco Screening? 06/28/2025 [email or web address] Information not available 06/28/2025 Was Your Marijuana Use Recreational Or Medical? Recreational [email or web address] Information not available 07/19/2025 At What Age Did You Start Smoking Tobacco? 15 [email or web address] Information not available 07/19/2025 Have You Used IV Drugs? Yes [email or web address] Information not available 07/19/2025 Sex: Unknown Functional Status Question Answer Note LastModified by Organizat ion Details LastModified Time Do you use any illicit or recreational drugs? Yes [email or web address] Information not available 05/26/2025 What is your level of alcohol consumption? None [email or web address] Information not available 05/26/2025 Mental Status None recorded. Family History Nothing Reported. Medical History No medical history recorded. Immunizations Vaccine Type Date Status Note Provider Nam e and Address Organization Details Recorded Time DTaP 7 completed Not Available [facility] 07/19/2025 10:39:47 DTaP 7 completed Not Available [facility] 07/19/2025 10:39:47 IPV 7 completed Not [...] virus, quadrivalent, PF 7 completed Not Available [facility] 07/19/2025 10:39:47 Past Encounters Encounter ID Performer Location Encounter Start Date Encounter Closed Date Diagnosis/Indication Diagnosis SNOMED-CT Code Diagnosis ICD10 Code Diagnosis IMO Codes Diagnosis Note [id number] Geo Roberts MD [facility] ([facility]) [address] [place] [phone] 05/26/2025 10:48:20 05/26/2025 11:55:20 Chronic hepatitis C 772381550 B18.2 [id number] Discussed workup to evaluate for hepatitis C treatment. Patient would like to go ahead and proceed. Will obtain lab work and ultrasound . Gastroesop hageal reflux disease without esophagitis 442387903 K21.9 [id number] Concerned that the patient's symptoms are could be related to gastritis. Recommend starting pantoprazo le daily and follow-up if symptoms do not improve. [id number] Geo Roberts MD [facility] ([facility]) [address] [place] [phone] 06/21/2025 08:57:46 06/22/2025 14:34:08 Health Concerns Section Related Observation LastModified by Organization Detai ls LastModified Time None Recorded Concern Status LastModified by Organization Details LastModified Time None Recorded Payers Encounter Date Sequence Insurance Name Policy Number Policy Colmenares Covered Member ID Colmenares Member ID Guarantor Name 06/21/2025 1 [facility] ([place] REPLAC[place] - [place]MO) [facility] Rinku Mora [id number] Rinku Mora
--- OUTSIDE RECORDS SUMMARY | 2025-09-08 09:16 | XMS_ITS | Encounter Summary ---
Author Organization [facility] Address 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
--- NOTE | 2025-09-08 09:23 | ED_ITS ---
HPI - Abdominal Pain 2 General: Chief Complaint: Abdominal Pain Stated Complaint: n/v/d/f Time Seen by Provider: 09/08/25 09:22 History of Present Illness: 40-year-old man with a history of chroni c abdominal issues who presents to the emergency room with nausea and vomiting for last 4 days. He says this been going on for a long time. He thinks he might have an eating disorder. He says he was put on a medication for feelings of dysuria recently. He follows with a specialist for this. No fevers. No altered mental status. He says he is not smoking any marijuana. He says he has tried it to try to help the symptoms before but it did not help. Related Data Home Medications ?Medication ?Instructions ?Recorded ?Confirmed hydrocodone 5 mg-acetaminophen 325 1 tab PO .Q4-6H 09/08/25 mg tablet methadone 40 mg soluble tablet 80 mg PO DAILY 09/08/25 09/08/25 methadone 5 mg tablet 5 mg PO DAILY 09/08/2509/08 omeprazole 40 mg capsule,delayed 40 mg PO DAILY 09/08/25 release oxybutynin chloride 5 mg tablet 5 mg PO TID 09/08/25 1 11/08/24 Previous Rx's ?Medication ?Instructions ?Recorded ciprofloxacin HCl 500 mg tablet 500 mg PO BID 10 days #20 tabs 09/08/25 dexamethasone 6 mg tablet 6 mg PO DAILY 5 days #5 tabs 09/08/25 hydrocodone 5 mg-acetaminophen 325 1 tab PO Q6H PRN pa in #10 tabs 09/08/25 mg tablet metronidazole 500 mg tablet 500 mg PO Q8H 10 days #30 tabs 09/08/25 ondansetron 8 mg disintegrating 8 mg PO Q6H #14 tabs 1 11/08/24 tablet promethazine 25 mg rectal 25 mg OH Q6H PRN nausea and 09/08/25 suppository vomiting #12 ea sucralfate 1 gram tablet (Carafate) 1 g PO TID 4 weeks #84 tabs 09/08/25 Allergies Allergy/AdvReac Type Severity Reaction Status Date / Time Penicillins Allergy Intermediate ALGY-Hives Verified 09/08/25 09:18 Review of Systems 2 Narrative: Constitutional symptoms: Negative except as documented in HPI. Skin symptoms: Negative except as documented in HPI. Eye symptoms: Negative except as documented in HPI. ENMT symptoms: Negative except as documented in HPI. Respiratory symptoms: Negative except as documented in HPI. Cardiovascular symptoms: Negative except as documented in HPI. Gastrointestinal symptoms: Negative except as documented in HPI. Genitourinary symptoms: Negative except as documented in HPI. Musculoskeletal symptoms: Negative except as documented in HPI. Neurologic symptoms: Negative except as documented in HPI. Psychiatric symptoms: Negative except as documented in HPI. Endocrine symptoms: Negative except as documented in HPI. PFSH ED 2 PFSH: Medical History (Updated 09/08/25 @ 12:10 by Leonor Marshall MD) Hepatitis C No pertinent family history Surgical History History of cholecystectomy History of appendectomy History of tonsillectomy Family History Other Diabetes Hypertension Social History Smoking and tobacco/nicotine status: current every day tobacco/nicotine user (.5 half a pack a day for 20 yrs) cigarettes Packs smoked per day: 0.5 Years cigarettes smoked: 20 Physical Exam 2 Narrative: EXAM NARRATIVE: General: Alert, patient is quite thin Skin: Warm, dry. Head: Normocephalic, atraumatic. Neck: Supple, trachea midline. Eye: Extraocular movements are intact. Ears, nose, mouth and throat: Dry oral mucosa Cardiovascular: Regular, Normal peripheral perfusion. Respiratory: Lungs are clear to auscultation, respirations are non-labored, breath sounds are equal, Symmetrical chest wall expansion. Gastrointestinal: Soft, Nontender, Non distended Musculoskeletal: Normal ROM, no deformity. Neurological: Alert and oriented, No focal neurological deficit observed. Psychiatric: Cooperative, appropriate mood & affect. Course 2 Vital Signs: Vital signs: Vital Signs Temperature 98.3 F 09/08/25 09:14 Pulse Rate 81 09/08/25 12:36 Blood Pressure 115/71 09/08/25 12:36 Pulse Oximetry 99 09/08/25 12:36 Oxygen Delivery Me thod Room Air 09/08/25 11:37 MDM - Abdominal Pain Medical Decision Making Medical decision making Patient's reason for coming to the emergency room: Nausea and vomiting Social determinants: Self-employed I reviewed the patient's medical record. Patient last seen in the ER in May for gastroenteritis I reviewed the patient's current home meds Patient says he is not on Suboxone anymore. However I received a call after I called and requested hydrocodone and apparently he got 15 of those 2 days ago from his dentist. I have canceled them Alternate historians: None Differential diagnosis for this patient with nausea and vomiting including but not limited to and based on the above HPI, review of systems and physical exam: Urinary tract infection. Appendicitis. Cholecystitis. Colitis. small bowel obstruction. crohn's flare. pancreatitis. gastritis. peptic ulcer. cyclic vomiting. Viral illness. Influenza. COVID. Orders placed to evaluate differential diagnosis based on the above differential, HPI and physical exam Lab Review: Laboratory results were reviewed and interpreted by myself the emergency room physician. No leukocytosis. No anemia. No renal failure. Urinalysis negative for infection. Drug screen positive for opiates and marijuana. CT of the abdomen pelvis: Suggestion of inflammatory colitis along the descending and sigmoid colon. This was reviewed and interpreted by myself the emergency room physician. I also reviewed the radiology report. Assessment of risk: Level of risk: Moderate risk patient. Recurrence of gastrointestinal problems Hospitalization considerations: Patient was a bit difficult to get his vomiting to stop. Considered admitting but finally we got it under control. Reexamination: Patient says he feels much better now and is ready to go home. Patient remained stable. No increased work of breathing. No altered mental status. No focal motor deficits. Assessment and plan: Nausea and vomiting Dehydration ?IV Zofran x 2 doses, Compazine and Benadryl. IV fluids - Discharged home - Discussed findings and plan with patient. Answered any questions. - All laboratory values were reviewed and interpreted personally by myself, the ER physician - All imaging was reviewed and interpreted personally by myself, the ER physician. - Evaluation and treatment of this problem were appropriate in the emergency setting Lab Data 09/08/25 09:38 09/08/25 09:38 Labs/Radiology: Radiology Impressions Abdomen/Pelvis CT 09/08/25 10:23 IMPRESSION: 1. Findings suggestive of infectious/inflammatory colitis along the descending and sigmoid colon. 2. Mild swirling of the mid mesenteric vessels. However, there does not appear to be a true volvulus or evidence of bowel ischemia. Laboratory Results WBC 6.51 10^3/uL (3.29-11.43) 09/08/25 09:38 RBC 4.66 10^6/uL (3.85-5.65) 09/08/25 09:38 Hgb 14.60 g/dL (11.27-16.99) 09/08/25 09:38 Hct 42.9 % (37-53) 09/08/25 09:38 MCV 92.1 fl (82-101) 09/08/25 09:38 MCH 31.3 pg (27-33) 09/08/25 09:38 MCHC 34.0 g/dL (30-55) 09/08/25 09:38 RDW 11.8 % (12.1-15.1) L 09/08/25 09:38 Plt Count 242 10^3/cmm (157-399) 09/08/25 09:38 MPV 11.0 fL (7.4-10.4) H 09/08/25 09:38 Neut % (Auto) 81.9 % 09/08/25 09:38 Lymph % (Auto) 11.7 % 09/08/25 09:38 Mcpherson % (Auto) 5.7 % 09/08/25 09:38 Eos % (Auto) 0.3 % 09/08/25 09:38 Baso % (Auto) 0.2 % 09/08/25 09:38 Neut # (Auto) 5.34 10^3/uL (1.8-7.7) 09/08/25 09:38 Lymph # (Auto) 0.8 10^3/uL (0.8-4.8) 09/08/25 09:38 Mcpherson # (Auto) 0.4 10^3/uL (0.2-0.9) 09/08/25 09:38 Eos # (Auto) 0.0 10^3/uL (0.0-0.8) 09/08/25 09:38 Baso # (Auto) 0.0 10^3/uL (0.0-0.1) 09/08/25 09:38 Nucleated RBC % (auto) 0 % 09/08/25 09:38 Nucleated RBCs # 0.0 /100WBC 09/08/25 09:38 Sodium 138 mmol/L (136-145) 09/08/25 09:38 Potassium 4.2 mmol/L (3.5-5.1) 09/08/25 09:38 Chloride 98 mmol/L (98-107) 09/08/25 09:38 Carbon Dioxide 22 mmol/L (22-29) 09/08/25 09:38 Anion Gap 22.2 (5-19) H 09/08/25 09:38 BUN 16 mg/dL (6-20) 09/08/25 09:38 Creatinine 0.8 mg/dL (0.7-1.2) 09/08/25 09:38 GFR Calculation 108.2 mL/min (90-130) 09/08/25 09:38 Glucose 117 mg/dL (65-115) H 09/08/25 09:38 Calculated Osmolality 288 mOsm/kg (285-295) 09/08/25 09:38 Lactic Acid 3.0 mmol/L (0.5-2.2) H 09/08/25 09:38 Calcium 9.4 mg/dL (8.5-10.5) 09/08/25 09:38 Total Bilirubin 0.6 mg/dL (0.15-1.2) 09/08/25 09:38 AST 29 U/L (0-40) 09/08/25 09:38 ALT 45 U/L (0-41) H 09/08/25 09:38 Alkaline Phosphatase 143 U/L (40-130) H 09/08/25 09:38 C-Reactive Protein 3.0 mg/L (0.0-4.9) 09/08/25 09:38 Total Protein 7.1 g/dL (6.6-8.7) 09/08/25 09:38 Albumin 4.3 g/dL (3.5-5.2) 09/08/25 09:38 Globulin 2.8 g/dL (1.3-4.6) 09/08/25 09:38 Lipase 8 U/L (13-60) L 09/08/25 09:38 Urine Color Yellow (Yellow) 09/08/25 10:27 Urine Appearance Clear (CLEAR) 09/08/25 10:27 Urine pH 5.5 (5-7) 09/08/25 10:27 Ur Specific Antonito 1.031 (1.005-1.030) H 09/08/25 10:27 Urine Protein Trace (Negative) A 09/08/25 10:27 Urine Glucose (UA) Negative (Normal) 09/08/25 10:27 Urine Ketones 4+ (Negative) 09/08/25 10:27 Urine Blood Negative (Negative) 09/08/25 10:27 Urine Nitrate Negative (Negative) 09/08/25 10:27 Urine Bilirubin Negative (Negative) 09/08/25 10:27 Urine Urobilinogen 1.0 mg/dL (Negative) 09/08/25 10:27 Ur Leukocyte Esterase Negative (Negative) 09/08/25 10:27 Urine RBC 0-2 /hpf (0-2) 09/08/25 10:27 Urine WBC 0-5 /hpf (0-5) 09/08/25 10:27 Ur Squamous Epith Cells 0-5 /hpf (0-5) 09/08/25 10:27 Amorphous Sediment Not Reportable 09/08/25 10:27 Urine Bacteria None seen /hpf (NONE) 09/08/25 10:27 Hyaline Casts 0.40 /lpf 09/08/25 10:27 Urine Opiates Screen Positive ng/mL (Negative) H 09/08/25 10:27 Ur Barbiturates Screen Negative ng/mL (Negative) 09/08/25 10:27 Ur Phencyclidine Scrn Negative ng/mL (Negative) 09/08/25 10:27 Ur Amphetamines Screen Negative ng/mL (Negative) 09/08/25 10:27 U Benzodiazepines Scrn Negative ng/mL (Negative) 09/08/25 10:27 Urine Cocaine Screen Negative ng/mL (Negative) 09/08/25 10:27 U Marijuana (THC) Screen Positive ng/mL (Negative) H 09/08/25 10:27 Influenza A (PCR) Negative (Negative) 09/08/25 09:38 Influenza Type B (PCR) Negative (Negative) 09/08/25 09:38 RSV (PCR) Negative (Negative) 09/08/25 09:38 SARS-CoV-2 (PCR) Negative (Negative) 09/08/25 09:38 All radiology interpretation(s) finalized by discharge Discharge Plan Discharge Patient Disposition: Home Clinical Impression: Colitis, Dehydration Condition: Stable Prescriptions: New hydrocodone-acetaminophen 5-325 mg tablet 1 tab PO Q6H PRN (Reason: pain) Qty: 10 0RF promethazine 25 mg suppository 25 mg OH Q6H PRN (Reason: nausea and vomiting) Qty: 12 0RF sucralfate [Carafate] 1 gram tablet 1 g PO TID 28 Days Qty: 84 0RF Rx Instructions: with meals dexamethasone 6 mg tablet 6 mg PO DAILY 5 Days Qty: 5 0RF metronidazole 500 mg tablet 500 mg PO Q8H 10 Days Qty: 30 0RF ciprofloxacin HCl 500 mg tablet 500 mg PO BID 10 Days Qty: 20 0RF ondansetron 8 mg tablet,disintegrating 8 mg PO Q6H Qty: 14 0RF Rx Instructions: Take 1/2-1 tab every 6 hours as needed for nausea and vomiting No Action hydrocodone-acetaminophen 5-325 mg tablet 1 tab PO .Q4-6H omeprazole 40 mg capsule,delayed release(DR/EC) 40 mg PO DAILY methadone 40 mg Tablet,Soluble 80 mg PO DAILY oxybutynin chloride 5 mg tablet 5 mg PO TID methadone 5 mg Tablet 5 mg PO DAILY Discharge Orders: Discharge ED (Routine); Ordered 09/08/25 Ordered By: Leonor Marshall Discharge Diet: Advance as tolerated Patient Instructions: Abdominal Pain (ED), Colitis (ED), Opioid Safety, Pain Management, Patient Portal & Brenda Instructions Activity Restrictions/Additional Instructions: Please speak to your doctor about having you follow-up with gastroenterology if these abdominal issues that you have been having. Thank you for choosing [facility] for your healthcare needs today. You have been screened and evaluated and felt safe for discharge. Health conditions do change or evolve sometimes and as such it is important that you follow up with your Primary Doctor to be re checked, 3-5 days is a general good time frame for follow up. You are always welcome to return to the ED for re assessment if your symptoms are worsening or you have new concerns Print Language: [place] Coding Level of Care Code ED Hearing Aid Specialist for Maria L Bradshaw
[2025-09-08] MEDS: ondansetron 2 mg/ML SDV 2 mL 8 MG IVP ×2 (09:44→11:31)
[2025-09-08 10:15] LABS: Hematocrit 42.9 % (37-53); Hemoglobin 14.60 g/dL (11.27-16.99); Mean Corpuscular HGB Conc 34.0 g/dL (30-55); Mean Corpuscular Hemoglobin 31.3 pg (27-33); Mean Corpuscular Volume 92.1 fl (82-101); Nucleated Red Blood Cells % 0 %; Platelet Count 242 10^3/cmm (157-399); Red Blood Count 4.66 10^6/uL (3.85-5.65); White Blood Count 6.51 10^3/uL (3.29-11.43)
--- NOTE | 2025-09-08 10:23 | CTR_ITS ---
PROCEDURE INFORMATION: Exam: CT Abdomen And Pelvis With Contrast Exam date and time: 09/08/2025 10:29 AM Age: 40 years old Clinical indication: Pain; Other: Vomiting; Prior surgery; Surgery date: 6+ months; Surgery type: Gallbladder, appendix TECHNIQUE: Imaging protocol: Computed tomography of the abdomen and pelvis with contrast. Radiation optimization: All CT scans at this facility use at least one of these dose optimization techniques: automated exposure control; mA and/or kV adjustment per patient size (includes targeted exams where dose is matched to clinical indication); or iterative reconstruction. Contrast material: [id number]; Contrast volume: 100 ml; Contrast route: INTRAVENOUS (IV); COMPARISON: CT abdomen pelvis w con* [id number] 05/17/2025 11:37 AM RADIATION DOSE METRICS: Total DLP (mGy-cm): 316.1 FINDINGS: Liver: Normal. No mass. Gallbladder and biliary ducts: Status post cholecystectomy. No biliary ductal dilatation. Pancreas: Normal. No ductal dilation. Spleen: Normal. No splenomegaly. Adrenal glands: Normal. No mass. Kidneys and ureters: Normal. No hydronephrosis. Stomach and bowel: Fluid-filled cecum. Small to moderate stool scattered throughout the colon. No evidence of bowel obstruction. Wall thickening along the descending and sigmoid colon. The stomach is somewhat decompressed, limiting evaluation. Appendix: Status post appendectomy. Intraperitoneal space: Unremarkable. No free air. No significant fluid collection. Vasculature: Mild swelling of the mid mesenteric vessels. However, the superior mesenteric artery and vein maintain their anatomic relationship. Lymph nodes: Unremarkable. No enlarged lymph nodes. Urinary bladder: Unremarkable as visualized. Reproductive: Unremarkable as visualized. Bones/joints: Unremarkable. No acute fracture. Soft tissues: Unremarkable. CT/CT abdomen pelvis w con* [id number] IMPRESSION: 1. Findings suggestive of infectious/inflammatory colitis along the descending and sigmoid colon. 2. Mild swirling of the mid mesenteric vessels. However, there does not appear to be a true volvulus or evidence of bowel ischemia.
[2025-09-08 10:36] LABS: Alanine Aminotransferase 45 U/L (0-41); Albumin Level 4.3 g/dL (3.5-5.2); Alkaline Phosphatase 143 U/L (40-130); Blood Urea Nitrogen 16 mg/dL (6-20); Calcium 9.4 mg/dL (8.5-10.5); Carbon Dioxide 22 mmol/L (22-29); Chloride 98 mmol/L (98-107); Globulin 2.8 g/dL (1.3-4.6); Glucose 117 mg/dL (65-115); Lipase 8 U/L (13-60); Osmolality Calculated 288 mOsm/kg (285-295); Sodium 138 mmol/L (136-145); Total Protein 7.1 g/dL (6.6-8.7)
[2025-09-08 10:37] LABS: Lactic Sepsis W/Reflex 3.0 mmol/L (0.5-2.2)
[2025-09-08 10:38] LABS: Anion Gap 22.2 (5-19); Aspartate Amino Transferase 29 U/L (0-40); Potassium 4.2 mmol/L (3.5-5.1)
[2025-09-08 10:48] LABS: Respiratory Syncytial Virus Ce NEGATIVE (Negative); SARS-CoV-2 PCR NEGATIVE (Negative)
[2025-09-08 10:53] LABS: Glucose Urine UA Negative (Normal); Nitrate Urine Negative (Negative)
--- NOTE | 2025-09-08 10:57 | PC.PHAR ---
Patient states he took His Hydrocodone at 6am . Patient states he has only 1 left .. Last fill 09/06/25 #15 for 3days . Patient takes Methadone he gets enough for the week , verified with [facility].
[2025-09-08 11:00] LABS: PCP Screen Urine Negative (Negative)
[2025-09-08 11:13] LABS: Specific Gravity, Urine 1.031 (1.005-1.030)
[2025-09-08] MEDS: diphenhydrAMINE 50 mg/mL SDV 1mL IVP (11:32)
[2025-09-08 11:37] VITALS: BP 115/71; PULSE 84; O2SAT 100
[2025-09-08 11:52] LABS: Reflex Lactate Order REFLEX LACTIC ORDERD
[2025-09-08] MEDS: methylPREDNISolone sod succ 125 mg/2 mL INJ IVP (12:31)
[2025-09-08 12:36] VITALS: BP 115/71; PULSE 81; O2SAT 99
[2025-09-08 13:05] LABS: Lactic Acid level (Lactate) 1.5 mmol/L (0.5-2.2)
== END 2025-09-08 12:46 | disposition home or self-care (01) ==
PROVIDERS: Emergency Provider Emergency Medicine
DX: K52.9 Noninfective gastroenteritis and colitis, unspecified (principal); E86.0 Dehydration; Z11.52 Encounter for screening for COVID-19; F17.210 Nicotine dependence, cigarettes, uncomplicated
CPT/HCPCS: 36415; 74177; 80053; 80306; 81001; 83605; 83690; 85025; 86140; 87637; 96374; 96375; 96376; 99285; J0780; J1200; J2405; J2919; J7030